=== PATIENT | female | born 1940 | race African-American/Black ===

== ENCOUNTER 2019-07-21 20:01 | Emergency (ER) | payer OTHER ==
--- OUTSIDE RECORDS SUMMARY | 2019-07-21 20:05 | XMS REPORT | Clinical Summary ---
:1940 Author Organization [facility] Address [address] [place] [address] Care Team Providers Name Role Phone Felicita Duran MD Primary Care Provider Allergies Active Allergy Reactions Severity Noted Date Comments Codeine Itching High 05/28/2018 Severe itching Sulfa (Sulfonamide Other (See Comments) High 08/21/2018 S evere dry mouth Antibiotics) Medications Medication Sig Dispensed Refills Start Date End Date Status metoprolol 50 mg 2 (two) 2 04/19/2018 Acti ve tartrate times a day. (LOPRESSOR) 50 mg tablet rosuvastatin Take 40 mg by 0 05/08/2018 Ac tive (CRESTOR) 40 MG mouth nightly. tablet clopidogrel Take 1 tablet 90 tablet 3 05/28/2018 Act caitlyn (PLAVIX) 75 mg (75 mg total) tabletIndications: by mouth Coronary artery daily. disease involving eek coronary artery of eek heart without angina pectoris aspirin (ECOTRIN) Take 81 mg by 0 Active 81 MG enteric mouth daily. coated tablet amLODIPine Take 10 mg by 0 Activ e (NORVASC) 10 mg mouth daily. tablet multivit/folic Take 1 tablet 0 A ctive acid/vit K1 by mouth (ONE-A-DAY WOMEN'S daily. 50 PLUS ORAL) metFORMIN Take 1 tablet 0 08/25/2018 Activ e (GLUCOPHAGE) 500 (500 mg total) mg tablet by mouth 2 (two) times a day with meals. Hold metformin for 48 hours.Restart at 08/25/[address] 1 tablet 100 tablet 3 09/10/2018 Active (NITROSTAT) 0.4 MG (0.4 mg total) SL under the tabletIndications: tongue every 5 Coronary artery (five) minutes disease involving as needed for eek coronary chest pain. artery of eek heart without angina pectoris furosemide (LASIX) as needed. 0 09/16/2018 Active 20 mg tablet potassium chloride as needed. 0 09/16/2018 Active 20 mEq tablet extended release isosorbide Take 1 tablet 90 tablet 3 02/27/2019 02/26/19 Acti ve mononitrate (30 mg total) 21 (IMDUR) 30 MG 24 by mouth every hr morning. tabletIndications: Coronary artery disease involving eek coronary artery of eek heart without angina pectoris amLODIPine TK 1 T PO D 2 04/08/2018 08/22/19 Discon tinued (NORVASC) 10 mg 19 tablet metFORMIN TK 1 T PO WITH 1 05/09/2018 08/22/19 Disc ontinued (GLUCOPHAGE) 500 MEALS BID 19 mg tablet metFORMIN Take 500 mg by 0 08/24/19 Disco ntinued (GLUCOPHAGE) 500 mouth 2 (two) 19 (Reorder) mg tablet times a day with meals. nitroglycerin Place 0.4 mg 0 09/11/19 Dis continued (NITROSTAT) 0.4 MG under the 19 ( Reorder) SL tablet tongue every 5 (five) minutes as needed for chest pain. isosorbide Take 1 tablet 90 tablet 3 09/10/2018 02/27/19 Disc ontinued mononitrate (30 mg total) 20 (Reo rder) (IMDUR) 30 MG 24 by mouth every hr morning. 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 08/06/2018 Overview: Added automatically from request for damaris schuyler [id number] SOB (shortness of breath) 07/16/2018 Bilateral carotid bruits 07/16/2018 Encounter to establish care 05/28/2018 Coronary artery disease involving eek coronary kay ry of eek heart 05/28/2018 without angina pectoris TIA (transient ischemic attack) 05/28/2018 Encounters Date Type Specialty Care Team Description 05/19/2019 Travel 02/27/2019 Orders Only Cardiology Agustin White MA Coronary arter y disease involvi ng eek coronary artery of nativ e heart without a ngina pectoris 11/26/2018 Office Visit Cardiology Cynthia Grubbs Coronary artery disease involving eek coronary artery of eek heart without angina pectoris (Primary Dx); MD Fadumo Stented coronar y artery 09/10/2018 Office Visit Cardiology Cynthia Grubbs Coronary artery disease involving eek coronary artery of eek heart without angina pectoris (Primary Dx); MD Fadumo Chest pressure; Stented coronar y artery 08/26/2018 Telephone Cardiology Agustin White MA Patient Questi on 08/23/2018 Patient Outreach Quality Radha Franco RN 08/22/2018 Surgery Procedural Cynthia Grubbs PCI stent [[id number] Cardiology MD Fadumo (CPT)] 08/22/2018 - Hospital Encounter Cardiology Cynthia Grubbs 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 (HCC) (Primary Dx); 08/23/2018 MD Fadumo Coronary artery disease involving eek heart with angina pectoris, unspecified vessel or lesion type (HCC); Abnormal stress test 08/06/2018 Office Visit Cardiology Cynthia Grubbs Abnormal stress test (Primary Dx); MD Fadumo Coronary artery disease involving eek coronary artery of eek heart without angina pectoris; SOB (shortness of breath) 08/06/2018 Orders Only Cardiology Nakita Coronary artery disease involving eek heart with angina pectoris, unspecified vessel or lesion type (HCC) (Primary Dx); JM Butt Abnormal stress test 07/29/2018 Orders Only Cardiology Shannan Garcia MA after 07/20/2018 Social History Tobacco Use Types Packs/Day Years Used Date Never Smoker Smokeless Tobacco: Never Used Alcohol Use Drinks/Week oz/Week Comments Not Currently Sex Assigned at Date Recorded Not on file Job Start Date Occupation Industry Not on file Not on file Not on file Travel History Travel Start Travel End No recent travel history available. Last Filed Vital Signs Vital Sign Reading Time Taken Comments Blood Pressure 139/69 11/26/2018 10:45 AM CDT Pulse 59 11/26/2018 10:45 AM CDT Temperature 36.7 C (98 F) 08/23/2018 7:00 AM CDT Respiratory Rate 56 08/23/2018 9:30 AM CDT Oxygen Saturation 97% 08/23/2018 8:55 AM CDT Inhaled Oxygen Concentration - - Weight 80.7 kg (178 lb) 11/26/2018 10:45 AM CDT Height 162.6 cm (5' 4") 11/26/2018 10:45 AM CDT Body Mass Index 30.55 11/26/2018 10:45 AM CDT Plan of Treatment Health Maintenance Due Date Last Done Comments SHINGLES VACCINES (#1) 1992 65+ PNEUMOCOCCAL VACCINE (1 of 2 - PCV13) 07/05/2007 INFLUENZA VACCINE 09/13/2019 Implants Implanted Type Area Emt Intermediate Device Shelf Model / Identifier Expiration Serial / Date Lot Stent Coronary Syst Synergy (Mr) 3.00mm X 38mm - [id number] Coronary N/A: BSC 06/11/2020 [id number] / Implanted: 08/22/2018 at [facility] (Quantity not on file) Willis nts N/A INTERVENTIONAL / CARDIOLOGY [id number] System Clsr Sut Meditd 6fr Perclose Proglide - [id number] Surgic al N/A: MEJIA VASCULAR 05/12/2020 [id number] / Implanted: 08/22/2018 at [facility] (Quantity not on file) Imp lants; N/A DEVICES / Expanders; [id number] Extenders; Surgical Wires System Clsr Sut Meditd 6fr Perclose Proglide - [id number] Surgic al N/A: MEJIA VASCULAR 05/12/2020 [id number] / Implanted: 08/22/2018 at [facility] (Quantity not on file) Imp lants; N/A DEVICES / Expanders; [id number] Extenders; Surgical Wires Procedures Procedure Name Priority Date/Time Associated Comments Diagnosis ECG 12-LEAD Routine 09/10/2018 9:41 Chest pressure Results f or this AM CDT procedure are i n the results section. HC COMPLETE BLD COUNT Routine 08/23/2018 4:30 Re sults for this W/AUTO DIFF AM CDT procedure are i n the results section. ECG 12-LEAD Routine 08/23/2018 4:16 Results for this AM CDT procedure are i n the results section. ESTIMATED GFR Routine 08/23/2018 4:00 Results fo r this AM CDT procedure are i n the results section. BASIC METABOLIC PANEL Routine 08/23/2018 4:00 Re sults for this AM CDT procedure are i n the results section. ACTIVATED CLOTTING TIME Routine 08/22/2018 1:08 Results for this PM CDT procedure are i n the results section. ACTIVATED CLOTTING TIME Routine 08/22/2018 12:26 Results for this PM CDT procedure are i n the results section. ACTIVATED CLOTTING TIME Routine 08/22/2018 11:18 Results for this AM CDT procedure are i n the results section. CONSULT CARDIAC REHAB Routine 08/22/2018 11:02 PHASE 1 AM CDT ECG PRE/POST OP Routine 08/22/2018 10:58 Results for this AM CDT procedure are i n the results section. CV SELECTIVE CORONARY Routine 08/22/2018 10:20 Coronary artery Results for this ANGIOGRAPHY AM CDT disease involving procedure are in eek heart with the result s angina pectoris, section. unspecified vessel or lesion type (HCC) Abnormal stress test CV PCI STENT Routine 08/22/2018 10:20 Coronary artery Results for this AM CDT disease involving procedure are in eek heart with the result s angina pectoris, section. unspecified vessel or lesion type (HCC) Abnormal stress test ACTIVATED CLOTTING TIME Routine 08/22/2018 10:08 Results for this AM CDT procedure are i n the results section. ACTIVATED CLOTTING TIME Routine 08/22/2018 10:02 Results for this AM CDT procedure are i n the results section. ACTIVATED CLOTTING TIME Routine 08/22/2018 9:50 Results for this AM CDT procedure are i n the results section. ACTIVATED CLOTTING TIME Routine 08/22/2018 9:44 Results for this AM CDT procedure are i n the results section. ACTIVATED CLOTTING TIME Routine 08/22/2018 9:31 Results for this AM CDT procedure are i n the results section. ACTIVATED CLOTTING TIME Routine 08/22/2018 9:25 Results for this AM CDT procedure are i n the results section. ACTIVATED CLOTTING TIME Routine 08/22/2018 9:19 Results for this AM CDT procedure are i n the results section. ACTIVATED CLOTTING TIME Routine 08/22/2018 9:13 Results for this AM CDT procedure are i n the results section. ACTIVATED CLOTTING TIME Routine 08/22/2018 9:00 Results for this AM CDT procedure are i n the results section. ACTIVATED CLOTTING TIME Routine 08/22/2018 8:54 Results for this AM CDT procedure are i n the results section. ACTIVATED CLOTTING TIME Routine 08/22/2018 8:47 Results for this AM CDT procedure are i n the results section. ACTIVATED CLOTTING TIME Routine 08/22/2018 8:40 Results for this AM CDT procedure are i n the results section. ACTIVATED CLOTTING TIME Routine 08/22/2018 8:34 Results for this AM CDT procedure are i n the results section. ACTIVATED CLOTTING TIME Routine 08/22/2018 8:28 Results for this AM CDT procedure are i n the results section. ACTIVATED CLOTTING TIME Routine 08/22/2018 8:27 Results for this AM CDT procedure are i n the results section. ACTIVATED CLOTTING TIME Routine 08/22/2018 8:21 Results for this AM CDT procedure are i n the results section. POC GLUCOSE Routine 08/22/2018 6:07 Results for this AM CDT procedure are i n the results section. ECG 12-LEAD STAT 08/22/2018 5:57 Results for this AM CDT procedure are i n the results section. COPY RECEIVED FROM: Routine 08/12/2018 10:03 Resu lts for this AM CDT procedure are i n the results section. COPY(IES) SENT TO: Routine 08/12/2018 10:03 Resul ts for this AM CDT procedure are i n the results section. CBC WITH PLATELET AND STAT 08/12/2018 10:03 Abnormal stress Results for this DIFFERENTIAL AM CDT test procedure are in Coronary artery the results disease involving section. eek coronary artery of eek heart without angina pectoris SOB (shortness of breath) COMPREHENSIVE METABOLIC STAT 08/12/2018 10:03 Abnormal stre ss Results for this PANEL AM CDT test procedure are in Coronary artery the results disease involving section. eek coronary artery of eek heart without angina pectoris SOB (shortness of breath) PARTIAL THROMBOPLASTIN STAT 08/12/2018 10:03 Abnormal stres s Results for this TIME (PTT) AM CDT test procedure are in Coronary artery the results disease involving section. eek coronary artery of eek heart without angina pectoris SOB (shortness of breath) PROTHROMBIN TIME WITH STAT 08/12/2018 10:03 Abnormal stress Results for this INR AM CDT test procedure are in Coronary artery the results disease involving section. eek coronary artery of eek heart without angina pectoris SOB (shortness of breath) NM MYOCARDIAL PERFUSION Routine 08/01/2018 8:47 SOB (shortnes s of Results for this REST STRESS 1 DAY AM CDT breath) procedure are in CAD in eek the results artery section. Bilateral carotid bruits CV STRESS TEST NUCLEAR Routine 08/01/2018 8:47 SOB (shortness of Results for this CARDIO AM CDT breath) procedure are in CAD in eek the results artery section. US CAROTID DUPLEX Routine 07/30/2018 8:51 SOB (shortness of R esults for this BILATERAL AM CDT breath) procedure are in CAD in eek the results artery section. Bilateral carotid bruits TTE COMPLETE, WO Routine 07/24/2018 5:22 SOB (shortness of Re sults for this CONTRAST, W DOPPLER PM CDT breath) procedure are in (34344) CAD in eek the results artery section. after 07/20/2018 Results ECG 12 lead (09/10/2018 9:41 AM CDT)Only the most recent of3 resultswithin the time period is included. Pathologist Sig nature Ventricular rate 54 [facility] Atrial rate 54 [facility] NV interval 180 [facility] QRSD interval 90 [facility] QT interval 456 [facility] QTC interval 432 [facility] P axis 1 51 [facility] QRS axis 1 -45 [facility] T wave axis -62 [facility] EKG impression Sinus bradycardia-Left axis deviation-Poor R Wave Progression-T wave abnormality, consider anterolateral ischemia-T wave abnormality, consider inferior ischemia-Abnormal ECG-In automated comparison with [facility] MUSE ECG of 23-AUG-2018 04:16,-Inverted T waves have replaced nonspecific T wave abnormality in Lateral leads- Specimen Narrative Performed At This result has an attachment that is no t available. Performing Organization Address City/State/Zipcode Phone Number [facility] [place] [address] [place] [address] CBC with platelet and differential (08/23/2018 4:30 AM CDT)Only the most recent of2 resultswithin the time period is included. WBC 7.37 4.50 - 11.00 [facility] RBC 3.73 (L) 4.20 - 5.50 [facility] HGB 10.9 (L) 12.0 - 16.0 [facility] g/dL [facility] HCT 32.7 (L) 37.0 - 47.0 % [facility] MCV 87.7 82.0 - 100.0 [facility] MCH 29.2 27.0 - 34.0 pg [facility] MCHC 33.3 31.0 - 37.0 [facility] g/dL HOSPITAL RDW - SD 45.7 37.0 - 55.0 fL [facility] MPV 11.3 8.8 - 13.2 fL [facility] Platelet count 205 150 - 400 k/uL [facility] Nucleated RBC 0.00 /100 WBC [facility] Neutrophils 59.4 39.0 - 69.0 % [facility] Lymphocytes 28.4 25.0 - 45.0 % [facility] Monocytes 10.0 0.0 - 10.0 % [facility] Eosinophils 1.5 0.0 - 5.0 % [facility] Basophils 0.4 0.0 - 1.0 % [facility] Immature granulocytes 0.3Comment: 0.0 - 1.0 % [facility] "[facility] granulocytes" (promyelocytes , myelocytes, metamyelocytes ) Specimen Blood Performing Organization Address City/[facility]/Zipcode Phone Number [facility] DEPARTMENT OF PATHOLOGY AND [address] [place] [phone] Estimated GFR (08/23/2018 4:00 AM CDT) Estimated GFR 69 mL/min/1.73 [facility] Comment: m2 HOSPITAL Catergory Units Interpretation G1 >=90 Normal or high G2 60-89 Mildly decreased G3a 45-59 Mildly to moderately decreas ed G3b 30-44 Moderately to severely decre ased G4 15-29 Severely decreased G5 <15 Kidney failure The eGFR was calculated using the Chronic Kidney Disea se Epidemiology Collaboration (CKD-EPI) equation. Interpretation is based on recommendations of the National Kidney Foundation-Kidney Disease Outcomes Rommel lity Initiative (NKF-KDOQI) published in 2014. Specimen Plasma specimen Performing Organization Address City/[facility] Phone Number [facility] DEPARTMENT OF PATHOLOGY AND [address] [place] [address] [address] Basic metabolic panel (08/23/2018 4:00 AM CDT) Pathologist Sig nature Sodium 143 135 - 148 mEq/L [facility] Potassium 3.5 3.5 - 5.0 mEq/L [facility] Chloride 109 98 - 112 mEq/L [facility] CO2 24 24 - 31 mEq/L [facility] Anion gap 10@ANIO 7 - 15 mEq/L [facility] BUN 11 8 - 23 mg/dL [facility] Creatinine 0.93 (H) 0.50 - 0.90 mg/dL [facility] Glucose 93 65 - 99 mg/dL [facility] Calcium 8.9 8.8 - 10.2 mg/dL [facility] Specimen Plasma specimen Performing Organization Address City/State/Zipcode Phone Number [facility] DEPARTMENT OF PATHOLOGY AND [address] [place] [address] [phone] [address] Activated clotting time (08/22/2018 1:08 PM CDT)Only the most recent of19 resultswithin the time period is included. Activated clotting 175 (H) 96 - 152 sec [facility] Comment: HOSPITAL Meter ID: [id number] Sawmill Tally Clerk: Sharifa Crum Specimen Performing Organization Address City/[facility] Cent[facility] Phone Number [facility] DEPARTMENT OF PATHOLOGY AND [address] [place] [address] [phone] [address] ECG Pre/Post Op (in AM) (08/22/2018 10:58 AM CDT) Pathologist Sig nature Ventricular rate 54 [facility] Atrial rate 54 [facility] NV interval 190 [facility] QRSD interval 90 [facility] QT interval 468 [facility] QTC interval 443 [facility] P axis 1 25 [facility] QRS axis 1 -45 [facility] T wave axis -54 [facility] MUSE EKG impression Sinus bradycardia-Left anter ior fascicular block-Voltage criteria for left ventricular hypertrophy-Cannot rule out Inferior infarct (masked by fascicular block?) , age undetermined-T wave abnormality, consider anterolateral ischemia-Abnormal [facility] MUSE ECG- Specimen Narrative Performed At This result has an attachment that is no t available. Performing Organization Address City/[facility] Cent[facility]ode Phone Number [address] [address] Cv laboratory analyst procedure (08/22/2018 10:20 AM CDT) Specimen Narrative Performed At This result has an attachment that is no t available. [facility] Attending: Dr. Cynthia Grubbs Interventional Fellow: Hugo Mari MD EQUIPMENT/ANTICOAGULATION: Rt VEHICLE DYNAMICS ENGINEER 7F initially AL 0.75 followed by AL 0.75 with s ideholes, followed by JR4 guide, Lt VEHICLE DYNAMICS ENGINEER 6F diagnostic JL5, Lt CFV 4F veno us sheath [employer] Specialist 200, Cinthya 3, Fielder XT, Mohamud Blue coronary wire Anticoagulation: Heparin with ACT >250 sec prior to procedure PROCEDURAL DETAILS: The LMT was engaged with the JL5 diagnostic catheter for retrograde injections. The RCA was initially engaged with the AL 0.75 guide c mak. We decided to use the same guide catheter however with sideholes. We initially probed the proximal end of the LOG RIDER with a pilot plant technician 200 ov er Corsair. We decided that the guide was not sitting as adequately a s we had hoped. We thus switched our guide to a 7 Faroese FR4 Guide. We continued to probe the proximal LOG RIDER in the RCA with the Corsair and pilot plant technician 200. We performed antegrade wire escalation with the pilot plant technician 200, Cinthya 3, and Fielder XT coronary wires. Based on retrograde injections, we not ed that the LOG RIDER ended proximally to the bifurcation of the PDA and PL branches of the RCA. We eventually were able to reach luminal in the PDA wi th our wire and had good distal injection. We were concerned that our diss ection plane did involve the bifurcation. We advanced our corsair to th is bifurcation and ultimately switched out our wires for a Mohamud Blue gilda nary wire into the distal PDA. We then proceeded to dilate with a 1.5 x 1 5 mm balloon followed by 2.5 x 25 mm balloon. Following this, ang iography revealed good distal blood flow with dissection planes present. At this time we gave intracoronary nitroglycerin. However post this angiography revealed that the PL branch had shut down. This is likely a r esult of the dissection plane propagating into this branch. We th en decided to go ahead and start our stenting. We proceeded with a 3. 0 x 38 mm Synergy drug-eluting stent in the distal to mid portion of the RCA just proximal to the bifurcation. We then landed a 3.5 x 38 mm willis nt slightly overlapping this previous stent and into the ostial RC A. We then postdilated the stents with a 3.5 m noncompliant ballo on. Post angiography revealed good MIRANDA-3 flow in the distal RP DA and the aforementioned PL branch that was now occluded. No s ignificant EKG changes or chest pain during the procedure. The overal l length of the LOG RIDER was approximately 70 mm. Limited echo without effusion. HEMOSTASIS: Proglide bifemoral access, manual hemostas is for the venous sheath ADDITIONAL POST-PROCEDURE MEDICATIONS: PLAN: 1. ASA 81mg daily 2. Clopidogrel 75mg daily . 3. Cardiac medical therapy and aggressive risk factor modification. Cardiac rehabilitation. 4. Transferred in stable condition Performing Organization Address [facility] [place] Phone Number [facility] [address] [place] [address], POC glucose (08/22/2018 6:07 AM CDT) Pathologist Sig [employer] POC glucose 108 (H) 65 - 99 mg/dL [facility] Comment: [facility] Notified RN Meter ID: [id number] Sawmill Tally Clerk: Buddy Rivera Specimen Performing Organization Address [facility] [place] Phone Number [facility] DEPARTMENT OF PATHOLOGY AND [address] [place], [place] [address] GENOMIC MEDICINE [facility] [address] [place] [address] COPY RECEIVED FROM: (08/12/2018 10:03 AM CDT) Pathologist [facility] [place] Copy received from: [employer] Comment: [address] [place] [address] Specimen Narrative Performed At FASTING:NO [facility] FASTING: NO Performing Organization Address [facility] [place] Phone Number [facility] COPY(IES) SENT TO: (08/12/2018 10:03 AM CDT) Pathologist Sig nature Copies/mL [facility] Comment: TAN CARDIO [address] [facility] [address] [place] [address] Specimen Narrative Performed At FASTING:NO [facility] FASTING: NO Performing Organization Address [facility] [place] Phone Number [facility] Partial thromboplastin time, activated (08/12/2018 10:03 AM CDT) PTT 25 22 - 34 sec [facility] Comment: SAGE This test has not been validated for monitoring unfractionated heparin therapy. For testing that is validated for this type of therapy, please refer to the Heparin Anti-Xa assay (test code 91920). For additional information, please refer to [email or web address].Topicmarks/faq/NKF752 (This link is being provided for informational/educational purposes only.) Specimen Blood Narrative Performed At FASTING:NO [facility] FASTING: NO Resulting Agency Comment Performing Organization Information: Site ID: [facility] Name: [id number] Address: [address] [place] [phone] Director: Sosa Mishra Performing Organization Address City/[facility] Centercode Phone [place] [address] Prothrombin time with INR (08/12/2018 10:03 AM CDT) INR 1.0 [facility] Comment: SAGE Reference Range 0.9-1.1 Moderate-intensity Warfarin Therapy 2.0-3.0 Higher-intensity Warfarin Therapy 3.0-4.0 Prothrombin time 10.4 9.0 - 11.5 [facility] Comment: sec SAGE For more information on this test, go to: [email or web address]/LAV328 Specimen Blood Narrative Performed At FASTING:NO [facility] FASTING: NO Resulting Agency Comment Performing Organization Information: Site ID: [facility] Name: [id number] Address: [address] [place] [phone] Director: Sosa Mishra Performing Organization Address City/[facility] Centercode Phone [place] [address] Comprehensive metabolic panel (08/12/2018 10:03 AM CDT) Glucose 88 65 - 139 [facility] Comment: mg/dL SAGE Non-fasting reference interval BUN, whole blood 12 7 - 25 mg/dL [facility] Creatinine 1.19 (H) 0.60 - 0.93 [facility] Comment: mg/dL SAGE For patients >49 years of age, the reference limit for Creatinine is approximately 13% higher for people identified as -[place]. EGFR Non-Afr. 44 (L) > OR = 60 [facility] [place] mL/min/1.73m SAGE 2 EGFR 51 (L) > OR = 60 [facility] [place] mL/min/1.73m S[facility] 2 BUN/creatinine 10 6 - 22 [facility] ratio (calc) [facility] Sodium 144 135 - 146 [facility] mmol/L [facility] Potassium 3.9 3.5 - 5.3 [facility] mmol/L [facility] Chloride 107 98 - 110 [facility] mmol/L [facility] CO2 27 20 - 32 [facility] mmol/L [facility] Calcium 9.9 8.6 - 10.4 [facility] mg/dL [facility] Protein 7.1 6.1 - 8.1 [facility] g/dL [facility] Albumin, S 4.3 3.6 - 5.1 [facility] g/dL [facility] Globulin, total 2.8 1.9 - 3.7 [facility] g/dL (calc) SAGE Albumin/globulin 1.5 1.0 - 2.5 [facility] ratio (calc) [facility] Total bilirubin 0.4 0.2 - 1.2 [facility] mg/dL [facility] Alkaline 120 33 - 130 U/L [facility] phosphatase SAGE AST 17 10 - 35 U/L [facility] SAGE ALT 18 6 - 29 U/L [facility] SAGE Specimen Blood Narrative Performed At FASTING:NO [facility] FASTING: NO Resulting Agency Comment Performing Organization Information: Site ID: [id number] Name: [email or web address] telly Address: [address] [place] [id number] Director: Sosa Mishra Performing Organization Address City/State/Zipcode Phone Number As Seen on TV [address] [address] Cv stress test (08/01/2018 8:47 AM CDT) Resting HR 74 [facility] Resting BP 145 [facility] Peak MET Achieved 6.1 [facility] Protocol Name AMITA [facility] Time in Exercise 00:04:15 [facility] Phase Max Systolic BP 210 [facility] Max Diastolic BP 94 [facility] Max Heart Rate 142 [facility] Max Predicted Heart 144 [facility] Rate Target HR Formula (220 - Age)*85% [facility] Test Indication Shortness of Breath [facility] Arrhy During Ex [facility] ECG Interp Before EX [facility] ECG Interp During Ex [facility] Ex Summary Comment [facility] Chest Pain Statement none [facility] Overall HR Response [facility] to Exercise Overall BP Response [facility] To Exercise Reason for Fatigue [facility] Termination Stress Test Waveform interpreted in [facility] Impression report associated with image study. No interpretation is provided as part of this Stress ECG report.--Electronically Signed By Jorge MONTGOMERY, Noelle Craig ([id number]), editor managing newspaper Khoi Sethi ([id number]) on 08/07/2018 10:14:00 AM Specimen Narrative Performed At This result has an attachment that is no t available. Performing Organization Address City/State/Zipcode Phone Number [facility] [address] [place] [address] Nm myocardial perfusion (08/01/2018 8:47 AM CDT) Specimen Narrative Performed At [facility] [address] [place] [address] Myocardial Pe rfusion Imaging Report Stress ECG tracings are availab le in [facility], [employer] and [employer] Web All ECG interpretations a re included in this report Pat.Name: KAYLNYN JOSEPH Pat.ID: [id number] .Date: 07/30/2018 Refer.MD: Daron Exam Time: 7:30:00 AM Study Type:Myocardial Perfusion Imaging Height: 64in Weight: 177.63lb BSA: 1.86 m2 Ag e: 1940,78Y Sex: FEMALE Nuclear Tech:Vasyl Ta MOAndrew Nuclear Event ID:[id number] Order ID: [id number] Reason for Study:CAD, unspecified*, Shor tness of breath Procedures:Single Day Rest / Stress Race: B Clinical Symptoms:Exercise SUMMARY: BASELINE ECG Normal Sinus Rhythm STRESS TEST RESULTS Maximal Predicted HR 144 beats/minute 85% Maximal Predicted HR 122 beats/minute Stress Test Duration 04 minutes 15 seconds Resting Heart Rate 71 beats/minute Ma ximal Heart Rate 142 beats/minute Resting Blood Pressure 145/84 mmHg Ma ximal Blood Pressure 210/94 mmHg % Maximal Heart Rate Achieved 99% METS Achieved/Maximal RPP 6.1 ,820 Symptoms During Test Dyspnea Reason for Stopping Test Patient achi eved >= 85% maximal predicted heart rate for age Maximal ST-segment shift None Stress-Induced Arrhythmias None Montejo Treadmill Score Ischemic electrocardiographic changes ( ST-segment depression) did not occur at peak exercise stress. _. STRESS TEST INTERPRETATION Normal maxim al exercise treadmill test. Exercise tolerance is good. The Montejo T readmill Score is of low prognostic risk. __. SCINTIGRAPHIC RESULTS Perfusion Defect Size (% LV) 15% Total 0% Ischemia 15% Scar Left Ventricular Perfusion Results There is a moderate inferoapical, mid i nferior, basal inferior perfusion defect during stress which rem ains unchanged with rest imaging. Gated SPECT Results The post stress left ventricular ejecti on fraction is 59% with akinesis of the inferior wall. Left ve ntricular end-diastolic volume is 82 ml; end-systolic volume is 34 ml . The left ventricle is of normal size at stress and rest. The ri ght ventricle is of normal size with normal wall motion. Conclusion Abnormal regadenoson Tc-99m tetrofosmin myocardial perfusion study compatible with scar in the right torres ry artery vascular territory. The LVEF is normal. Comments The study results indicate a intermedia te (1%-2%) annual risk for a cardiac or non-fatal myocardial in farction. Study Quality/Artifacts The study quality is good. Comparison to Previous Study None available. Signed 07/31/2018 4:35:00 PM Noelle Patel MD Procedure Note Interface, Radiology Results In - 2018 8:49 AM CDT [facility] and Cardiac CT [address] [place] [address] Myocardial Perfusion I maging Report Stress ECG tracings are available in [facility], [employer] and [employer] Web All ECG interpretations are in cluded in this report Pat.Name: KAYLYNN JOSEPH Pat.I D: [id number] St.Date: 07/30/2018 Refer .: Daron Exam Time: 7:30:00 AM Study Type:Myocardial Perfusion Imaging Height: 64in Weigh t: 177.63lb BSA: 1.86 m2 Age: 5 1940,78Y Sex: FEMALE Nucle ar Tech:GERA Dobbs Nuclear Event ID:[id number] Order ID: [id number] Reason for Study:CAD, unspecified*, Shor tness of breath Procedures:Single Day Rest / Stress Race: B Clinical Symptoms:Exercise SUMMARY: BASELINE ECG Normal Sinus Rhythm STRESS TEST RESULTS Maximal Predicted HR 144 beats/minute 85% Maximal Predicted HR 122 beats/minute Stress Test Duration 04 minutes 15 se conds Resting Heart Rate 71 beats/minute Max imal Heart Rate 142 beats/minute Resting Blood Pressure 145/84 mmHg Max imal Blood Pressure 210/94 mmHg % Maximal Heart Rate Achieved 99% METS Achieved/Maximal RPP 6.1 ,820 Symptoms During Test Dyspnea Reason for Stopping Test Patient achie lexie >= 85% maximal predicted heart rate for age Maximal ST-segment shift None Stress-Induced Arrhythmias None Montejo Treadmill Score Ischemic electrocardiographic changes ( ST-segment depression) did not occur at peak exercise stress. _. STRESS TEST INTERPRETATION Normal maxim al exercise treadmill test. Exercise tolerance is good. The Montejo Tr eadmill Score is of low prognostic risk. __. SCINTIGRAPHIC RESULTS Perfusion Defect Size (% LV) 15% Total 0% Ischemia 15% Scar Left Ventricular Perfusion Results There is a moderate inferoapical, mid i nferior, basal inferior perfusion defect during stress which rem ains unchanged with rest imaging. Gated SPECT Results The post stress left ventricular ejecti on fraction is 59% with akinesis of the inferior wall. Left bessie tricular end-diastolic volume is 82 ml; end-systolic volume is 34 ml. The left ventricle is of normal size at stress and rest. The rig ht ventricle is of normal size with normal wall motion. Conclusion Abnormal regadenoson Tc-99m tetrofosmin myocardial perfusion study compatible with scar in the right torres ry artery vascular territory. The LVEF is normal. Comments The study results indicate a intermedia te (1%-2%) annual risk for a cardiac or non-fatal myocardial in farction. Study Quality/Artifacts The study quality is good. Comparison to Previous Study None available. Signed 07/31/2018 4:35:00 PM Noelle Patel MD Performing Organization Address [facility]State/[facility] Phone Number [facility] [address] [place] [address] carotid duplex (07/30/2018 8:51 AM CDT) Specimen Narrative Performed At [facility] Carotid Kay ry Ultrasound Report Pat.Name: KAYLYNN JOSEPH Pat.ID: [id number] .Date: 07/30/2018 Refer.MD: CYNTHIA GRUBBS MD Exam Time: 8:14:00 AM Study Type:C arotid Age: 7 1940,78Y Sex: FEMALE Sonogrphr: Ruth Solano RVT Pat. Stat.:Outp atient Room: [facility] ol: SD, CPT - 4: 94951 Echo Even t ID:[id number] Order ID: [id number] Reason for Study:Carotid bruit, Hx of CA D, HTN, HLD, DM Race: B SUMMARY: CAROTID ARTERY SCAN RIGHT: There is smooth intimal lining in the common carotid artery. There is hard and calcified plaque not ed in the bulb extending into the proximal external carotid artery. Colorflow is undisturbed. There is antegrade flow in the vertebral artery. LEFT: There is smooth intimal l ining in the common carotid artery. There is hard and soft plaque no john paul in the bulb extending into the proximal internal carotid artery. Colorflow is normal. There is antegrade flow in the vertebral artery. PRELIMINARY FINDINGS 1. Non stenotic plaque in the right c arotid bulb. 2. <50% stenosis in the left bulb/inter nal carotid artery. 3. <50% stenosis in the right external carotid artery. 4. There is antegrade flow in the verte bral artery, bilaterally. PHYSICIAN INTERPRETATION Bilateral carotid duplex examination de monstrated atherosclerotic plaques in both carotid bulbs and left i nternal carotid artery. Less than 50% stenosis in the bulb and market research intern al carotid artery, bilaterally. <50% stenosis in the right external car otid artery. Both vertebral arteries are antegrade. Carotid Findings: Right Left Verteb.Flw Antegrade Antegrade Subclavian Biphasic Biphasic MEASUREMENTS: DOPPLER Right CCA Dist CCA Dist PSV 49.2 cm/s CCA Dist EDV 9.84 cm/s Right CCA Mid CCA Mid PSV 53.6 cm/s CCA Mid EDV 10.9 cm/s Right CCA Prox CCA Prox PSV 60.1 cm/s CCA Prox EDV 8.75 cm/s Right Bulb Bulb PSV 47 cm/s Bulb EDV 12 cm/s Right ECA Prox ECA Prox PSV 40.5 cm/s ECA Prox EDV 0 cm/s Right ICA Mid ICA Mid PSV 35.3 cm/s ICA Mid EDV 10.3 cm/s Right ICA Prox ICA Prox PSV 38.1 cm/s ICA Prox EDV 9.78 cm/s Right Vertebral Vertebral PSV 42.7 cm/s Vertebral EDV 9.84 cm/s Right SCA Prox SCA Prox PSV 88.2 cm/s SCA Prox EDV 0 cm/s Left CCA Dist CCA Dist PSV 48.5 cm/s CCA Dist EDV 9.95 cm/s Left CCA Mid CCA Mid PSV 60.9 cm/s CCA Mid EDV 11.2 cm/s Left CCA Prox CCA Prox PSV 74.3 cm/s CCA Prox EDV 12.4 cm/s Left Bulb Bulb PSV 43.5 cm/s Bulb EDV 11.2 cm/s Left ECA Prox ECA Prox PSV 39.8 cm/s ECA Prox EDV 0 cm/s Left ICA Dist ICA Dist PSV 76.1 cm/s ICA Dist EDV 21.7 cm/s Left ICA Mid ICA Mid PSV 64.5 cm/s ICA Mid EDV 15.9 cm/s Left ICA Prox ICA Prox PSV 51 cm/s ICA Prox EDV 11.2 cm/s Left Vertebral Vertebral PSV 33.8 cm/s Vertebral EDV 7.24 cm/s Right ICA/CCA Ratio ICA/CCA PSV 0.711 Left ICA/CCA Ratio ICA/CCA PSV 0.837 Right ICA Dist ICA Dist PSV 47 cm/s ICA Dist EDV 16 cm/s Left SCA Prox SCA Prox PSV 116 cm/s SCA Prox EDV 0 cm/s Signed 08/02/2018 11:21 AM Cynthia Grubbs MD Procedure Note Interface, Radiology Results In - 2018 11:22 AM CDT [facility] Carotid Artery Ultras ound Report Pat.Name: KAYLYNN JOSEPH Pat.I D: [id number] St.Date: 07/30/2018 Refer .MD: CYNTHIA GRUBBS MD Exam Time: 8:14:00 AM Study Type:Carotid Age: 5 1940,78Y Sex: FEMALE Sonogrphr: Ruth Solano RVT Pat. Stat.:Outpatient Room: [facility] Vol: SD, CPT - 4: 29666 Echo Event ID:[id number] Order ID: [id number] Reason for Study:Carotid bruit, Hx of CA D, HTN, HLD, DM Race: B SUMMARY: CAROTID ARTERY SCAN RIGHT: There is smooth intimal lining in the common carotid artery. There is hard and calcified plaque note d in the bulb extending into the proximal external carotid artery. C olorflow is undisturbed. There is antegrade flow in the vertebral artery. LEFT: There is smooth intimal lini ng in the common carotid artery. There is hard and soft plaque no john paul in the bulb extending into the proximal internal carotid artery. C olorflow is normal. There is antegrade flow in the vertebral artery. PRELIMINARY FINDINGS 1. Non stenotic plaque in the right ca rotid bulb. 2. <50% stenosis in the left bulb/inter nal carotid artery. 3. <50% stenosis in the right external carotid artery. 4. There is antegrade flow in the verte bral artery, bilaterally. PHYSICIAN INTERPRETATION Bilateral carotid duplex examination de monstrated atherosclerotic plaques in both carotid bulbs and left i nternal carotid artery. Less than 50% stenosis in the bulb and market research intern al carotid artery, bilaterally. <50% stenosis in the right external car otid artery. Both vertebral arteries are antegrade. Carotid Findings: Right Left Verteb.Flw Antegrade Antegrade Subclavian Biphasic Biphasic MEASUREMENTS: DOPPLER Right CCA Dist CCA Dist PSV 49.2 cm/s CCA Dist EDV 9.84 cm/s Right CCA Mid CCA Mid PSV 53.6 cm/s CCA Mid EDV 10.9 cm/s Right CCA Prox CCA Prox PSV 60.1 cm/s CCA Prox EDV 8.75 cm/s Right Bulb Bulb PSV 47 cm/s Bulb EDV 12 cm/s Right ECA Prox ECA Prox PSV 40.5 cm/s ECA Prox EDV 0 cm/s Right ICA Mid ICA Mid PSV 35.3 cm/s ICA Mid EDV 10.3 cm/s Right ICA Prox ICA Prox PSV 38.1 cm/s ICA Prox EDV 9.78 cm/s Right Vertebral Vertebral PSV 42.7 cm/s Vert ebral EDV 9.84 cm/s Right SCA Prox SCA Prox PSV 88.2 cm/s SCA Prox EDV 0 cm/s Left CCA Dist CCA Dist PSV 48.5 cm/s CCA Dist EDV 9.95 cm/s Left CCA Mid CCA Mid PSV 60.9 cm/s CCA Mid EDV 11.2 cm/s Left CCA Prox CCA Prox PSV 74.3 cm/s CCA Prox EDV 12.4 cm/s Left Bulb Bulb PSV 43.5 cm/s Bulb EDV 11.2 cm/s Left ECA Prox ECA Prox PSV 39.8 cm/s ECA Prox EDV 0 cm/s Left ICA Dist ICA Dist PSV 76.1 cm/s ICA Dist EDV 21.7 cm/s Left ICA Mid ICA Mid PSV 64.5 cm/s ICA Mid EDV 15.9 cm/s Left ICA Prox ICA Prox PSV 51 cm/s ICA Prox EDV 11.2 cm/s Left Vertebral Vertebral PSV 33.8 cm/s Vert ebral EDV 7.24 cm/s Right ICA/CCA Ratio ICA/CCA PSV 0.711 Left ICA/CCA Ratio ICA/CCA PSV 0.837 Right ICA Dist ICA Dist PSV 47 cm/s ICA Dist EDV 16 cm/s Left SCA Prox SCA Prox PSV 116 cm/s SCA Prox EDV 0 cm/s Signed 08/02/2018 11:21 AM Cynthia Grubbs MD Performing Organization Address City/State/Zipcode Phone Number [facility] [address] [place] [address] Echocardiogram complete w contrast and 3D if needed (07/24/2018 5:22 PM CDT) Specimen Narrative Performed At [facility] Echo cardiography Report Pat.Name: KAYLYNN JOSEPH.ID: [id number] .Date: 07/24/2018 Refer.MD: CYNTHIA GRUBBS MD Exam Time: 2:18:00 PM Study Type:R outine Echo Height: 64in Weight: 176lb BSA: 1.85 m2 Ag e: 1940,78Y Sex: FEMALE BP: 169/77 HR: 56 bpm Sonogrphr: PADMINI Ni FASE Pat. Stat.:Outpatient Room: [place] Study Status:Final Echo Event ID:[id number] Order ID: [id number] Reason for Study:SOB, suspected cardiac etiology Procedures:2D Echo, Colorflow Doppler Race: B SUMMARY: LV EF is normal. There are inferior wa ll motion abnormalities (see diagram). RV systolic function is normal. FINDINGS: LV: LV size is normal. LV EF is normal. Estimated EF is 60-64%. RV: RV size is normal. RV systo lic function is normal. RV wall motion is normal. LA: LA size is normal. RA: RA size is normal. AO: Aortic root diameter is nor mal. DARBY: No pericardial effusion. AV: No structural AV abnormalit ies noted. MV: No structural MV abnormalit ies noted. A trace of mitral regurgitation. PV: No structural PV abnormalit ies noted. A trace of pulmonic regurgitation. TV: No structural TV abnormalit ies noted. Blevins: LV relaxation is reduced, ap propriate for age. LV filling pressure is normal. Other: Insufficient TR jet to estim ate PA systolic pressure. MEASUREMENTS: 2D Parasternal Long Rumson LVOT 1.9 cm LA Ds 3 cm LVIDd 4.2 cm Index 2.3 cm/m Ao Rtd 2.8 cm Index 1.5 cm/m LVIDs 2.7 cm LV Mas s 147 g (87-129) LV%fs 36 % LVM In dex 79.5 g/m2 IVSd 1.2 cm RWT 0.4 LVPWd 0.9 cm LA Sng Plane LA Area 18.3 cm2 (8.8-23.4) LA Vol 51.3 ml Index 27.7 ml/m LA LngAx 5.6 cm WALL MOTION: RESTING WALL MOTION: Basal Inferior wall is akinetic. Mid I nferior wall is hypokinetic. Normal in all other tamayo. Wall Index = 1.2 Signed 07/25/2018 06:59 PM Christy Fitzgerald M.D. Procedure Note Interface, Radiology Results In - 2018 7:00 PM CDT [facility] Echocardiography Report Pat.Name: KAYLYNN JOSEPH D: [id number] .Date: 07/24/2018 Refer .MD: CYNTHIA GRUBBS MD Exam Time: 2:18:00 PM Study Type:Routine Echo Height: 64in Weigh t: 176lb BSA: 1.85 m2 Age: 5 1940,78Y Sex: FEMALE BP: 169/77 HR: 56 bpm Sonogrphr: PADMINI Ni FASE Pat. Stat.:Outpatient Room: [place] Study Status:Final Echo Event ID:[id number] Order ID: [id number] Reason for Study:SOB, suspected cardiac etiology Procedures:2D Echo, Colorflow Doppler Race: B SUMMARY: LV EF is normal. There are inferior wal l motion abnormalities (see diagram). RV systolic function is normal. FINDINGS: LV: LV size is normal. LV EF is no rmal. Estimated EF is 60-64%. RV: RV size is normal. RV systolic function is normal. RV wall motion is normal. LA: LA size is normal. RA: RA size is normal. AO: Aortic root diameter is normal . DARBY: No pericardial effusion. AV: No structural AV abnormalities noted. MV: No structural MV abnormalities noted. A trace of mitral regurgitation. PV: No structural PV abnormalities noted. A trace of pulmonic regurgitation. TV: No structural TV abnormalities noted. Blevins: LV relaxation is reduced, appr opriate for age. LV filling pressure is normal. Other: Insufficient TR jet to estimat e PA systolic pressure. MEASUREMENTS: 2D Parasternal Long Rumson LVOT 1.9 cm LA D s 3 cm LVIDd 4.2 cm Inde x 2.3 cm/m Ao Rtd 2.8 cm Index 1.5 cm/m LVIDs 2.7 cm LV M ass 147 g (87-129) LV%fs 36 % LVM Index 79.5 g/m2 IVSd 1.2 cm RWT 0.4 LVPWd 0.9 cm LA Sng Plane LA Area 18.3 cm2 (8.8-23.4) LA Vol 51.3 ml Index 27.7 ml/m LA LngAx 5.6 cm WALL MOTION: RESTING WALL MOTION: Basal Inferior wall is akinetic. Mid In ferior wall is hypokinetic. Normal in all other tamayo. Wall Index = 1.2 Signed 07/25/2018 06:59 PM Christy Fitzgerald M.D. 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
--- OUTSIDE RECORDS SUMMARY | 2019-07-21 20:07 | XMS REPORT ---
:1940 Author Organization e[employer] Care Team Providers Name Role Phone Erik Joy Provider Role Unavailable Allergies, Adverse Reactions, Alerts Substance Reaction Event Type codeine Info Not Available Drug Allergy Sulfa Info Not Available Drug Allergy Problems Problem Type Condition Code Onset Dates Condition Statu s Assessment Nontraumatic tear of left rotator M75.102 Active cuff, unspecified tear extent Assessment Bicipital tendinitis of left M75.22 Active shoulder Assessment Pain in left shoulder M25.512 Active Problem Coronary artery disease involving I25.10 Active gambell coronary artery of gambell heart without angina pectoris Problem Status post coronary artery stent Z95.5 Active placement Problem History of breast cancer Z85.3 Act caitlyn Problem Hyperlipidemia, unspecified E78.5 Active hyperlipidemia type Problem Uncontrolled type 2 diabetes E11.65 Active mellitus without complication, without long-term current use of insulin Problem Hypertension, unspecified type I10 Active Problem Tear of left supraspinatus tendon M75.100 Active Problem Essential hypertension I10 Activ e Problem 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 tive infarction) Problem Sprain of left rotator cuff S43.422A Active capsule, initial encounter Problem Impingement syndrome of right M75.41 Active shoulder Problem Impingement syndrome of left M75.42 Active shoulder Problem BMI 31.0-31.9,adult Z68.31 Active Problem Peripheral edema R60.9 Active Problem Hypertension I10 Active Problem Type 2 diabetes E11.9 Active Problem Cataract, unspecified cataract H26.9 Active type, unspecified laterality Problem Low back pain M54.5 Active Problem Pain in right shoulder M25.511 Activ e Problem Pain in left shoulder M25.512 Active Problem Tear of left supraspinatus tendon, S46.812A Active initial encounter Problem Primary osteoarthritis, 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 79727353331 40 MG Orally Active 1 tablet in Calcium Once a day evening Clopidogrel [facility] 66708030016 75 MG Orally Active 1 t ablet Bisulfate Once a day Neomycin-Polymyx [facility] 99285351615 1 % Otic Three Oct 19, Act caitlyn 4 drops in-HC times a day 2018 into affected ears Metformin HCl [facility] 15744744168 500 MG Orally Active 1 tablet Twice a day with meals Isosorbide [facility] 20485662339 30 MG Orally Active 1 ta blet in Mononitrate ER Once a day the mo rning Aspirin [address] [facility] 40019393455 81 MG Orally Active 1 ta blet Once a day Metoprolol [facility] 87997828157 50 MG Orally Active 1 ta blet Tartrate Twice a day Amlodipine [facility] 94974172481 10 MG Orally Active 1 ta blet Besylate Once a day Results No Known Results Summary Purpose [employer]ClinicalWorks Submission
--- OUTSIDE RECORDS SUMMARY | 2019-07-21 20:07 | XMS REPORT | Continuity of Care Document ---
:1940 Author Organization [facility] t Address [address] [place] [address] Care Team Providers Name Role Phone Roger MONTGOMERY Primary Care Physician Cindy ONEAL Attending Clinician Unavailable Fadumo Neri MD Attending Clinician Joan CHIU Attending Clinician Unavailable Nakita ONEAL Attending Clinician Unavailable Radha ONEAL Attending Clinician Unavailable Payers Payer Name Policy Type Policy Effective Expiration Source Number Date Date CIGNA xxxxxxxx 2018 [place] [employer] 00:00:00 [facility] ADVxxxxxxxx2018-Pr esentHMO Problems Condition Condition Condition Status Onset Resolution Last Treating Co mments Source Name Details Category Date Date Treatment Clinician Date Chest Chest Disease Active [place] pressure pressure 7-30 Method i 00:00: st 00 Stented Stented Disease Active [place] coronary coronary 7-30 Method i artery artery 00:00: st 00 Abnormal Abnormal Disease Active [place] stress stress 6-25 Methodi test test 00:00: st 00 Coronary Coronary Disease Active Overview: [place] artery artery 6-25 Added Methodi disease disease 00:00: automatic st involving involving 00 ally from [place] request heart with heart with for angina angina surgery pectoris pectoris [id number] SOB SOB Disease Active [place] (shortness (shortness 6-04 Me thodi of breath) of breath) 00:00: st 00 Bilateral Bilateral Disease Active Kalyn ston carotid carotid 6-04 Methodi bruits bruits 00:00: st 00 Encounter Encounter Disease Active Kalyn ston to to 05-28 Methodi establish establish 00:00: st care care 00 Coronary Coronary Disease Active [place] artery artery 05-28 Methodi disease disease 00:00: st involving involving 00 [place] coronary coronary artery of artery of [place] heart heart without without angina angina pectoris pectoris TIA TIA Disease Active [place] (transient (transient 16 Nm thodi ischemic ischemic 00:00: st attack) attack) 00 History of History of Diagnosis Active [facility] breast breast [facility] Hyperlipid Hyperlipid Diagnosis Active [facility] emia, emia, [facility] - unspecifie unspecifie Me moria d d l hyperlipid hyperlipid Ou tpati emia type emia type ent Clinics Tear of Tear of Problem Active [facility] left left [facility] - supraspina supraspina Me moria tus tendon tus tendon l Outpati ent Clinics 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 2 Luke s - diabetes diabetes Memori a mellitus mellitus l without without Outpati complicati complicati en t on, on, Clinics without without long-term long-term current current use of use of insulin insulin Elevated Elevated Problem Active [facility] serum serum [facility] - creatinine creatinine Me moria l Outpati ent Clinics 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[facility] - (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 Ou tpati ) ) ent Clinics Hypertensi Hypertensi Problem Active [facility] on [facility] Elevated Elevated Problem Active [facility] alkaline alkaline [facility] - phosphatas phosphatas Me moria e level e level l Outpati ent Clinics Microalbum Microalbum Problem Active [facility] inuria inuria [facility]ics Hypokalemi Hypokalemi Problem Active [facility] Primary Primary Problem Active [facility] osteoarthr osteoarthr [place] - itis, left itis, left Me moria shoulder shoulder l Outpati ent Clinics Pain in Pain in Problem Active [facility] right right [facility] - shoulder shoulder Memori a l Outpati ent Clinics Tear of Tear of Problem Active [facility] left left [facility] - supraspina supraspina Me moria tus tus l tendon, tendon, Outpati initial initial ent encounter encounter Clin ics Impingemen Impingemen Problem Active [facility] t syndrome t syndrome [place] - of left of left Memoria shoulder shoulder l Outpati ent Clinics Sprain of Sprain of Problem Active [facility] left left [facility] - rotator rotator Memoria cuff cuff l capsule, capsule, Outpat i initial initial ent encounter encounter Clin ics Pain in Pain in Problem Active [facility] left left [facility] - shoulder shoulder Memori a l Outpati ent Clinics Impingemen Impingemen Problem Active [facility] t syndrome t syndrome [place]da kes - of right of right Memori a shoulder shoulder l Outpati ent Clinics Low back Low back Problem Active [facility] pain pain [facility] Type 2 Type [address] [facility] diabetes diabetes [facility] Other Other Problem Active [facility] chronic chronic [facility] pain pain [facility] Dysphagia, Dysphagia, Problem Active [facility] unspecifie unspecifie [place] - d type d type Memoria l Outpati ent Clinics Bilateral Bilateral Problem Active [facility] hearing hearing [facility] - loss, loss, Memoria unspecifie unspecifie l d hearing d hearing Outp ati loss type loss type ent Clinics BMI BMI Problem Active [facility] 31.0-31.9, 31.0-31.9, [place] - adult adult [facility] l Outpati ent Clinics Peripheral Peripheral Diagnosis Active [facility] edema edema [facility] Coronary Coronary Problem Active [facility] artery artery [facility] - disease disease Memoria involving involving l [place] Outpati coronary coronary ent artery of artery of Clin ics [place] heart heart without without angina angina pectoris pectoris Status Status Problem Active [facility] post post [facility] - coronary coronary Memori a artery artery l stent stent Outpati placement placement ent Clinics Cataract, Cataract, Problem Active [facility] unspecifie unspecifie [place] - d cataract d cataract Me moria type, type, l unspecifie unspecifie Ou tpati d d ent laterality laterality Cl inics Encopresis Encopresis Problem Active [facility] Allergies, Adverse Reactions, Alerts Allergy Allergy Status Severity Reaction(s) Onset Inactive Treating Comm ents Source Name Type Date Date Clinician Sulfa Propensi Active Other (See 2019-0 Severe [place] (Sulfona ty to Comments) 7-10 dry mouth Me thodi mide adverse 00:00: st Antibiot reaction 00 ics) s to drug Codeine Propensi Active Itching Severe [place] ty to 4-16 itching Methodi adverse 00:00: st reaction 00 s to drug codeine Adverse Active Info Not [facility] Reaction Available [facility] Sulfa Adverse Active Info Not [facility] Reaction Available [facility] Social History Social Habit Start Date Stop Date Quantity Comments Source Sex Assigned At [facility] ethodist Alcohol intake 2018-11-26 2018-11-26 Ex-drinker [facility] thodist 00:00:00 00:00:00 (finding) Smoking Status Start Date Stop Date Source Never smoker [place] Methodis t Medications Ordered Filled Start Stop Current Ordering Indication Dosage Frequency Signature Comments Components Source Medication Medication Date Date Medication? Clinician (SIG) Name Name isosorbide 2020- No Coronary 30mg QD Take 1 [place] mononitrate 02-2715 artery tablet (30 Methodi (IMDUR) 30 00:00: 23:59 disease mg total) st MG 24 hr 00 :00 involving by mouth tablet [place] every coronary morning. artery of [place] heart without angina pectoris aspirin 2018-02 Yes 81mg QD Take 81 mg [place] (ECOTRIN) 0-15 by mouth Method i 81 MG 10:43: daily. st enteric 05 coated tablet amLODIPine 2018-02 Yes 10mg QD Take 10 mg [place] (NORVASC) 0-15 by mouth Method i 10 mg 10:43: daily. st tablet 05 multivit/fo 2018-02 Yes 1{tbl} QD Take 1 [place] lic 0-15 tablet by Methodi acid/vit K1 10:43: mouth st (ONE-A-DAY 05 daily. WOMEN'S 50 PLUS ORAL) furosemide Yes as needed. [place] (LASIX) 20 8-05 Methodi mg tablet 00:00: st 00 potassium 2018- Yes as needed. [place] chloride 20 8-05 Methodi mEq tablet 00:00: st extended 00 release nitroglycer 2019- No .4mg Place 0.4 [place] in 09-10 07-30 mg under Methodi (NITROSTAT) 11:18: 00:[address] 0.4 MG SL 16 :00 every 5 tablet (five) minutes as needed for chest pain. nitroglycer Yes Coronary .4mg Place 1 [place] in 7-30 artery tablet Methodi (NITROSTAT) 00:00: disease (0.[address] 0.4 MG SL 00 involving total) tablet [place] under the coronary tongue artery of every 5 [place] (five) heart minutes as without needed for angina chest pectoris pain. isosorbide 2019- No Coronary 30mg QD Take 1 [place] mononitrate 7-30 01-16 artery tablet (30 Methodi (IMDUR) 30 00:00: 00:00 disease mg total) st MG 24 hr 00 :00 involving by mouth tablet [place] every coronary morning. artery of [place] heart without angina pectoris metFORMIN Yes 500mg Q.5D Take 1 [place] (GLUCOPHAGE 7-14 tablet Method i ) 500 mg 00:00: ([address] tablet 00 total) by mouth 2 (two) times a day with meals. Hold metformin for 48 hours.Rest art at 08/25/2018 metFORMIN 2019- No 500mg Q.5D Take 500 [place] (GLUCOPHAGE 7-12 07-12 mg by Method i ) 500 mg 09:23: 00:[address] tablet 19 :00 (two) times a day with meals. clopidogrel Yes Coronary 75mg QD Take 1 [place] (PLAVIX) 75 4-16 artery tablet (75 Methodi mg tablet 00:00: disease mg total) st 00 involving by mouth [place] daily. coronary artery of [place] heart without angina pectoris metFORMIN 2019- No TK 1 T PO [place] (GLUCOPHAGE 3-28 07-10 WITH MEALS Orlando pinto ) 500 mg 00:00: 00:[address] tablet 00 :00 rosuvastati Yes 40mg QD Take 40 mg [place] n (CRESTOR) 3-27 by mouth Meth thom 40 MG 00:00: nightly. st tablet 00 metoprolol Yes 50mg Q.5D 50 mg 2 [place] tartrate 3-08 (two) Methodi (LOPRESSOR) 00:00: times a st 50 mg 00 day. tablet amLODIPine 2018- No TK 1 T PO [place] (NORVASC) 2-25 07-10 D Methodi 10 mg 00:00: 00:00 st tablet 00 :00 Neomycin-Po Neomycin-Po 2018-0 Yes Felicita [address] [facility] lymyxin-HC lymyxin-HC 10-19 [place] into [facility] - 00:00: affected Memoria 00 ears l [facility] Metformin Metformin Yes Felicita [address] [facility] HCl HCl [place] with meals [facility] Metoprolol Metoprolol Yes Felicita [address] Tartrate Tartrate [place] [facility] Amlodipine Amlodipine Yes Felicita [address] Besylate Besylate [place] [facility] Clopidogrel Clopidogrel Yes Felicita [address] Bisulfate Bisulfate [place] [facility] Rosuvastati Rosuvastati Yes Felicita [address] n Calcium n Calcium [place] in evening [facility] Isosorbide Isosorbide Yes Felicita [address] Mononitrate Mononitrate [place] in the [facility] - ER ER morning Memoria l [facility] ent [facility] Aspirin 81 Aspirin 81 Yes Felicita [address] [place] [facility] Furosemide Furosemide Yes Felicita [address] [place] as needed [facility] - for leg Memoria swelling l (take with [facility] potassium ent kathleen) Clinics Nitroglycer Nitroglycer Yes Felicita as [facility] in in [place] directed [facility] Immunizations Ordered Filled Immunization Date Status Comments [facility] e Immunization Name Name FLUZONE HIGH DOSE FLUZONE HIGH DOSE 2018-11-[address] [facility] - OVER 65 OVER 65 00:00:00 [facility] Vital Signs Vital Name Observation Time Observation Value Comments Source Systolic blood 2018-11-26 10:45:00 139 mm[Hg] Stephie louis [place] pressure Diastolic blood 2018-11-26 10:45:00 69 mm[Hg] [place] pressure Heart rate 2018-11-26 10:45:00 59 /min Danilo Manzo Body height 2018-11-26 10:45:00 162.6 cm Danilo Manzo Body weight 2018-11-26 10:45:00 80.74 kg Danilo Manzo BMI 2018-11-26 10:45:00 30.55 kg/m2 Danilo Manzo Respiratory rate 2018-08-23 09:30:00 56 /min Laith Manzo Oxygen saturation in 2018-08-23 08:55:00 97 /min Danilo Manzo Arterial blood by Pulse oximetry Body temperature 2018-08-23 07:00:00 36.67 Stephanie Laith Manzo Procedures Procedure Date / Time Performing Clinician Source Performed ECG 12-LEAD 2018-09-10 09:41:32 Sonido Neri HC COMPLETE BLD COUNT 2018-08-23 04:30:00 Hugo Mari W/AUTO DIFF ECG 12-LEAD 2018-08-23 04:16:46 Sonido Neri BASIC METABOLIC PANEL 2018-08-23 04:00:00 Hugo Mari ESTIMATED GFR 2018-08-23 04:00:00 Sonido Neri oddebora ACTIVATED CLOTTING TIME 2018-08-22 13:08:00 Sonido Neri [place] ACTIVATED CLOTTING TIME 2018-08-22 12:26:00 Sonido Neri [place] ACTIVATED CLOTTING TIME 2018-08-22 11:18:00 Sonido Neri CONSULT CARDIAC REHAB 2018-08-22 11:02:22 Hugo Mari PHASE 1 ECG PRE/POST OP 2018-08-22 10:58:37 Hugo Mari CV SELECTIVE CORONARY 2018-08-22 10:20:58 Hugo Mari ANGIOGRAPHY ACTIVATED CLOTTING TIME 2018-08-22 10:08:00 Sonido Neri [place]ze ACTIVATED CLOTTING TIME 2018-08-22 10:02:00 Sonido Neri [place]ze ACTIVATED CLOTTING TIME 2018-08-22 09:50:00 Sonido Neri Druze ACTIVATED CLOTTING TIME 2018-08-22 09:44:00 Sonido Neri Druze ACTIVATED CLOTTING TIME 2018-08-22 09:31:00 Sonido Neri [place]ze ACTIVATED CLOTTING TIME 2018-08-22 09:25:00 Sonido Neri Druze ACTIVATED CLOTTING TIME 2018-08-22 09:19:00 Sonido Neri Druze ACTIVATED CLOTTING TIME 2018-08-22 09:13:00 Sonido Neri [place]ze ACTIVATED CLOTTING TIME 2018-08-22 09:00:00 Sonido Neri Druze ACTIVATED CLOTTING TIME 2018-08-22 08:54:00 Sonido Neri Druze ACTIVATED CLOTTING TIME 2018-08-22 08:47:00 Sonido Neri Druze ACTIVATED CLOTTING TIME 2018-08-22 08:40:00 Sonido Neri [place]ze ACTIVATED CLOTTING TIME 2018-08-22 08:34:00 Sonido Neri [place]ze ACTIVATED CLOTTING TIME 2018-08-22 08:28:00 Sonido Neri Druze ACTIVATED CLOTTING TIME 2018-08-22 08:27:00 Sonido Neri Druze ACTIVATED CLOTTING TIME 2018-08-22 08:21:00 Sonido Neri [place] POC GLUCOSE 2018-08-22 06:07:00 Sonido Neri Meth odist ECG 12-LEAD 2018-08-22 05:57:59 Sonido Neri Meth odist PROTHROMBIN TIME WITH INR 2018-08-12 10:03:00 Sonido Neri [place] PARTIAL THROMBOPLASTIN 2018-08-12 10:03:00 Sonido Neri on [place]ze TIME (PTT) COMPREHENSIVE METABOLIC 2018-08-12 10:03:00 Sonido Neri [place] PANEL CBC WITH PLATELET AND 2018-08-12 10:03:00 Sonido Neri n [place] DIFFERENTIAL COPY(IES) SENT TO: 2018-08-12 10:03:00 Sonido Neri M ethodist COPY RECEIVED FROM: 2018-08-12 10:03:00 Sonido Neri CV STRESS TEST NUCLEAR 2018-08-01 08:47:01 Sonido Neri on [place] CARDIO NM MYOCARDIAL PERFUSION 2018-08-01 08:47:01 Sonido Neri [place] REST STRESS 1 DAY US CAROTID DUPLEX 2018-07-30 08:51:52 Sonido Neri Me thodist BILATERAL TTE COMPLETE, WO CONTRAST, 2018-07-24 17:22:10 Sonido Neri Druze Lashawn ARMANDO ([id number]) Plan of Care Planned Activity Planned Date Details Comments Source Future Scheduled 2019-09-13 INFLUENZA VACCINE [place] [facility] Test 00:00:00 [code = INFLUENZA VACCINE] Future Scheduled 2007-07-05 65+ PNEUMOCOCCAL [place] [facility] Test 00:00:00 VACCINE (1 of 2 - PCV13) [code = 65+ PNEUMOCOCCAL VACCINE (1 of 2 - PCV13)] Future Scheduled 1992 SHINGLES VACCINES (#1) [place] [facility] Test 00:00:00 [code = SHINGLES VACCINES (#1)] Encounters Start End Encounter Admission Attending Care Care Encounter Source Date/Time Date/Time Type Type Clinicians Facility Department ID 2019-05-29 2019-05-29 [facility] [id number] [facility] 13:45:00 13:45:00 [facility] ent [facility] 2019-05-01 2019-05-01 [facility] [id number] [facility] 14:00[facility]00 14:00[facility]00 [facility] 2019-03-26 2019-03-26 [facility] [id number] 13:38:00 13:38:00 [facility] 2019-03-19 2019-03-19 [facility] [id number] 08:30:00 08:30:00 [facility] Clin[facility] 2019-02-21 2019-02-21 [facility] [id number] 09:28:00 09:28:00 [facility] ent Clinics 2019-01-02 2019-01-02 [facility] [id number] 14:03:00 14:03:00 [facility] ent [facility] 2018-12-19 2018-12-19 [facility] [id number] 08[facility]20:00 08:20:00 t [facility] 2018-11-13 2018-11-13 [facility] [id number] 23:10:00 23:10:00 t [facility] 2018-11-13 2018-11-13 [facility] [id number] 16:20:00 16:20:00 t [facility] Clin[facility] 2018-09-16 2018-09-16 [facility] [id number] 13:55:00 13:55:00 t [facility] Clin[facility] 2018-09-16 2018-09-16 [facility] [id number] 08:20:00 08:20:00 t [facility] Clin[facility] 2018-08-05 2018-08-05 [facility] [id number] 09:08:00 09:08:00 t [facility] ent Clinics 2018-06-12 2018-06-12 [facility] [id number] 11:49:00 11:49:00 [facility] ent Clinics 2018-06-12 2018-06-12 [facility] [id number] 08:30:00 08:30:00 [facility] ent Clinics 2018-06-04 2018-06-04 [facility] [id number] 09:24:00 09:24:00 [facility] 2018-05-31 2018-05-31 [facility] [id number] 10:16:00 10:16:00 [facility] 2018-05-27 2018-05-27 [facility] [id number] 10:00:00 10:00:00 [facility] 2018-05-21 2018-05-21 [facility] [id number] 15:00:00 15:00:00 [facility] 2018-04-08 2018-04-08 [facility] [id number] 08:30:00 08:30:00 [facility] Results Test Description Test Time Test Comments Results Result Comments Source ECG 12 lead 2018-09-10 19:43:40 Test Item Value Reference Range Interpretation Comme nts Ventricular rate (test code = 253) 54 Atrial rate (test code = 255) 54 NV interval (test code = 266) 180 QRSD interval (test code = 260) 90 QT interval (test code = 264) 456 QTC interval (test code = 265) 432 P axis 1 (test code = 267) 51 QRS axis 1 (test code = 268) -45 T wave axis (test code = 270) -62 EKG impression (test code = 273) Sinus bradycardia-Left axis deviat ion-Poor R Wave Progression-T wave abnormality, consider anterolateral ischemia-T wave abnormality, consider inferior ischemia-Abnormal ECG-In automated comparison with ECG of 23-AUG-2018 04:16,-Inverted T waves have replaced nonspecific T wave abnormality in Lateral leads- Danilo Figueroa Pre/Post Op (in AM)2018-08-23 19:01:49 Test Item Value Reference Range Interpretation Comments Ventricular rate (test 54 code = 253) Atrial rate (test code 54 = 255) NV interval (test code 190 = 266) QRSD interval (test 90 code = 260) QT interval (test code 468 = 264) QTC interval (test 443 code = 265) P axis 1 (test code = 25 267) QRS axis 1 (test code -45 = 268) T wave axis (test code -54 = 270) EKG impression (test Sinus bradycardia-Left code = 273) anterior fascicular block-Voltage criteria for left ventricular hypertrophy-Cannot rule out Inferior infarct (masked by fascicular block?) , age undetermined-T wave abnormality, consider anterolateral ischemia-Abnormal ECG- [place] [facility] with platelet and [id number] 05:27:36 Test Item Value Reference Range Interpretation Comments WBC (test code = 19012-5) 7.37 4.50- 11.00 k/uL RBC (test code = 57238-2) 3.73 m/uL 4.2-5.5 L HGB (test code = 718-7) 10.9 g/dL 12-16 L HCT (test code = 4544-3) 32.7 % 37-47 L MCV (test code = 787-2) 87.7 fL 82-100 MCH (test code = 785-6) 29.2 pg 27-34 MCHC (test code = 786-4) 33.3 g/dL 31-37 RDW - SD (test code = 45.7 fL 37-55 32858-7) MPV (test code = 78581-9) 11.3 fL 8.8-13.2 Platelet count (test code 205 150- 400 k/uL = 10826-8) Nucleated RBC (test code 0.00 /100 WBC = 38762-4) Neutrophils (test code = 59.4 % 39-69 01187-3) Lymphocytes (test code = 28.4 % 25-45 60310-0) Monocytes (test code = 10.0 % 0-10 08159-5) Eosinophils (test code = 1.5 % 0-5 81717-4) Basophils (test code = 0.4 % 0-1 27198-1) Immature granulocytes 0.3 % 0-1 "Immat ure (test code = 49211-8) granul ocytes" (promyelocytes, myelocytes, metamyelocytes) Lab Interpretation (test Abnormal code = 86042-2) [place] [facility] metabolic [id number] 05:18:49 Test Item Value Reference Range Interpretation Comments Sodium (test code = 2951-2) 143 135- 148 mEq/L Potassium (test code = 2823-3) 3.5 3.5- 5.0 mEq/L Chloride (test code = 2075-0) 109 98- 112 mEq/L CO2 (test code = 8-9) 24 24- 31 mEq/L Anion gap (test code = 49494-4) 10@ANIO 7- 15 mEq/L BUN (test code = 3094-0) 11 mg/dL 8-23 Creatinine (test code = 2160-0) 0.93 mg/dL 0.5-0.9 H Glucose (test code = 2345-7) 93 mg/dL 65-99 Calcium (test code = 62376-1) 8.9 mg/dL 8.8-10.2 Lab Interpretation (test code = Abnormal 02914-3) [place] MethodistEstimated [id number] 05:18:48 Test Item Value Reference Range Interpretation Comments Estimated GFR (test 69 mL/min/1.73 m2 [facility] Units code = 5488) InterpretationG 1 >=90 Normal or highG2 60-89 Mildly bpbrqxvjzL5a 45-59 Mildly to mode rately [id number] 30-44 Moderately to severely decreasedG4 15-29 Severely decre asedG5 <15 Kidn ey failureThe eGFR was calculated usin g the Chronic Kidney Disease Epidemiology Co llaboration (CKD-EPI) equat ion. Interpretation is based on recommendations of the National Kidney Foundation-Kidn ey Disease Outcomes Qualit y Initiative (NKF-KDOQI) pub lished in 2014. Danilo StoneristCv collaborative physician [id number] 19:05:17 Attending: Dr. Sonido Neri Interventional Fellow: Hugo Mari MD EQUIPMENT/ANTICOAGULATION: Rt PAPER CUP HANDLE MACHINE OPERATOR 7F initially AL 0.75 followed by AL 0.75 with sideholes, followed by JR4 guide, Lt PAPER CUP HANDLE MACHINE OPERATOR 6F diagnostic JL5, Lt CFV 4F venous sheathPilot 200, Cinthya 3, Fielder XT, Mohamud Blue coronary wire Anticoagulation: Heparin with ACT >250 sec prior to procedure PROCEDURAL DETAILS: The LMT was engaged with the JL5 diagnostic catheter for retrograde injections. The RCA was initially engaged with the AL 0.75 guide catheter. We decided to use the same guide catheter however with sideholes. We initially probed the proximal end of the AIR EXPORT OPERATIONS AGENT with a captain/airline pilot 200 over Corsair. We decided that the guide was not sitting as adequately as we had hoped. We thus switched our guide to a 7 Georgian FR4 Guide. We continued to probe the proximal AIR EXPORT OPERATIONS AGENT in the RCA with the Corsair and captain/airline pilot 200. We performed antegrade wire escalation with the captain/airline pilot 200, Cinthya 3, and Fielder XT coronary wires. Based on retrograde injections, wenoted that the AIR EXPORT OPERATIONS AGENT ended proximally to the bifurcation of the PDA and PL branches of the RCA. We eventually were able to reach luminal in the PDA with our wire and had good distal injection. We were concerned that our dissection plane did involve the bifurcation. We advanced our corsair to this bifurcation and ultimately switched out our wires for a Mohamud Blue coronary wire into the distal PDA. We then proceeded to dilate with a 1.5 x 15 mm balloon followed by 2.5 x 25 mm balloon. Following this, angiography revealed good distal blood flow with dissection planes present. At this time we gave intracoronary nitroglycerin. However post this angiography revealed that the PL branch had shut down. This is likely a result of the dissection plane propagating into this branch. We then decided to go ahead and start our stenting. We proceeded with a 3.0 x 38 mm Synergy drug-eluting stent in the distalto mid portion of the RCA just proximal to the bifurcation. We then landed a 3.5 x 38 mm stent slightly overlapping this previous stent and into the ostial RCA. We then postdilated the stents with a 3.5 m noncompliant balloon. Post angiography revealed good MIRANDA-3 flow in the distal RPDA and the afo rementioned PL branch that was now occluded. No significant EKG changes or chest pain during the procedure. The overall length of the AIR EXPORT OPERATIONS AGENT was approximately 70 mm. Limited echo without effusion. HEMOSTASIS: Proglide bifemoral access, manual hemostasis for the venous sheath ADDITIONAL POST-PROCEDURE MEDICATIONS: PLAN: 1. ASA 81mg daily2. Clopidogrel 75mg daily . 3. Cardiac medical therapy and aggressive risk factor modification. Cardiac rehabilitation. 4. [facility] [facility] clotting [id number] 14:30:33 Test Item Value Reference Range Interpretation Comments Activated clotting time 175 96- 152 sec H Mete r ID: (test code = 5298) [id number] perator: Pacvivian Sk[facility] Lab Interpretation (test Abnormal code = 71548-6) [facility] [id number] 06:08:31 Test Item Value Reference Range Interpretation Comments POC glucose (test code = 108 mg/dL 65-99 H [facility] Notified 40800-2) RNMeter ID: [id number] tor: Goodwin Lavinia hilario Lab Interpretation (test Abnormal code = 15259-4) [facility]Com[facility] [id number] 03:14:00 Test Item Value Reference Interpretation Comments Range Glucose (test code 88 mg/dL 65-139 N on-fasting = 2345-7) reference inter heather BUN, whole blood 12 mg/dL 7-25 (test code = 3094-0) Creatinine (test 1.19 mg/dL 0.6-0.93 H For patient s >49 code = 2160-0) years of age, the reference limit for Creatinine is approximately 1 3% higher for peopleidentifie d as -Kandice n. EGFR Non-Afr. 44 > OR = 60 L [place] (test code mL/min/1.73m2 = 2775) EGFR 51 > OR = 60 L [place] (test code mL/min/1.73m2 = 46789-8) BUN/creatinine 10 6- 22 (calc) ratio (test code = 3097-3) Sodium (test code = 144 mmol/L 309-799 8976-2) Potassium (test 3.9 mmol/L 3.5-5.3 code = 2823-3) Chloride (test code 107 mmol/L 98-110 = 2075-0) CO2 (test code = 27 mmol/L 20-32 2027-9) Calcium (test code 9.9 mg/dL 8.6-10.4 = 20086-8) Protein (test code 7.1 g/dL 6.1-8.1 = 2885-2) Albumin, S (test 4.3 g/dL 3.6-5.1 code = 1751-7) Globulin, total 2.8 1.9- 3.7 g/dL (test code = (calc) 48530-3) Albumin/globulin 1.5 1.0- 2.5 ratio (test code = (calc) 1759-0) Total bilirubin 0.4 mg/dL 0.2-1.2 (test code = 1975-2) Alkaline 120 U/L 33-130 phosphatase (test code = 6768-6) AST (test code = 17 U/L 10-35 1920-8) ALT (test code = 18 U/L 6-29 1742-6) ANGELO (test code = FASTING:NOFASTING ANGELO) : NO RAC (test code = Performing RAC) Organization Information: Site ID: [facility] Name: [facility] Address: [address] [place] [id number] Director: Sosa Mishra Lab Interpretation Abnormal (test code = 62363-3) [place] MethodistProthrombin time with [id number] 03:14:00 Test Item Value Reference Range Interpretation Comments INR (test code = 1.0 Reference R bladimir 6301-6) 0.9-1.1Moderate -i ntensity Warfar in Therapy 2.0-3.0Higher-i nt ensity Warfarin Therapy 3.0-4 .0 Prothrombin time 10.4 9.0- 11.5 sec For more (test code = information on 5902-2) this test, go to:[email or web address] ti [email or web address] [email or web address]/FAQ1 04 ANGELO (test code = FASTING:NOFASTING: ANGELO) NO RAC (test code = Performing RAC) Organization Information: Site ID: [facility] Name: [facility] Address: [address] [place] [id number] Director: Sosa Mishra [place] MethodistPartial thromboplastin time, [id number] 03:14:00 Test Item Value Reference Interpretation Comments Range PTT (test 25 22- 34 sec This test has not been code = [place] [address]-5) monitoringunfra ctionated heparin therapy . For testing thatis validate d for this type of therapy , please referto the Hep john paul Anti-Xa assay ([place] [address]). For additional info rmation, please refer [email or web address] ion.[email or web address]/faq/ DXW754(This link is being p rovided for informational/e ducational purposes only.) ANGELO (test FASTING:NOFASTING code = : NO ANGELO) RAC (test Performing code = Organization RAC) Information: Site ID: [facility] Name: [facility] Address: [address] [place] [id number] Director: Sosa [place]ras[place] MethodistCOPY RECEIVED FROM:2018-08-13 03:14:00Copy received from:Comment: ALEX [address] [facility] [address] [place] [address] QUESTFASTING:NOFASTING: Pau MethodistCOPY(IES) SENT TO:2018-08-13 03:13:00Copies/mLComment: ALEX [address]RER[address] [facility] [address] [place] [address] QUESTFASTING:NOFASTING: Pau Druze
--- OUTSIDE RECORDS SUMMARY | 2019-07-21 20:07 | XMS REPORT ---
:1940 [facility] Providers Name Role Phone Felicita Duran Provider Role Unavailable Allergies, Adverse Reactions, Alerts Substance Reaction Event Type codeine Info Not Available Drug Allergy Sulfa Info Not Available Drug Allergy Problems Problem Type Condition Code Onset Dates Condition Statu s Assessment Essential hypertension I10 Activ e Assessment Encopresis R15.9 Active Problem Coronary artery disease involving I25.10 Active [place] coronary artery of [place] heart without angina pectoris Problem Status post coronary artery stent Z95.5 Active placement Problem Hypertension, unspecified type I10 Active Problem History of breast cancer Z85.3 Act caitlyn Problem Hyperlipidemia, unspecified E78.5 Active hyperlipidemia type Problem Uncontrolled type 2 diabetes E11.65 Active mellitus without complication, without long-term current use of insulin Problem History of SC (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 Ac tive infarction) Problem Essential hypertension I10 Activ e Problem Sprain of left rotator cuff S43.422A Active capsule, initial encounter Problem Low back pain M54.5 Active Problem Impingement syndrome of left M75.42 Active shoulder Problem Pain in left shoulder M25.512 Active Problem Impingement syndrome of right M75.41 Active shoulder Problem Cataract, unspecified cataract H26.9 Active type, unspecified laterality Problem BMI 31.0-31.9,adult Z68.31 Active Problem Hyperlipidemia E78.5 Active Problem Hypertension I10 Active Problem Encopresis R15.9 Active Problem Type 2 diabetes E11.9 Active Problem Primary osteoarthritis, 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 Problem Pain in right shoulder M25.511 Activ e Problem Peripheral edema R60.9 Active Problem Tear of left supraspinatus tendon, S46.812A Active initial encounter Assessment History of SC (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 Ac tive infarction) Problem Other chronic pain G89.29 Active Assessment Peripheral edema R60.9 Active Problem Elevated alkaline phosphatase R74.8 Active level Assessment Uncontrolled type 2 diabetes E11.65 Active mellitus without complication, without long-term current use of insulin Problem Dysphagia, unspecified type R13.10 Active Assessment Elevated serum creatinine R79.89 Ac tive Problem Bilateral hearing loss, H91.93 Acti ve unspecified hearing loss type Assessment History of breast cancer Z85.3 Act caitlyn Problem Elevated serum creatinine R79.89 Ac tive Assessment Hyperlipidemia, unspecified E78.5 Active hyperlipidemia type Problem Tear of left supraspinatus tendon M75.100 Active Problem Microalbuminuria R80.9 Active Problem Hypokalemia E87.6 Active Medications Medication Code Code Instructions Start End Status Dosage System Date Date Furosemide [facility] 21021788450 20 MG Orally Active 1 ta blet as Once a day needed for leg swelling (take with potassium chloride) Metoprolol [facility] 31982007469 50 MG Orally Active 1 ta blet Tartrate Twice a day Metformin HCl [facility] 76082668785 500 MG Orally Active 1 tablet Twice a day with meals Rosuvastatin [facility] 38120145157 40 MG Orally Active 1 tablet in Calcium Once a day evening Nitroglycerin [facility] 52788181747 0.4 MG Active as dir ected Sublingual 1 tablet every 5 minutes as needed for chest pain x3 doses Amlodipine [facility] 45188690846 10 MG Orally Active 1 ta blet Besylate Once a day Aspirin 81 [facility] 07102659070 81 MG Orally Active 1 ta blet Once a day Clopidogrel [facility] 91200677792 75 MG Orally Active 1 t ablet Bisulfate Once a day Neomycin-Polymyx [facility] 81879471309 1 % Otic Three Oct 19, Act caitlyn 4 drops in-HC times a day 2017 into affected ears Isosorbide [facility] 09850602154 30 MG Orally Active 1 ta blet in Mononitrate ER Once a day the mo rning Results No Known Results Summary Purpose eClinicalWorks Submission
[2019-07-21] MEDS ORDERED: LIDOCAINE 1% MPF 5 ML VIAL ONE (22:17)
--- NOTE | 2019-07-21 22:56 | RAD REPORT ---
EXAM DESCRIPTION: RAD - Hand Right 3 View - 07/21/2019 10:39 pm CLINICAL HISTORY: Right hand pain status post injury FINDINGS: No fracture or dislocation is seen. Bones are osteoporotic. A radiopaque foreign body is not seen
--- NOTE | 2019-07-21 23:47 | ER ---
Nurse's Notes [facility] Name: Kaylynn Galindo Age: 79 yrs Sex: Female : 1940 Arrival Date: 07/21/2019 Time: 20:02 Bed 8 Private MD: Diagnosis: Right Hand laceration Presentation: 07/20 20:20 Chief complaint: Patient states: Was cutting watermelon when knife slipped through hand ca1 and cut heel of R hand. Coronavirus screen: Proceed with normal triage. Patient denies a cough. Patient denies shortness of breath or difficulty breathing. Patient denies measured and/or subjective temperature greater than 100.4F prior to today's visit. Patient denies travel on a cruise ship or to a country the [facility] currently lists as an affected area. Patient denies contact with known and/or suspected case of COVID-19. Ebola Screen: Patient negative for fever greater than or equal to 101.5 degrees Fahrenheit, and additional compatible Ebola Virus Disease symptoms Patient denies exposure to infectious person. Patient denies travel to an Ebola-affected area in the 21 days before illness onset. No symptoms or risks identified at this time. Initial Sepsis Screen: Does the patient meet any 2 criteria? No. Patient's initial sepsis screen is negative. Does the patient have a suspected source of infection? No. Patient's initial sepsis screen is negative. Risk Assessment: Do you want to hurt yourself or someone else? Patient reports no desire to harm self or others. Onset of symptoms was July 21, 2019. 20:20 Method Of Arrival: Ambulatory ca1 20:20 Acuity: ALEXUS 4 ca1 Historical: - Allergies: 20:22 Codeine; ca1 20:22 Sulfa (Sulfonamide Antibiotics); ca1 - Home Meds: 20:22 clopidogrel 75 mg oral tab 1 tab once daily [Active]; ca1 20:23 aspirin 81 mg Oral chew 1 tab once daily [Active]; ca1 - PMHx: 20:22 breast cancer; Diabetes - NIDDM; Hypertension; Mild [place]; ca1 - PSHx: 20:22 BRAIN; BACK SURGERY; RIGHT TIBIA; RIGHT BUNIONECTOMY; Hysterectomy; ca1 - Immunization history:: Adult Immunizations up to date, Last tetanus immunization: unknown. - Social history:: Smoking status: Patient denies any tobacco usage or history of. Screenin:30 Abuse screen: Denies threats or abuse. Denies injuries from another. Nutritional wh screening: No deficits noted. Tuberculosis screening: No symptoms or risk factors identified. Fall Risk None identified. Assessment: 21:15 General: Appears in no apparent distress. Behavior is calm, cooperative, appropriate wh for age. Pain: Denies pain. Neuro: Level of Consciousness is awake, alert, obeys commands, Oriented to person, place, time, situation, Appropriate for age. Cardiovascular: Capillary refill < 3 seconds. Respiratory: Airway is patent Respiratory effort is even, unlabored, Respiratory pattern is regular, symmetrical. GI: Abdomen is flat, non-distended. : No signs and/or symptoms were reported regarding the genitourinary system. EENT: No signs and/or symptoms were reported regarding the EENT system. Derm: Skin is intact, is healthy with good turgor, Skin is pink, warm \T\ dry. normal. Musculoskeletal: Circulation, motion, and sensation intact. Injury Description: Laceration sustained to heel of right hand is clean, was sustained 1-2 hours ago. a small amount of bleeding noted at this time. 22:25 Reassessment: Patient appears in no apparent distress at this time. No changes from previously documented assessment. Patient and/or family updated on plan of care and expected duration. Pain level reassessed. Patient is alert, oriented x 3, equal unlabored respirations, skin warm/dry/pink. 23:55 Reassessment: Patient appears in no apparent distress at this time. No changes from previously documented assessment. Patient and/or family updated on plan of care and expected duration. Pain level reassessed. Patient is alert, oriented x 3, equal unlabored respirations, skin warm/dry/pink. Vital Signs: 20:20 BP 165 / 85; Pulse 73; Resp 15 S; Temp 97.2(TE); Pulse Ox 100% on R/A; Weight 82.55 kg ca1 (R); Height 5 ft. 4 in. (162.56 cm) (R); Pain 0/10; 21:00 BP 158 / 88; Pulse 66; Resp 18; Pulse Ox 100% on R/A; wh 22:00 BP 162 / 91; Pulse 66; Resp 18; Pulse Ox 100% on R/A; wh 23:30 BP 159 / 93; Pulse 65; Resp 18; Pulse Ox 100% on R/A; wh 20:20 Body Mass Index 31.24 (82.55 kg, 162.56 cm) ca1 ED Course: 20:02 Patient arrived in ED. ds1 20:21 Triage completed. ca1 20:23 Arm band placed on right wrist. ca1 21:03 Beau Munoz is Primary Nurse. wh 21:30 Patient has correct armband on for positive identification. Bed in low position. Call light in reach. Side rails up X 1. Pulse ox on. NIBP on. 21:44 Red Carreon MD is Attending Physician. [facility] 22:39 XRAY Hand RIGHT 3 View In Process Unspecified. EDMS 23:00 Assist provider with laceration repair on heel of right hand that was between 2.6 to 7.5 cm using sutures. Set up tray. Performed by Rde Carreon MD Dressed with 4X4s, Kerlix, Patient tolerated well. Patient did not have IV access during this emergency room visit. Administered Medications: 23:53 Drug: Tetanus-Diphtheria Toxoid Adult 0.5 ml {Thermodynamics Engineer: [employer]. Exp: rr5 03/28/2021. Lot #: [id number]. } Route: IM; Site: right deltoid; 07/21 00:08 Follow up: Response: No adverse reaction Outcome: 07/20 23:46 Discharge ordered by . [facility] 07/21 00:07 Discharged to home ambulatory. Condition: stable Discharge instructions given to patient, Instructed on discharge instructions, follow up and referral plans. medication usage, wound care, Demonstrated understanding of instructions, follow-up care, medications, wound care, Prescriptions given X 1. 00:09 Patient left the ED. Signatures: Dispatcher [employer] [facility] VillalpandoKristi hennessy ds1 Beau Munoz Gordo Robertson RN RN rr5 Sharon Varela RN RN ca1 Red Carreon MD MD [facility]
--- NOTE | 2019-07-21 23:47 | EDPHYS ---
Physician Documentation [facility] Name: Kaylynn Galindo Age: 79 yrs Sex: Female : 1940 Arrival Date: 07/21/2019 Time: 20:02 Bed 8 Private MD: ED Physician Red Carreon HPI: 07/20 23:44 This 79 yrs old Black Female presents to ER via Ambulatory with complaints of Stab mh7 Wound - Hand, Laceration To Hand. 07/21 02:26 The patient or guardian reports a laceration, clean, 3 cm(s). The complaints affect the mh7 right hand palm. Context: The problem was sustained at home, resulted from a penetrating injury, by a knife, while cutting food. Onset: The symptoms/episode began/occurred just prior to arrival, today. Modifying factors: The symptoms are alleviated by nothing, the symptoms are aggravated by nothing. Associated signs and symptoms: Pertinent negatives: cyanosis distally, decreased sensation distally, fever, nausea, numbness distally, tingling distally, vomiting. Severity of symptoms: At their worst the symptoms were mild, just prior to arrival, earlier today, in the emergency department the symptoms are unchanged. Historical: - Allergies: 07/20 20:22 Codeine; ca1 20:22 Sulfa (Sulfonamide Antibiotics); ca1 - Home Meds: 20:22 clopidogrel 75 mg oral tab 1 tab once daily [Active]; ca1 20:23 aspirin 81 mg Oral chew 1 tab once daily [Active]; ca1 - PMHx: 20:22 breast cancer; Diabetes - NIDDM; Hypertension; Mild [place]; ca1 - PSHx: 20:22 BRAIN; BACK SURGERY; RIGHT TIBIA; RIGHT BUNIONECTOMY; Hysterectomy; ca1 - Immunization history:: Adult Immunizations up to date, Last tetanus immunization: unknown. - Social history:: Smoking status: Patient denies any tobacco usage or history of. ROS: 07/21 02:26 Constitutional: Negative for fever, chills, and weight loss, Eyes: Negative for injury, mh7 pain, redness, and discharge, ENT: Negative for injury, pain, and discharge, Neck: Negative for injury, pain, and swelling, Cardiovascular: Negative for chest pain, palpitations, and edema, Respiratory: Negative for shortness of breath, cough, wheezing, and pleuritic chest pain, Abdomen/GI: Negative for abdominal pain, nausea, vomiting, diarrhea, and constipation, Back: Negative for injury and pain, : Negative for injury, bleeding, discharge, and swelling, Neuro: Negative for headache, weakness, numbness, tingling, and seizure, Psych: Negative for depression, anxiety, suicide ideation, homicidal ideation, and hallucinations, Allergy/Immunology: Negative for hives, rash, and allergies, Endocrine: Negative for neck swelling, polydipsia, polyuria, polyphagia, and marked weight changes, Hematologic/Lymphatic: Negative for swollen nodes, abnormal bleeding, and unusual bruising. Exam: 02:26 Constitutional: This is a well developed, well nourished patient who is awake, alert, mh7 and in no acute distress. Head/Face: Normocephalic, atraumatic. Chest/axilla: Normal chest wall appearance and motion. Nontender with no deformity. No lesions are appreciated. Cardiovascular: Regular rate and rhythm with a normal S1 and S2. No gallops, murmurs, or rubs. Normal PMI, no JVD. No pulse deficits. Respiratory: Lungs have equal breath sounds bilaterally, clear to auscultation and percussion. No rales, rhonchi or wheezes noted. No increased work of breathing, no retractions or nasal flaring. Abdomen/GI: Soft, non-tender, with normal bowel sounds. No distension or tympany. No guarding or rebound. No evidence of tenderness throughout. 02:26 Neuro: Awake and alert, GCS 15, oriented to person, place, time, and situation. Cranial nerves II-XII grossly intact. Motor strength 5/5 in all extremities. Sensory grossly intact. Cerebellar exam normal. Normal gait. Psych: Awake, alert, with orientation to person, place and time. Behavior, mood, and affect are within normal limits. 02:26 Musculoskeletal/extremity: Extremities: noted in the palm of right hand: laceration, ROM: intact in all extremities, Circulation is intact in all extremities. Pulses: are normal with no appreciated deficits, Perfusion: the patient is normally perfused throughout, Perfusion: the extremity is normally perfused throughout, Sensation intact. Compartment Syndrome exam of affected extremity: is normal. no numbness, no tingling, no sensation deficit, no palor, no weak pulses, Joints: All joints appear normal with full range of motion. Weight bearing: able to fully bear weight, without difficulty, Tendon exam: specific tendon testing normal through active and passive range of motion 02:26 Skin: injury, laceration(s), the wound is approximately 3 cm(s), with a depth of 0.5 cm(s), of the palm of right hand. Vital Signs: 07/20 20:20 BP 165 / 85; Pulse 73; Resp 15 S; Temp 97.2(TE); Pulse Ox 100% on R/A; Weight 82.55 kg ca1 (R); Height 5 ft. 4 in. (162.56 cm) (R); Pain 0/10; 21:00 BP 158 / 88; Pulse 66; Resp 18; Pulse Ox 100% on R/A; wh 22:00 BP 162 / 91; Pulse 66; Resp 18; Pulse Ox 100% on R/A; wh 23:30 BP 159 / 93; Pulse 65; Resp 18; Pulse Ox 100% on R/A; wh 20:20 Body Mass Index 31.24 (82.55 kg, 162.56 cm) ca1 Laceration: 23:48 Wound Repair of 3cm ( 1.2in ) subcutaneous laceration to right hand. Linear shaped.. 7 Distal neuro/vascular/tendon intact. Anesthesia: Wound infiltrated with 5 mls of 1% lidocaine. Wound prep: Extensive cleansing by nurse, Wound irrigation by nurse, Copious irrigation. Skin closed with 6 4-0 Prolene using interrupted sutures and sterile technique. Dressed with Bacitracin, 4x4's. Patient tolerated well. MDM: 22:30 Patient medically screened. [facility] 23:45 Differential diagnosis: contusion, abrasion, laceration. Data reviewed: vital signs, [facility] nurses notes, radiologic studies, plain films. Counseling: I had a detailed discussion with the patient and/or guardian regarding: the historical points, exam findings, and any diagnostic results supporting the discharge/admit diagnosis, radiology results, the need for outpatient follow up, to return to the emergency department if symptoms worsen or persist or if there are any questions or concerns that arise at home. 07/20 22:12 Order name: XRAY Hand RIGHT 3 View wh Administered Medications: 23:53 Drug: Tetanus-Diphtheria Toxoid Adult 0.5 ml {Corrugated Fastener Driver: [employer]. Exp: rr5 03/28/2021. Lot #: [id number]. } Route: IM; Site: right deltoid; 07/21 00:08 Follow up: Response: No adverse reaction Disposition: 07/21/19 23:46 Discharged to Home. Impression: Right Hand laceration. - Condition is Stable. - Discharge Instructions: Laceration Care, Adult, [id number]. - Prescriptions for Keflex 500 mg Oral Capsule - take 1 capsule by ORAL route every 12 hours for 7 days; 14 capsule. - Medication Reconciliation Form, Thank You Letter, Antibiotic Education, Prescription Opioid Use form. - Follow up: Private Physician; When: 1 - 2 days; Reason: Wound Recheck, Worsening of condition, Re-evaluation by your physician. - Problem is new. - Symptoms have improved. Signatures: Dispatcher [employer] EDMS Beau Munoz Gordo Robertson RN RN rr5 Sharon Varela RN RN ca1 Red Carreon MD MD mh7 Corrections: (The following items were deleted from the chart) 00:09 0608 23:46 07/21/2019 23:46 Discharged to Home. Impression: Right Hand laceration. Condition is Stable. Forms are Medication Reconciliation Form, Thank You Letter, Antibiotic Education, Prescription Opioid Use. Follow up: Private Physician; When: 1 - 2 days; Reason: Wound Recheck, Worsening of condition, Re-evaluation by your physician. Problem is new. Symptoms have improved. mh7
[2019-07-21] MEDS ORDERED: TETANUS & DIPHTHERIA TOX,ADULT 0.5 ML VIAL ONE (23:57)
[2019-07-22 00:29] VITALS: TEMP 97.2; O2SAT 100
[2019-07-22 00:33] VITALS: BP 159/93
== END 2019-07-22 00:09 | disposition home or self-care (01) ==
LOC: ER 20:01
PROC: 0JQJ0ZZ Repair Right Hand Subcutaneous Tissue and Fascia, Open Approach (ICD-10-PCS; principal; 2019-07-22)
DX: S61.411A Laceration without foreign body of right hand, initial encounter (principal); W26.0XXA Contact with knife, initial encounter; Y93.G1 Activity, food preparation and clean up; Y92.000 Kitchen of unspecified non-institutional (private) residence as the place of occurrence of the external cause; I10 Essential (primary) hypertension; E11.9 Type 2 diabetes mellitus without complications; Z23 Encounter for immunization; Z85.3 Personal history of malignant neoplasm of breast; Z79.82 Long term (current) use of aspirin; Z88.5 Allergy status to narcotic agent; Z88.2 Allergy status to sulfonamides
CPT/HCPCS: 90471; 90714; 99284

== ENCOUNTER 2020-03-12 10:10 | Inpatient (IN) | payer OTHER ==
--- OUTSIDE RECORDS SUMMARY | 2020-03-12 10:14 | XMS REPORT | Continuity of Care Document ---
:1940 Author Organization [facility] t Address [address] [place] [address] Care Team Providers Name Role Phone Roger MONTGOMERY Primary Care Physician Payers Payer Name Policy Type Policy Effective Date Expiration Source Number Date CIGNA [id number] [facility] [id number] 2018-Pr esentHMO Problems Condition Condition Condition Status Onset Resolution Last Treating Co mments Source Name Details Category Date Date Treatment Clinician Date Chest Chest Disease Active [place] pressure pressure 7-30 Method i 00:00: st 00 Stented Stented Disease Active [place] coronary coronary 7-30 Method i artery artery 00:00: st 00 Abnormal Abnormal Disease Active [place] stress stress 625 Methodi test test 00:00: st 00 Coronary Coronary Disease Active Overview: [place] artery artery 6-25 Added Methodi disease disease 00:00: automatic st involving involving 00 ally from [place] request heart with heart with for angina angina surgery pectoris pectoris [id number] SOB SOB Disease Active [place] (shortness (shortness 6-04 Me thodi of breath) of breath) 00:00: st 00 Bilateral Bilateral Disease Active [place] st[place] carotid carotid 6-04 Methodi bruits bruits 00:00: st 00 Encounter Encounter Disease Active [place] ston to to 4-16 Methodi establish establish 00:00: st care care 00 Coronary Coronary Disease Active [place] artery artery 4-16 Methodi disease disease 00:00: st involving involving 00 [place] coronary coronary artery of artery of [place] heart heart without without angina angina pectoris pectoris TIA TIA Disease Active [place] (transient (transient 4-16 Me th[place] ischemic ischemic 00:00: st attack) attack) 00 Allergies, Adverse Reactions, Alerts Allergy Allergy Status Severity Reaction(s) Onset Inactive Treating Comm ents Source Name Type Date Date Clinician Sulfa Propensi Active Other (See Severe [place] (Sulfona ty to Comments) 7-10 dry mouth Me th[place] mide adverse 00:00: st Antibiot reaction 00 ics) s to drug Codeine Propensi Active Itching Severe [place] ty to 4-16 itching Methodi adverse 00:00: st reaction 00 s to drug codeine Adverse Active Info Not [facility] Reaction Available [facility] Sulfa Adverse Active Info Not [facility] Reaction Available [facility] Social History Social Habit Start Date Stop Date Quantity Comments Source Sex Assigned At [facility] ethodist Tobacco use and 2018-11-26 2018-11-[address] [facility] ethodist exposure 00:00:00 00:00:00 Alcohol intake 2018-11-26 2018-11-[address] [facility] [facility]00 (finding) Smoking Status Start Date Stop Date Source Never smoker [place] Herbieis t Medications Ordered Filled Start Stop Current Ordering Indication Dosage Frequency Signature Comments Components Source Medication Medication Date Date Medication? Clinician (SIG) Name Name isosorbide 2020- No Coronary 30mg QD Take 1 [place] mononitrate 02-27 artery tablet (30 Methodi (IMDUR) 30 00:00: 23:59 disease mg total) st MG 24 hr 00 :00 involving by mouth tablet [place] every coronary morning. artery of [place] heart without angina pectoris aspirin 2018-02 Yes 81mg QD Take 81 mg [place] (ECOTRIN) 0-15 by mouth Method i 81 MG 10:43: daily. st enteric 05 coated tablet amLODIPine 2018-02 Yes 10mg QD Take 10 mg [place] (NORVASC) 0-15 by mouth Method i 10 mg 10:43: daily. st tablet 05 multivit/fo 2018-02 Yes 1{tbl} QD Take 1 Ho uscristin lic 0-15 tablet by Methodi acid/vit K1 10:43: mouth st (ONE-A-DAY 05 daily. WOMEN'S 50 PLUS ORAL) furosemide 2018- Yes as needed. H cherri (LASIX) 20 8-05 Methodi mg tablet 00:00: st 00 potassium 2018- Yes as needed. Ho soni chloride 20 8-05 Methodi mEq tablet 00:00: st extended 00 release nitroglycer Yes Coronary .4mg Place 1 [place] in 7-30 artery tablet Methodi (NITROSTAT) 00:00: disease (0.[address] 0.4 MG SL 00 involving total) tablet [place] under the coronary tongue artery of every 5 [place] (five) heart minutes as without needed for angina chest pectoris pain. metFORMIN Yes 500mg Q.5D Take 1 [place] (GLUCOPHAGE 7-14 tablet Method i ) 500 mg 00:00: ([address] tablet 00 total) by mouth 2 (two) times a day with meals. Hold metformin for 48 hours.Rest art at 08/25/2018 clopidogrel Yes Coronary 75mg QD Take 1 [place] (PLAVIX) 75 4-16 artery tablet (75 Methodi mg tablet 00:00: disease mg total) st 00 involving by mouth [place] daily. coronary artery of [place] heart without angina pectoris rosuvastati Yes 40mg QD Take 40 mg [place] n (CRESTOR) 3-27 by mouth Meth thom 40 MG 00:00: nightly. st tablet 00 metoprolol Yes 50mg Q.5D 50 mg 2 [place] tartrate 3-08 (two) Methodi (LOPRESSOR) 00:00: times a st 50 mg 00 day. tablet Neomycin-Po Neomycin-Po Yes Felicita [address] [facility] lymyxin-HC lymyxin-HC 9-07 [facility] [facility] 00[facility]: affected [facility] 00 ears [facility] Metformin Metformin Yes Felicita [address] [facility] HCl HCl [place] with meals [facility] - [facility] Metoprolol Metoprolol Yes Felicita [address] [facility] [address] Tartrate Tartrate Millender Mayda kes - Memoria [facility] Amlodipine Amlodipine Yes Felicita [address] [facility] Besylate Besylate Millender Mayda kes [facility] ent [facility] Clopidogrel Clopidogrel Yes Felicita [address] Bisulfate Bisulf[address] [facility] [facility] ent [facility] Rosuvastati Rosuvastati Yes Felicita [address] [facility] [facility] n Calcium n Calcium Mill[place] in evening [facility] Isosorbide Isosorbide Yes Felicita [address] Mononitrate Mononitrate [place] in the [facility] - [facility] ER morning [facility] ent [facility] Aspirin 81 Aspirin 81 Yes Felicita [address] [facility] [facility] ent [facility] Furosemide Furosemide Yes Felicita [address] [facility] [facility] Millender as needed [facility] - for leg Memoria swelling l (take with [facility] potassium ent chloride) Clinics Nitroglycer Nitroglycer Yes Felicita as [facility] in in [place] directed [facility] Immunizations Ordered Filled Immunization Date Status Comments [facility] e Immunization Name Name FLUZONE HIGH DOSE FLUZONE HIGH DOSE 2018-11-[address] [facility] - OVER 65 OVER 65 00:00:00 [facility] Procedures This patient has no known procedures. Plan of Care Planned Activity Planned Date Details Comments Source Future Scheduled 2019-09-13 INFLUENZA VACCINE [place] [facility] 00:00:00 [code = INFLUENZA VACCINE] Future Scheduled 2007-07-05 65+ PNEUMOCOCCAL [place] [facility] Test 00:00:00 VACCINE (1 of 1 - PPSV23) [code = 65+ PNEUMOCOCCAL VACCINE (1 of 1 - PPSV23)] Future Scheduled 1992 [facility]INGLES [facility]IN[facility] 00:00:00 [code = SHINGLES VACCINES (#1)] Future Scheduled 1958 COVID-19 VACCINE (1 of [place] [facility] Test 00:00:00 2) [code = COVID-19 VACCINE (1 of 2)] Encounters Start End Encounter Admission Attending Care Care Encounter Source Date/Time Date/Time Type Type Clinicians Facility Department ID 2020-01-06 2020-01-06 Outpatient [facility] [id number] [facility]00 [facility] 2019-11-18 2019-11-18 Outpatient [facility] [id number] [facility] 2019-05-29 2019-05-29 [facility] [id number] 13:45:00 13:45:00 [facility] 2019-05-01 2019-05-01 [facility] [id number] 14[facility]00:00 14:00:00 [facility] Clin[facility] 2019-03-26 2019-03-26 [facility] [id number] 13:38:00 13:38:00 [facility] Clinics 2019-03-19 2019-03-19 [facility] [id number] 08:30:00 08:30:00 [facility] Clinics 2019-02-21 2019-02-21 [facility] [id number] 09:28:00 09:28:00 [facility] 2019-01-02 2019-01-02 [facility] [id number] 14:03:00 14:03:00 [facility] 2018-12-19 2018-12-19 [facility] [id number] 08:20:00 08:20:00 [facility] 2018-11-13 2018-11-13 [facility] [id number] 23:10:00 23:10:00 [facility] 2018-11-13 2018-11-13 [facility] [id number] 16:20:00 16:20:00 [facility] 2018-09-16 2018-09-16 [facility] [id number] 13:55:00 13:55:00 [facility] 2018-09-16 2018-09-16 [facility] [id number] 08:20:00 08:20:00 [facility] 2018-08-05 2018-08-05 [facility] [id number] 09:08:00 09:08:00 [facility] Clinics 2018-06-12 2018-06-12 [facility] [id number] 11:49:00 11:49:00 [facility] ent Clinics 2018-06-12 2018-06-12 [facility] [id number] 08:30:00 08:30:00 [facility] Clinics 2018-06-04 2018-06-04 [facility] [id number] 09:24:00 09:24:00 [facility] ent Clinics 2018-05-31 2018-05-31 [facility] [id number] 10:16:00 10:16:00 [facility] Clinics 2018-05-27 2018-05-27 [facility] [id number] 10:00:00 10:00:00 [facility] Clinics 2018-05-21 2018-05-21 [facility] [id number] 15:00:00 15:00:00 [facility] Clinics 2018-04-08 2018-04-08 [facility] [id number] 08:30:00 08:30:[address] [place] [facility] Outpat[facility] ent Clinics Results This patient has no known results.
--- OUTSIDE RECORDS SUMMARY | 2020-03-12 10:14 | XMS REPORT | Clinical Summary ---
:1940 Author Organization [facility] Address [address] [place] [address] Care Team Providers Name Role Phone Felicita Duran MD Primary Care Provider Allergies Active Allergy Reactions Severity Noted Date Comments Codeine Itching High 05/28/2018 Severe itching Sulfa (Sulfonamide Other (See Comments) High 08/21/2018 S evere dry mouth Antibiotics) Medications Medication Sig Dispensed Refills Start Date End Date Status metoprolol tartrate 50 mg 2 (two) 2 04/19/2018 Active (LOPRESSOR) 50 mg times a day. tablet rosuvastatin Take 40 mg by 0 05/08/2018 Ac tive (CRESTOR) 40 MG mouth nightly. tablet clopidogrel (PLAVIX) Take 1 tablet 90 tablet 3 05/28/2018 Active 75 mg (75 mg total) by tabletIndications: mouth daily. Coronary artery disease involving [place] coronary artery of [place] heart without angina pectoris aspirin (ECOTRIN) 81 Take 81 mg by 0 Active MG enteric coated mouth daily. tablet amLODIPine (NORVASC) Take 10 mg by 0 Active 10 mg tablet mouth daily. multivit/folic Take 1 tablet by 0 Active acid/vit K1 mouth daily. (ONE-A-DAY WOMEN'S 50 PLUS ORAL) metFORMIN Take 1 tablet 0 08/25/2018 Activ e (GLUCOPHAGE) 500 mg (500 mg total) tablet by mouth 2 (two) times a day with meals. Hold metformin for 48 hours.Restart at 08/25/[address] 1 tablet 100 tablet 3 09/10/2018 Active (NITROSTAT) 0.4 MG (0.4 mg total) SL under the tongue tabletIndications: every 5 (five) Coronary artery minutes as disease involving needed for chest [place] coronary pain. artery of [place] heart without angina pectoris furosemide (LASIX) as needed. 0 09/16/2018 Active 20 mg tablet potassium chloride as needed. 0 09/16/2018 Active 20 mEq tablet extended release isosorbide Take 1 tablet 90 tablet 3 02/27/2019 02/27/2020 Exp ired mononitrate (IMDUR) (30 mg total) by 30 MG 24 hr mouth every tabletIndications: morning. Coronary artery disease involving [place] coronary artery of [place] heart without angina pectoris Active Problems Problem Noted Date Chest pressure 09/10/2018 Stented coronary artery 09/10/2018 Abnormal stress test 08/06/2018 Coronary artery disease involving [place] heart with an court pectoris 08/06/2018 Overview: Added automatically from request for damaris payan [id number] SOB (shortness of breath) 07/16/2018 Bilateral carotid bruits 07/16/2018 Encounter to establish care 05/28/2018 Coronary artery disease involving [place] coronary yeni ry of [place] heart 05/28/2018 without angina pectoris TIA (transient ischemic attack) 05/28/2018 Encounters Date Type Specialty Care Team Description 05/19/2019 Travel after 03/12/2019 Surgical History Surgery Date Site/Laterality Comments BRAIN SURGERY BREAST LUMPECTOMY BACK SURGERY HYSTERECTOMY KNEE SURGERY CARDIAC CATHETERIZATION 08/22/2018 N/A Procedur e: PCI stent; Surgeon: Sonido Neri MD; Location: [facility]; Service: Cardiol ogy; Laterality: N/A; [facility] [employer] I Medical devices from this surgery are in the Impla nts section. CARDIAC CATHETERIZATION 08/22/2018 N/A Procedur e: Selective coronary angiography; Drake rgeon: Sonido Neri MD; Locatio n: [facility] [employer] Invasive Locatio n; Service: Cardiology; Lat erality: N/A; Medical devices from this surgery are in the Impla nts section. Medical History Medical History Date Comments Myocardial infarction (HCC) Hypertension Hyperlipidemia Diabetes mellitus (HCC) Cancer (HCC) Breast cancer (HCC) Social History Tobacco Use Types Packs/Day Years Used Date Never Smoker Smokeless Tobacco: Never Used Alcohol Use Drinks/Week oz/Week Comments Not Currently Sex Assigned at Date Recorded Not on file Last Filed Vital Signs Not on file Plan of Treatment Health Maintenance Due Date Last Done Comments COVID-19 VACCINE (1 of 2) 1956 SHINGLES VACCINES (#1) 1992 65+ PNEUMOCOCCAL VACCINE (1 of 1 - PPSV23) 07/05/2007 INFLUENZA VACCINE 09/13/2019 Implants Implanted Type 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 Shelf Model / Identifier Expiration Serial / Date Lot Stent Coronary Syst Synergy (Mr) 3.00mm X 38mm - [id number] Coronary N/A: BSC 06/11/2020 [id number] / Implanted: 08/22/2018 at [facility] (Quantity not on file) Willis nts N/A INTERVENTIONAL / CARDIOLOGY [id number] System Clsr Sut Meditd 6fr Perclose Proglide - [id number] Surgic al N/A: MEJIA VASCULAR 05/12/2020 [id number] / Implanted: 08/22/2018 at [facility] (Quantity not on file) Imp lants; N/A DEVICES / Expanders; [id number] Extenders; Surgical Wires System Clsr Sut Meditd 6fr Perclose Proglide - [id number] Surgic al N/A: MEJIA VASCULAR 05/12/2020 [id number] / Implanted: 08/22/2018 at [facility] (Quantity not on file) Imp lants; N/A DEVICES / Expanders; [id number] Extenders; Surgical Wires Results Not on fileafter 03/12/2019 Insurance Payer Benefit Plan / Subscriber ID Effective Dates Phone Addre ss Type Group [employer] [id number] [facility] t Advance Directives For more information, please contact: [phone] Type Date Recorded 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
--- OUTSIDE RECORDS SUMMARY | 2020-03-12 10:15 | XMS REPORT ---
:1940 Author Organization [facility] Address [address] [place] [address] Care Team Providers Name Role Phone Cabrera Unavailable [phone] PROBLEMS Type Condition ICD9-CM [id number] Onset Condition SNOMED Code Notes Code Code Dates Status Problem Hypertension, I10 Active 64510506 unspecified type Problem Hyperlipidemia, E78.5 Active 20875920 unspecified hyperlipidemia type Problem History of breast Z85.3 Active 268298379 cancer Problem History of AK I25.2 Active 395311215 (myocardial infarction) Problem Uncontrolled type E11.65 Active 397217769 2 diabetes mellitus without complication, without long-term current use of insulin Problem Type 2 diabetes E11.9 Active 576818367 Problem Low back pain M54.5 Active 482883127 Problem Impingement M75.42 Active 620158200598335 syndrome of left shoulder Problem Sprain of left S43.422A Active 428177004522 rotator cuff capsule, initial encounter Problem Status post Z95.5 Active 805807589 coronary artery stent placement Problem Coronary artery I25.10 Active 9713008974486 disease involving [place] coronary artery of [place] heart without angina pectoris Problem Other chronic pain G89.29 Active 69822133 Problem Bilateral hearing H91.93 Active 48124941 loss, unspecified hearing loss type Problem Microalbuminuria R80.9 Active 537108478 Problem Elevated alkaline R74.8 Active 414937777 phosphatase level Problem Elevated serum R79.89 Active 292663334 creatinine Problem Hypokalemia E87.6 Active 15761230 Problem Essential I10 Active 06627371 hypertension Problem Tear of left M75.100 Active 118111681 supraspinatus tendon Problem Impingement M75.41 Active 62543226590256086 syndrome of right shoulder Problem Pain in left M25.512 Active 76652611 shoulder Problem Pain in right M25.511 Active 91178644 shoulder Problem Cataract, H26.9 Active 739916264 unspecified cataract type, unspecified laterality Problem Hyperlipidemia E78.5 Active 33234333 Problem Encopresis R15.9 Active 293984621 Problem Hypertension I10 Active 52922618 Problem Dysphagia, R13.10 Active 86371282 unspecified type Problem 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, left shoulder Problem Tear of left S46.812A Active 255197429 supraspinatus tendon, initial encounter Problem Peripheral edema R60.9 Active 595057548 Problem BMI Z68.31 Active 296250631 31.0-31.9,adult ALLERGIES Allergen (clinical drug Drug/Non Drug Allergy Reaction Allergy Type Onset Date Status ingredient) documented on EMR codeine codeine Unknown Drug Allergy Active Sulfa Unknown Drug Allergy Active ENCOUNTERS from 1940 to 2020-01-13 Encounter Location Date Provider Diagnosis [facility] [address] [facility] [address] Dec, 2019 Fco Cabrera Encounter for Family Medicine [place], [place] vaccinat ion Z23 ; [id number] History of AK (myocardial infarction) I25 .2 ; Coronary artery disease involvi ng [place] coronary artery of [place] heart without angina pectoris I25.10 and Type 2 diabetes E11.9 IMMUNIZATIONS Vaccine Route Administration Date Status Bupivicaine Pember[place] Unknown May 01, 2019 Administered Bupivicaine Pemberton Unknown Mar 19, 2019 Administered FLUZONE HIGH DOSE OVER 65 IM Intramuscular Jan 06, 2020 Admin istered FLUZONE HIGH DOSE OVER 65 IM Intramuscular Nov 13, 2018 Admin istered LIDOCAINE HCL 10MG/ML Unknown July 11, 2018 Administer ed Kenalog (Triamcinolone) Unknown May 01, 2019 Administ ered Kenalog (Triamcinolone) Unknown Mar 19, 2019 Administ ered Kenalog (Triamcinolone) Unknown July 11, 2018 Administ ered SOCIAL HISTORY Tobacco Use: Social History Observation Description Date Details (start date - stop date) Never Smoker Sex Assigned At : Social History Observation Description Sex Assigned At Unknown PHQ9 Question Answer Notes Little interest or pleasure in doing things Not at all Feeling down, depressed, or hopeless Not at all Trouble falling or staying asleep or sleeping too much Sever al days Feeling tired or having little energy Not at all Poor appetite or overeating Several days Feeling bad about yourself, or that you are a failure, or No t at all have let yourself or your family down Trouble concentrating on things, such as reading the Not at all newspaper or watching television Moving or speaking so slowly that other people could have No t at all noticed; or the opposite, being so fidgety or restless that you have been moving around a lot more than usual Total Score 2 Interpretation Minimal Depression Thoughts that you would be better off or of hurting Not at all yourself in some way Alcohol Screen Question Answer Notes Did you have a drink containing alcohol in the past year? No Points 0 Interpretation Negative Tobacco Use/Smoking Question Answer Notes Are you a never smoker Additional Findings: Tobacco Non-User Current non-smoker REASON FOR REFERRAL No Information VITAL SIGNS Height 64.00 in Dec, Weight 178.4 lbs Dec, Temperature 97.6 degrees Fahrenheit Dec, BMI 30.62 kg/m2 Dec, Oximetry 69 % Dec, Respiratory Rate 18 /min Dec, Blood pressure systolic 136 mm Hg Dec, Blood pressure diastolic 84 mm Hg Dec, MEDICATIONS Medication SIG (Take, Route, Notes Start Date End Date Status Frequency, Duration) Aspirin 81 81 MG 1 tablet Orally Once Active a day Furosemide 20 MG 1 tablet as needed Active for leg swelling (take with potassium chloride) Orally Once a day for 30 day(s) Rosuvastatin Calcium 40 1 tablet in evening Active MG Orally Once a day for 90 days Metoprolol Tartrate 50 MG 1 tablet Orally Twice Active a day for 90 days Isosorbide Mononitrate ER 1 tablet in the Active 30 MG morning Orally Once a day for 90 days Tozwkcvc-Xdrqfjvsk-LN 1 % 4 drops into affected Oct, Not-Taking ears Otic Three times a day for 7 days Clopidogrel Bisulfate 75 1 tablet Orally Once Active MG a day for 90 days Metformin HCl 500 MG 1 tablet with meals Active Orally Twice a day for 90 days Nitroglycerin 0.4 MG as directed Act caitlyn Sublingual 1 tablet every 5 minutes as needed for chest pain x3 doses for 30 days Amlodipine Besylate 10 MG 1 tablet Orally Once Active a day for 90 days PROCEDURES No Information RESULTS No Results REASON FOR VISIT Est/prev Millender [phone] MEDICAL (GENERAL) HISTORY Type Description Date Medical History Hyperlipidemia Medical History Hypertension Medical History Type 2 diabetes Medical History Low back pain Medical History female/gynecological problems Medical History ULCERS Medical History HX of breast cancer Medical History lymphedema left arm Medical History HEART STENTS Surgical History Left breast mastectomy due ot breast can cer 2008 Surgical History Hysterectomy 1974 Surgical History Lower Back Surgery 1993 Surgical History Right Knee Surgery 03/22/16 Surgical History 2 cardiac stents placed per cardiology John Neri 08/22/18 Goals Section No Information Health Concerns No Information MEDICAL EQUIPMENT No Information MENTAL STATUS No Information FUNCTIONAL STATUS No Information ASSESSMENTS Encounter Date Diagnosis Assessment Notes Treatment Notes Treatm ent Clinical Notes Dec, Encounter for vaccination (ICD-10 - Z23) Dec, History of AK 79 F hx DMII, CAD (myocardial sp stent x 2 2019, infarction) HTN, HLD presents (ICD-10 - I25.2) to establish care. Will obtain routine labs, cardiology referral for CAD and opthalmology referral for DMII eye exam. Dec, Coronary artery disease involving [place] coronary artery of [place] heart without angina pectoris (ICD-10 - I25.10) Dec, Type 2 diabetes (ICD-10 - E11.9) PLAN OF TREATMENT Treatment Notes Assessment Notes Clinical Notes History of AK (myocardial 79 F hx DMII, CAD sp stent x 2 201 9, infarction) HTN, HLD presents to establish care. Will obtain routine labs, cardiology referral for CAD and opthalmology referral for DMII eye exam. Future Test Test Name Order Date CBC With Differential/Platelet [id number] Comp. Metabolic Panel (14) (CMP) [id number] TSH reflex to T4 [id number] Hemoglobin A1c 80261054 Lipid Panel [id number] Next Appt Details Provider Name:Fco Cabrera 2020-06-28 08:00 :00 AM, [address], [address], [place], [address], Provider Name:Fco Cabrera 2020-07-05 01:00 :00 PM, [address], [address], [place], [address], Insurance Providers Payer Name Payer Payer Insured Patient Coverage Coverage End Address Phone Name Relationship to Start Date Benja e Insured [place] [phone] Rose Marie Galindo self [facility] [id number] [facility] [place] Replace [phone]
[2020-03-12 12:08] LABS: Absolute Lymphocytes (CBC) 1.7 K/uL (0.7-4.9); Basophils % 0.4 % (0-1.3); Hematocrit 40.6 % (36.0-45.0); Lymphocytes % 22.8 % (15.3-44.8); MPV 9.4 fL (7.6-11.3); RBC Red Blood Cell Count 4.69 M/uL (3.86-4.86)
[2020-03-12 12:19] LABS: Albumin 3.5 g/dL (3.4-5.0); Bilirubin Direct 0.2 mg/dL (0-0.2); Bilirubin Total 0.6 mg/dL (0.2-1.0); Potassium 3.5 mmol/L (3.5-5.1); Protein, Total 7.8 g/dL (6.4-8.2)
--- NOTE | 2020-03-12 13:51 | RAD REPORT ---
EXAM DESCRIPTION: CT - Abdomen Pelvis Wo Contrast - 03/12/2020 1:35 pm CLINICAL HISTORY: Abdominal pain. ABD PAIN COMPARISON: CT ABD PELVIS W CONTRAST dated 09/26/2012 TECHNIQUE: CT imaging of the abdomen and pelvis was performed without contrast. Solid organ, bowel a nd vascular assessment is limited due to lack of IV and oral contrast. All CT scans are performed using dose optimization technique as appropriate and may include automated exposure control or mA/KV adjustment according to patient size. FINDINGS: The lower lung uribe are clear. The liver, spleen, adrenal glands and kidneys are within normal limits for a limited non-contrast exa mination. Mild inflammatory changes suspected around the pancreas. No bowel obstruction, free air, free fluid or abscess. Prominent sigmoid diverticulosis coli without diverticulitis. The appendix is normal. Moderate lumbosacral degenerative changes are present. Hardware is present proximal left femur. IMPRESSION: Mild acute pancreatitis is suspected. Suggest correlation with amylase and lipase levels . A limited non-contrast examination was performed as detailed.
--- NOTE | 2020-03-12 16:06 | ER ---
Nurse's Notes [facility] Name: Kaylynn Galindo Age: 79 yrs Sex: Female : 1940 Arrival Date: 03/12/2020 Time: 10:24 Bed 5 Private MD: Diagnosis: Abdominal and pelvic pain;Acute pancreatitis Presentation: 03/12 10:28 Chief complaint: Patient states: Epigastric pain since Sunday. No N/V/D. No fever. ll1 Coronavirus screen: Client denies travel out of the [place] in the last 14 days. At this time, the client does not indicate any symptoms associated with coronavirus-19. Ebola Screen: Patient denies travel to an Ebola-affected area in the 21 days before illness onset. Initial Sepsis Screen: Does the patient meet any 2 criteria? HR > 90 bpm. No. Patient's initial sepsis screen is negative. Does the patient have a suspected source of infection? Yes: Acute abdominal pain. Risk Assessment: Do you want to hurt yourself or someone else? Patient reports no desire to harm self or others. Onset of symptoms was March 10, 2020. 10:28 Method Of Arrival: Ambulatory ll1 10:28 Acuity: ALEXUS 3 ll1 Triage Assessment: 10:30 General: Appears in no apparent distress. uncomfortable, Behavior is cooperative, bp appropriate for age, anxious. Pain: Complains of pain in epigastric area. EENT: No deficits noted. Neuro: No deficits noted. Cardiovascular: No deficits noted. Respiratory: No deficits noted. GI: Reports epigastric pain. : No signs and/or symptoms were reported regarding the genitourinary system. Derm: No deficits noted. Musculoskeletal: No deficits noted. Historical: - Allergies: 10:28 Codeine; ll1 10:28 Sulfa (Sulfonamide Antibiotics); ll1 - PMHx: 10:28 breast cancer; Hypertension; Mild CA; Diabetes - NIDDM; ll1 - PSHx: 10:28 BRAIN; RIGHT BUNIONECTOMY; BACK SURGERY; Hysterectomy; RIGHT TIBIA; ll1 - Immunization history:: Flu vaccine is up to date. - Social history:: Smoking status: Patient denies any tobacco usage or history of. Screenin:51 Abuse screen: Denies threats or abuse. Denies injuries from another. Nutritional jl7 screening: No deficits noted. Tuberculosis screening: No symptoms or risk factors identified. Fall Risk IV access (20 points). Total Gibson Fall Scale indicates No Risk (0-24 pts). Assessment: 10:51 General: Appears in no apparent distress. uncomfortable, Behavior is calm, cooperative, jl7 appropriate for age. Pain: Complains of pain in epigastric area Pain does not radiate. Pain currently is 6 out of 10 on a pain scale. at worst was 10 out of 10 on a pain scale. Quality of pain is described as "Like someone kicked me in the stomach." Pain began x 4 days Is continuous. Neuro: Level of Consciousness is awake, alert, obeys commands, Oriented to person, place, time, situation. Cardiovascular: Patient's skin is warm and dry. Respiratory: Airway is patent Respiratory effort is even, unlabored, Respiratory pattern is regular, symmetrical. GI: Bowel sounds present X 4 quads. Abd is soft X 4 quads Abd is non tender in right lower quadrant and left lower quadrant Abdomen is tender to palpation in epigastric area, right upper quadrant and left upper quadrant. : No signs and/or symptoms were reported regarding the genitourinary system. Derm: Skin is pink, warm \\T\\ dry. 12:00 Reassessment: Patient appears in no apparent distress at this time. No changes from bp previously documented assessment. Patient and/or family updated on plan of care and expected duration. Pain level reassessed. ALL CURRENT ORDERS COMPLETE. 14:00 Reassessment: No changes from previously documented assessment. Patient and/or family bp updated on plan of care and expected duration. Pain level reassessed. Patient is alert, oriented x 3, equal unlabored respirations, skin warm/dry/pink. 15:00 Reassessment: Patient appears in no apparent distress at this time. No changes from jl7 previously documented assessment. Patient and/or family updated on plan of care and expected duration. Pain level reassessed. Patient is alert, oriented x 3, equal unlabored respirations, skin warm/dry/pink. 16:00 Reassessment: Patient appears in no apparent distress at this time. No changes from jl7 previously documented assessment. Patient and/or family updated on plan of care and expected duration. Pain level reassessed. Patient is alert, oriented x 3, equal unlabored respirations, skin warm/dry/pink. 17:00 Reassessment: Patient appears in no apparent distress at this time. No changes from jl7 previously documented assessment. Patient and/or family updated on plan of care and expected duration. Pain level reassessed. Patient is alert, oriented x 3, equal unlabored respirations, skin warm/dry/pink. 18:00 Reassessment: Patient appears in no apparent distress at this time. No changes from jl7 previously documented assessment. Patient and/or family updated on plan of care and expected duration. Pain level reassessed. Patient is alert, oriented x 3, equal unlabored respirations, skin warm/dry/pink. 20:16 Reassessment: Patient and/or family updated on plan of care and expected duration. Pain ea level reassessed. Patient is alert, oriented x 3, equal unlabored respirations, skin warm/dry/pink. Pt admitted to second floor, report given to receiving nurse on second floor. Pt left ED via wheelchair per tech, pt tolerating well. Vital Signs: 10:28 BP 174 / 98; Pulse 95; Resp 17; Temp 98.3; Pulse Ox 98% on R/A; Weight 78.93 kg; Height ll1 5 ft. 4 in. (162.56 cm); Pain 6/10; 12:00 BP 129 / 75; Pulse 57; Resp 16; Pulse Ox 100% ; bp 13:00 BP 173 / 89; Pulse 94; Resp 16; Pulse Ox 96% ; bp 14:00 BP 149 / 87; Pulse 65; Resp 17; Pulse Ox 100% ; bp 15:00 BP 151 / 75; Pulse 72; Resp 17; Pulse Ox 100% ; bp 17:00 BP 157 / 85; Pulse 67; Resp 17; Pulse Ox 98% ; bp 18:46 BP 151 / 82; Pulse 63; Resp 15; Pulse Ox 98% ; jl7 19:55 BP 145 / 70; Pulse 62; Resp 17; Temp 98.0; Pulse Ox 98% on R/A; ea 10:28 Body Mass Index 29.87 (78.93 kg, 162.56 cm) ll1 ED Course: 10:24 Patient arrived in ED. am4 10:27 Arm band placed on. ll1 10:29 Triage completed. ll1 10:44 Elsy Cheema RN is Primary Nurse. jl7 10:49 Max Taveras MD is Attending Physician. kdr 10:51 Patient has correct armband on for positive identification. Placed in gown. Bed in low jl7 position. Call light in reach. Side rails up X 1. Pulse ox on. NIBP on. 11:30 Missed attempt(s): 22 gauge in right forearm. Bleeding controlled, band aid applied, jl7 catheter tip intact. 11:35 Missed attempt(s): 22 gauge in right hand. Bleeding controlled, band aid applied, jl7 catheter tip intact. 11:53 Initial lab(s) drawn, by me, sent to lab. Inserted saline lock: 22 gauge in right dh3 antecubital area, using aseptic technique. Blood collected. 13:42 Abdomen In Process Unspecified. EDMS 16:08 Alverto Holguin is Hospitalizing Provider. kdr 16:44 COVID swab sent to lab. jl7 19:15 Primary Nurse role handed off by Elsy Cheema, RN mw2 19:18 No provider procedures requiring assistance completed. Patient admitted, IV remains in ea place. Administered Medications: No medications were administered Outcome: 16:06 Discharge ordered by . kdr 16:08 Decision to Hospitalize by Provider. kdr 19:18 Instructed on the need for admit, Demonstrated understanding of instructions. ea 20:16 Admitted to Med/surg accompanied by nurse, via wheelchair, room 203, with chart, Report ea called to Receiving nurse on second floor 20:16 Condition: stable 20:17 Patient left the ED. ea Signatures: Dispatcher [employer] EDME Max Taveras MD MD kdr Elsy Cheema, RN RN jl7 Harleen Aguero [facility] Nikkie Nichols RN RN ea Peltier, Brian RN RN bp Harrison Benito mw2 Gustavo Stevenson RN RN 1 Mitzy Cosme [facility] Corrections: (The following items were deleted from the chart) 11:44 11:35 Missed attempt(s): 22 gauge in right hand. jl7 jl7 18:57 15:00 Pulse 72bpm; Resp 17bpm; Pulse Ox 100%; bp bp
--- NOTE | 2020-03-12 16:06 | EDPHYS ---
Physician Documentation [facility] Name: Kaylynn Galindo Age: 79 yrs Sex: Female : 1940 Arrival Date: 03/12/2020 Time: 10:24 Bed 5 Private MD: ED Physician Max Taveras HPI: 03/12 17:14 This 79 yrs old Black Female presents to ER via Ambulatory with complaints of Abdominal kdr Pain. 17:14 The patient presents with abdominal pain in the epigastric area. Onset: The kdr symptoms/episode began/occurred gradually, 3 day(s) ago. The symptoms do not radiate. Associated signs and symptoms: Pertinent positives: nausea, Pertinent negatives: nausea and vomiting, anorexia, blood in stools, chest pain, constipation, diarrhea, dysuria, fever, headache, palpitations, shortness of breath, vaginal discharge, vomiting, vomiting blood. The symptoms are described as achy, crampy, dull, intermittent, vague. Modifying factors: The symptoms are alleviated by nothing, the symptoms are aggravated by movement, touching the area. Severity of pain: At its worst the pain was severe incapacitating in the emergency department the pain has improved moderately. The patient has experienced similar episodes in the past, a few times. The patient has not recently seen a physician. Historical: - Allergies: 10:28 Codeine; ll1 10:28 Sulfa (Sulfonamide Antibiotics); ll1 - PMHx: 10:28 breast cancer; Hypertension; Mild NV; Diabetes - NIDDM; ll1 - PSHx: 10:28 BRAIN; RIGHT BUNIONECTOMY; BACK SURGERY; Hysterectomy; RIGHT TIBIA; ll1 - Immunization history:: Flu vaccine is up to date. - Social history:: Smoking status: Patient denies any tobacco usage or history of. ROS: 17:14 Constitutional: Negative for fever, chills, and weight loss, Eyes: Negative for injury, kdr pain, redness, and discharge, Neck: Negative for injury, pain, and swelling, Cardiovascular: Negative for chest pain, palpitations, and edema, Respiratory: Negative for shortness of breath, cough, wheezing, and pleuritic chest pain, Back: Negative for injury and pain, : Negative for injury, bleeding, discharge, and swelling, MS/Extremity: Negative for injury and deformity, Skin: Negative for injury, rash, and discoloration, Neuro: Negative for headache, weakness, numbness, tingling, and seizure activity. Psych: Negative for depression, anxiety, suicide ideation, homicidal ideation, and hallucinations, Allergy/Immunology: Negative for hives, rash, and allergies, Endocrine: Negative for neck swelling, polydipsia, polyuria, polyphagia, and marked weight changes, Hematologic/Lymphatic: Negative for swollen nodes, abnormal bleeding, and unusual bruising. 17:14 Abdomen/GI: Positive for abdominal pain, nausea, Negative for constipation, abdominal cramps, abdominal distension, black/tarry stool, rectal pain, rectal bleeding, bowel incontinence. Exam: 17:14 Constitutional: This is a well developed, well nourished patient who is awake, alert, kdr and in no acute distress. Head/Face: Normocephalic, atraumatic. Eyes: Pupils equal round and reactive to light, extra-ocular motions intact. Lids and lashes normal. Conjunctiva and sclera are non-icteric and not injected. Cornea within normal limits. Periorbital areas with no swelling, redness, or edema. Neck: Trachea midline, no thyromegaly or masses palpated, and no cervical lymphadenopathy. Supple, full range of motion without nuchal rigidity, or vertebral point tenderness. No Meningismus. Chest/axilla: Normal chest wall appearance and motion. Nontender with no deformity. No lesions are appreciated. Cardiovascular: Regular rate and rhythm with a normal S1 and S2. No gallops, murmurs, or rubs. Normal PMI, no JVD. No pulse deficits. Respiratory: Lungs have equal breath sounds bilaterally, clear to auscultation and percussion. No rales, rhonchi or wheezes noted. No increased work of breathing, no retractions or nasal flaring. Abdomen/GI: Soft, non-tender, with normal bowel sounds. No distension or tympany. No guarding or rebound. No evidence of tenderness throughout. Back: No spinal tenderness. No costovertebral tenderness. Full range of motion. Skin: Warm, dry with normal turgor. Normal color with no rashes, no lesions, and no evidence of cellulitis. MS/ Extremity: Pulses equal, no cyanosis. Neurovascular intact. Full, normal range of motion. Neuro: Awake and alert, GCS 15, oriented to person, place, time, and situation. Cranial nerves II-XII grossly intact. Motor strength 5/5 in all extremities. Sensory grossly intact. Cerebellar exam normal. Normal gait. Psych: Awake, alert, with orientation to person, place and time. Behavior, mood, and affect are within normal limits. Vital Signs: 10:28 BP 174 / 98; Pulse 95; Resp 17; Temp 98.3; Pulse Ox 98% on R/A; Weight 78.93 kg; Height ll1 5 ft. 4 in. (162.56 cm); Pain 6/10; 12:00 BP 129 / 75; Pulse 57; Resp 16; Pulse Ox 100% ; bp 13:00 BP 173 / 89; Pulse 94; Resp 16; Pulse Ox 96% ; bp 14:00 BP 149 / 87; Pulse 65; Resp 17; Pulse Ox 100% ; bp 15:00 BP 151 / 75; Pulse 72; Resp 17; Pulse Ox 100% ; bp 17:00 BP 157 / 85; Pulse 67; Resp 17; Pulse Ox 98% ; bp 18:46 BP 151 / 82; Pulse 63; Resp 15; Pulse Ox 98% ; jl7 19:55 BP 145 / 70; Pulse 62; Resp 17; Temp 98.0; Pulse Ox 98% on R/A; ea 10:28 Body Mass Index 29.87 (78.93 kg, 162.56 cm) ll1 MDM: 16:06 Patient medically screened. kdr 17:21 Data reviewed: vital signs, nurses notes, lab test result(s). [facility] 03/12 10:49 Order name: Basic Metabolic Panel kdr 03/12 10:49 Order name: CBC with Diff; Complete Time: 12:41 [facility] 03/12 10:49 Order name: Hepatic Function; Complete Time: 12:41 [facility] 03/12 10:49 Order name: Lipase; Complete Time: 12:41 kdr 03/12 10:49 Order name: Basic Metabolic Panel; Complete Time: 12:41 ED[facility] 03/12 16:08 Order name: COVID-19 : Document "Date of Symptom Onset" if Symptomatic. 03/12 10:49 Order name: IV Saline Lock; Complete Time: 11:56 kdr 03/12 10:49 Order name: Labs collected and sent; Complete Time: 11:56 [facility] 03/12 13:32 Order name: Abdomen ; Complete Time: 13:57 [facility] 03/12 17:05 Order name: CORONAVIRUS EDDC 03/12 17:57 Order name: SARS-COV-2 RT PCR EDDC Administered Medications: No medications were administered Disposition: 03/12/20 16:08 Hospitalization ordered by Alverto Holguin for Inpatient Admission. Preliminary diagnosis are Abdominal and pelvic pain, Acute pancreatitis. - Bed requested for Telemetry/MedSurg (Inpatient). - Status is Inpatient Admission. ea - Condition is Fair. - Problem is an acute exacerbation. - Symptoms have improved. Signatures: Dispatcher [employer] EDDC Max Taveras MD MD kdr Antunez, Elena RN RN Marta Woodward Lynsay RN RN ll1 Corrections: (The following items were deleted from the chart) 13:32 12:42 Abdomen Pelvis W Con+CT.RAD.BRZ ordered. [facility] EDDC 16:08 16:06 03/12/2020 16:06 Discharged to Home. Impression: Abdominal and pelvic pain; Acute kdr pancreatitis. Condition is Fair. Forms are Medication Reconciliation Form, Thank You Letter, Antibiotic Education, Prescription Opioid Use. Follow up: Private Physician; When: 2 - 3 days; Reason: If symptoms return, Further diagnostic work-up, Recheck today's complaints, Continuance of care, Re-evaluation by your physician. Problem is an acute exacerbation. Symptoms have improved. kdr 18:48 16:08 Hospitalization Ordered by Alverto Holguin for Inpatient Admission. Preliminary eb diagnosis is Abdominal and pelvic pain; Acute pancreatitis. Bed requested for Telemetry/MedSurg (Inpatient). Status is Inpatient Admission. Condition is Fair. Problem is an acute exacerbation. Symptoms have improved. kdr 20:17 18:48 03/12/2020 16:08 Hospitalization Ordered by Alverto Holguin for Inpatient ea Admission. Preliminary diagnosis is Abdominal and pelvic pain; Acute pancreatitis. Bed requested for Telemetry/MedSurg (Inpatient). Status is Inpatient Admission. Condition is Fair. Problem is an acute exacerbation. Symptoms have improved. eb
--- NOTE | 2020-03-12 16:50 | P.HP ---
Certification for Inpatient Patient admitted to: Observation With expected LOS: <2 Midnights Practitioner: I am a practitioner with admitting privileges, knowledge of patient current condition, hospital course, and medical plan of care. Services: Services provided to patient in accordance with Admission requirements found in Title 42 Section 412.3 of the Code of Federal Regulations Patient History Date of Service: 03/12/20 Reason for admission: Abdominal pain History of Present Illness: 79-year-old woman with a history of hypertensiona, and hypercholesterolemia presented to the emergency department with a complaint of abdominal pain of sudden onset which has been present for 2 day. Patient reports severe abdominal pain, intermittent in nature, last pain episode woke her up from sleep last night and has been present since. She reports nausea but no vomiting. She denied any diarrhea, she denied any fever. She denied any chest pain. Blood work in the emergency department demonstrated significantly elevated lipase. CT abdomen and pelvis reports evidence of mild acute pancreatitis. No gallstones, no evidence of cholecystitis. Patient is placed under observation for further management. Allergies codeine [Codeine] Allergy (Unverified 04/10/16 04:13) Unknown Sulfa (Sulfonamide Antibiotics) Allergy (Unverified 01/02/17 16:42) Unknown hydrocodone [Hydrocodone] Adverse Reaction (Severe, Verified 12/04/11 21:43) NAUSEA/VOMITTING Sulfa (Sulfonamide Allergy (Uncoded 03/22/16 02:25) Unknown Home Medications: Amlodipine Besylate 10 mg PO DAILY 05/22/15 Metformin HCl [Glucophage*] 500 mg PO BIDWM 05/22/15 Multivit,Ther Iron,Ca,FA & Min [Centrum Tablet*] 1 tab PO DAILY 12/23/15 [place]-3 Fatty Acids [Fish Oil] 300 mg PO DAILY 12/23/15 Aspirin [Aspirin EC 81 MG] 81 mg PO DAILY #30 tablet. 12/26/15 Nitroglycerin [Nitrostat*] 0 mg SL UD PRN #30 tab 12/26/15 Rosuvastatin [Crestor*] 40 mg PO BEDTIME 03/22/16 Docusate [Colace Cap*] 100 mg PO DAILY PRN #30 cap 03/28/16 Metoprolol Tartrate [Lopressor*] 50 mg PO BID 6AM 6PM #60 tab 03/28/16 Tramadol HCl [Ultram] 50 mg PO TID PRN #30 tablet 03/28/16 - Past Medical/Surgical History Diabetic: No -: History of TIA -: History of breast cancer -: Hypertension -: Diabetes mellitus type 2 -: Hyperlipidemia -: Coronary artery disease, history of [place] -: Benign brain tumor removed -: Hysterectomy -: Benign brain tumor removed -: Left lower extremity repair, L leg-gold and pins -: Left breast mastectomy -: Back surgery -: Bunion surgery Psychosocial/ Personal History: She is a , has 5 children. She lives by herself - Family History Father -: Stroke, Blood disorders Mother Notes: Murdered Sister -: Other (see notes) Notes: special needs; - Social History Alcohol use: No CD- Drugs: No Caffeine use: Yes Review of Systems Other: Except as documented, all other systems reviewed and negative. Physical Examination - Physical Exam General: Alert, In no apparent distress, Oriented x3 HEENT: Mucous membr. moist/pink Neck: Supple, JVD not distended Respiratory: Clear to auscultation bilaterally, Normal air movement Cardiovascular: No edema, Regular rate/rhythm, Normal S1 S2 Capillary refill: <2 Seconds Gastrointestinal: Normal bowel sounds, Soft and benign, Non-distended, No rebound, No guarding, Tenderness (Epigastric) Musculoskeletal: No swelling, No tenderness Integumentary: No rashes, No erythema Neurological: Normal speech, Normal strength at 5/5 x4 extr, Cranial nerves 3-12 intact - Studies Laboratory Data (last 24 hrs) 03/12/20 11:53: WBC 7.50, Hgb 13.6, Hct 40.6, Plt Count 268 03/12/20 11:53: Sodium 142, Potassium 3.5, BUN 10, Creatinine 1.13, Glucose 135 H, Total Bilirubin 0.6, AST 16, ALT 23, Alkaline Phosphatase 117, Lipase 1263 H Assessment and Plan - Problems (Diagnosis) (1) Acute pancreatitis Current Visit: Yes Status: Acute (2) HTN (hypertension) Onset Date: 12/24/15 Current Visit: No Status: Chronic Qualifiers: (3) Hyperlipidemia Current Visit: No Status: Chronic Qualifiers: - Plan Place under observation. Cause of acute pancreatitis unknown. No gallstones, patient denies alcohol intake. Probably medication-related. Supportive measures with IV hydration. Keep NPO today Monitor and optimize electrolytes. Serial lipase. Hold metformin. Blood pressure readings are high. Continue antihypertensives. - Advance Directives Does patient have a Living Will: No Does patient have a Durable POA for Healthcare: No
[2020-03-12] MEDS ORDERED: ONDANSETRON 4 MG/2 ML VIAL IV PRN (20:33)
[2020-03-12] MEDS ORDERED: FENTANYL CITR 100 MCG/2 ML IV ONE (21:04)
[2020-03-12] MEDS: NA CHLORIDE 0.9% 1,000 ML IV SCH (22:55)
[2020-03-13 00:50] VITALS: BMI 29.1
[2020-03-13] MEDS ORDERED: HEPARIN 5000 UNIT/ML 1 ML VIAL IV SCH (05:00)
[2020-03-13] MEDS ORDERED: HEPARIN/D5W 25,000 UNIT/500 ML BAG IV SCH (05:00)
[2020-03-13 05:47] LABS: Absolute Lymphocytes (CBC) 1.7 K/uL (0.7-4.9); Basophils % 0.3 % (0-1.3); Hematocrit 35.9 % (36.0-45.0); Lymphocytes % 22.5 % (15.3-44.8); MPV 9.4 fL (7.6-11.3); RBC Red Blood Cell Count 4.16 M/uL (3.86-4.86)
[2020-03-13 06:05] LABS: Albumin 2.9 g/dL (3.4-5.0); Bilirubin Total 0.5 mg/dL (0.2-1.0); Magnesium 2.1 mg/dL (1.8-2.4); Phosphorus 3.4 mg/dL (2.5-4.9); Potassium 3.1 mmol/L (3.5-5.1); Protein, Total 6.7 g/dL (6.4-8.2)
[2020-03-13] MEDS: KCL 20 MEQ/100 mL IVPB 20 MEQ/100 ML BAG IV SCH ×2 (10:00→10:30)
[2020-03-13] MEDS: ENOXAPARIN 40 MG/0.4 ML SQ SCH (10:30)
--- NOTE | 2020-03-13 11:25 | P.PN ---
Subjective Date of Service: 03/13/20 Chief Complaint: Abdominal pain Patient states her abdominal pain is much better. No nausea or vomiting. Lipase trended down only slightly. Physical Examination - Vital Signs Temperature: 97.9 F Blood Pressure: 184/88 Pulse: 77 Respirations: 18 Pulse Ox (%): 95 - Physical Exam General: Alert, In no apparent distress HEENT: Mucous membr. moist/pink Respiratory: Clear to auscultation bilaterally, Normal air movement Cardiovascular: No edema, Regular rate/rhythm, Normal S1 S2 Gastrointestinal: Normal bowel sounds, Soft and benign, Non-distended, Tenderness (Mild tenderness in the epigastrium) Musculoskeletal: No swelling, No tenderness Integumentary: No rashes Neurological: Other (No focal motor deficit) - Studies Laboratory Data (last 24 hrs) 03/12/20 11:53: WBC 7.50, Hgb 13.6, Hct 40.6, Plt Count 268 03/12/20 11:53: Sodium 142, Potassium 3.5, BUN 10, Creatinine 1.13, Glucose 135 H, Total Bilirubin 0.6, AST 16, ALT 23, Alkaline Phosphatase 117, Lipase 1263 H Assessment And Plan - Current Problems (Diagnosis) (1) Acute pancreatitis Current Visit: Yes Status: Acute (2) HTN (hypertension) Onset Date: 12/24/15 Current Visit: No Status: Chronic Qualifiers: (3) Hyperlipidemia Current Visit: No Status: Chronic Qualifiers: - Plan Cause of acute pancreatitis is unknown. No gallstones, patient denies alcohol intake. Normal triglyceride level. Continue supportive measures with IV hydration. Start clear liquid diet. Monitor and optimize electrolytes. Check daily lipase. Hold metformin. Continue antihypertensives.
[2020-03-13] MEDS: NA CHLORIDE 0.9% 1,000 ML IV SCH ×3 (12:33→22:28)
[2020-03-13] MEDS ORDERED: POTASSIUM CL SA 10 MEQ TAB PO ONE ×2 (15:00→22:29)
[2020-03-13] MEDS ORDERED: KCL 20 MEQ/100 mL IVPB 20 MEQ/100 ML BAG IV SCH (15:00)
[2020-03-13] MEDS: ISOSORBIDE MONO SR 30 MG TAB PO SCH (16:50)
[2020-03-13] MEDS: METOPROLOL TAR 50 MG TAB PO SCH ×2 (16:51→21:00)
[2020-03-13] MEDS: AMLODIPINE 10 MG TAB PO SCH (16:52)
[2020-03-13] MEDS: ROSUVASTATIN 10 MG TAB PO SCH (22:28)
[2020-03-13 23:39] LABS: Urine Appearance CLEAR; Urine Bilirubin NEGATIVE (NEG); Urine Blood NEGATIVE (NEG); Urine Color YELLOW; Urine Glucose NEGATIVE (NEG); Urine Protein NEGATIVE (NEG); Urine pH 6.5 (5.0-7.0)
[2020-03-14 00:01] LABS: Urine Microscopic Reflex ORDER UMIC
[2020-03-14 00:11] LABS: Urine Bacteria LOADED /HPF (<20); Urine RBC <5 /HPF (NONE SEEN)
[2020-03-14] MEDS: NA CHLORIDE 0.9% 1,000 ML IV SCH ×3 (05:18→20:33)
[2020-03-14 06:18] LABS: BUN Blood Urea Nitrogen 10 mg/dL (7-18); Bicarbonate 22 mmol/L (21-32); Glucose Level 97 mg/dL (74-106); Lipase 761 U/L (73-393); Potassium 3.3 mmol/L (3.5-5.1); Sodium Level 144 mmol/L (136-145)
[2020-03-14] MEDS ORDERED: POTASSIUM CL SA 10 MEQ TAB PO ONE ×2 (09:00→16:03)
[2020-03-14] MEDS: ENOXAPARIN 40 MG/0.4 ML SQ SCH (09:05)
[2020-03-14] MEDS: CEFTRIAXONE/SWI 1gm 1 GM/10 ML SYR IVP SCH (09:05)
[2020-03-14] MEDS: CLOPIDOGREL 75 MG TABLET PO SCH (09:06)
[2020-03-14] MEDS: ISOSORBIDE MONO SR 30 MG TAB PO SCH (09:06)
[2020-03-14] MEDS: AMLODIPINE 10 MG TAB PO SCH (09:06)
[2020-03-14] MEDS: ASPIRIN EC 81 MG TAB PO SCH (09:06)
[2020-03-14] MEDS: METOPROLOL TAR 50 MG TAB PO SCH ×2 (09:06→20:30)
--- NOTE | 2020-03-14 10:49 | P.PN ---
Subjective Date of Service: 03/14/20 Chief Complaint: Abdominal pain Patient states her abdominal pain is much better. No nausea or vomiting. Lipase level trended down significantly. She is tolerating liquid diet. Physical Examination - Vital Signs Temperature: 97.8 F Blood Pressure: 172/77 Pulse: 68 Respirations: 19 Pulse Ox (%): 98 - Physical Exam General: Alert, In no apparent distress Respiratory: Clear to auscultation bilaterally, Normal air movement Cardiovascular: No edema, Regular rate/rhythm, Normal S1 S2 Gastrointestinal: Soft and benign, Non-distended, No tenderness Musculoskeletal: No swelling Integumentary: No rashes Neurological: Other (No focal motor deficit) Assessment And Plan - Current Problems (Diagnosis) (1) Acute pancreatitis Current Visit: Yes Status: Acute (2) HTN (hypertension) Onset Date: 12/24/15 Current Visit: No Status: Chronic Qualifiers: (3) Hyperlipidemia Current Visit: No Status: Chronic Qualifiers: - Plan Cause of acute pancreatitis is unknown. No gallstones, patient denies alcohol intake. Normal triglyceride level. It could be related to Metformin. Her metformin dose was recently changed from 500 mg b.i.d. to 1000 mg once a day. Continue supportive measures with IV hydration. Continue clear liquid diet. Monitor and optimize electrolytes. Check daily lipase. Continue antihypertensives.
[2020-03-14] MEDS ORDERED: TRAMADOL HCL 50 MG TAB PO PRN (14:41)
[2020-03-14] MEDS: ROSUVASTATIN 10 MG TAB PO SCH (20:30)
[2020-03-15] MEDS: NA CHLORIDE 0.9% 1,000 ML IV SCH ×2 (00:10→08:08)
[2020-03-15 06:36] LABS: BUN Blood Urea Nitrogen 5 mg/dL (7-18); Bicarbonate 22 mmol/L (21-32); Glucose Level 107 mg/dL (74-106); Lipase 468 U/L (73-393); Potassium 3.2 mmol/L (3.5-5.1); Sodium Level 143 mmol/L (136-145)
[2020-03-15] MEDS: CLOPIDOGREL 75 MG TABLET PO SCH (08:06)
[2020-03-15] MEDS: ISOSORBIDE MONO SR 30 MG TAB PO SCH (08:06)
[2020-03-15] MEDS: AMLODIPINE 10 MG TAB PO SCH (08:06)
[2020-03-15] MEDS: METOPROLOL TAR 50 MG TAB PO SCH (08:06)
[2020-03-15] MEDS: ASPIRIN EC 81 MG TAB PO SCH (08:07)
[2020-03-15] MEDS: ENOXAPARIN 40 MG/0.4 ML SQ SCH (08:07)
[2020-03-15] MEDS: CEFTRIAXONE/SWI 1gm 1 GM/10 ML SYR IVP SCH (08:07)
[2020-03-15] MEDS ORDERED: POTASSIUM 25 MEQ EFFERV TAB PO ONE (09:00)
[2020-03-15 09:55] VITALS: O2SAT 91
--- NOTE | 2020-03-15 10:01 | P.DS ---
Admission Date: 03/13/20 Discharge Date: 03/15/20 Disposition: ROUTINE DISCHARGE Discharge Condition: FAIR Reason for Admission: Abdominal pain - Problems (1) Acute pancreatitis Current Visit: Yes Status: Acute (2) HTN (hypertension) Onset Date: 12/24/15 Current Visit: No Status: Chronic Qualifiers: (3) Hyperlipidemia Current Visit: No Status: Chronic Qualifiers: Brief History of Present Illness: 79-year-old woman with a history of hypertensiona, and hypercholesterolemia presented to the emergency department with a complaint of abdominal pain of sudden onset which has been present for 2 day. Patient reports severe abdominal pain, intermittent in nature, last pain episode woke her up from sleep last night and has been present since. She reports nausea but no vomiting. She denied any diarrhea, she denied any fever. She denied any chest pain. Blood work in the emergency department demonstrated significantly elevated lipase. CT abdomen and pelvis reports evidence of mild acute pancreatitis. No gallstones, no evidence of cholecystitis. Patient is placed under observation for further management. Hospital Course: Patient admitted to the medical floor and treated supportively with IV fluids, antiemetics and IV opiates p.r.n. for pain. Her lipase level was monitored and it improved significantly, now almost close to normal. Her abdominal pain resolved with treatment. Patient noted to have UTI. Urine culture was mixed growth. She received a couple of doses of IV Rocephin for the UTI. Her diet was advanced to soft diet which she tolerated. Patient has clinically improved, elevated lipase almost down to normal. She is deemed clinically stable for discharge. Vital Signs/Physical Exam: Temp Pulse Resp BP Pulse Ox 97.7 F 65 16 168/80 H 97 03/15/20 08:00 03/15/20 08:00 03/15/20 08:00 03/15/20 08:00 03/15/20 08:00 General: Alert, In no apparent distress, Oriented x3 HEENT: Mucous membr. moist/pink Neck: Supple, JVD not distended Respiratory: Clear to auscultation bilaterally, Normal air movement Cardiovascular: No edema, Regular rate/rhythm, Normal S1 S2 Gastrointestinal: Normal bowel sounds, Soft and benign, Non-distended, No tenderness Musculoskeletal: No swelling Integumentary: No rashes Laboratory Data at Discharge: WBC 7.30 K/uL (4.3-10.9) 03/13/20 05:29 Hgb 12.1 g/dL (12.0-15.0) 03/13/20 05:29 Hct 35.9 % (36.0-45.0) L 03/13/20 05:29 Plt Count 233 K/uL (152-406) 03/13/20 05:29 Sodium 143 mmol/L (136-145) 03/15/20 05:55 Potassium 3.2 mmol/L (3.5-5.1) L 03/15/20 05:55 BUN 5 mg/dL (7-18) L 03/15/20 05:55 Creatinine 0.59 mg/dL (0.55-1.3) 03/15/20 05:55 Glucose 107 mg/dL (74-106) H 03/15/20 05:55 Phosphorus 3.4 mg/dL (2.5-4.9) 03/13/20 05:29 Magnesium 2.1 mg/dL (1.8-2.4) 03/13/20 05:29 Total Bilirubin 0.5 mg/dL (0.2-1.0) 03/13/20 05:29 AST 16 U/L (15-37) 03/13/20 05:29 ALT 17 U/L (12-78) 03/13/20 05:29 Alkaline Phosphatase 93 U/L (45-117) 03/13/20 05:29 Troponin I Cancelled 03/13/20 05:29 Triglycerides 80 mg/dL (<150) 03/13/20 05:29 Cholesterol 130 mg/dL (<200) 03/13/20 05:29 HDL Cholesterol 66 mg/dL (40-60) H 03/13/20 05:29 Cholesterol/HDL Ratio 1.97 03/13/20 05:29 Lipase 468 U/L (73-393) H 03/15/20 05:55 Home Medications: Amlodipine Besylate 10 mg PO DAILY 05/22/15 Metformin HCl [Glucophage*] 500 mg PO DAILY 05/22/15 Aspirin [Aspirin EC 81 MG] 81 mg PO DAILY #30 tablet. 12/26/15 Rosuvastatin [Crestor*] 40 mg PO BEDTIME 03/22/16 Clopidogrel Bisulfate [Plavix*] 75 mg PO DAILY 03/13/20 Isosorbide Mononitrate [Isosorbide Mononitrate ER] 30 mg PO DAILY 03/13/20 Metoprolol Tartrate [Lopressor*] 50 mg PO BID 03/13/20 Diet: ADA (Soft diet for the next 3 days and then advance as tolerated) Followup: Fco Cabrera DO [Primary Care Provider] - 1-2 Weeks Time spent managing pt's care (in minutes): 33
[2020-03-15] MEDS ORDERED: POTASSIUM CL SA 10 MEQ TAB PO ONE (11:00)
[2020-03-15 13:08] VITALS: BP 141/73; TEMP 97.3
== END 2020-03-15 13:36 | disposition home or self-care (01) | DRG 439 ==
LOC: ER 10:10 → INTOOBSV 15:10 → ERHOLD 15:10 → OBSVTOIN 15:10 → 2ND 20:00 → OBSVTOIN 03-13 11:25
PROVIDERS: ADMIT Internal Medicine; ATTEND Internal Medicine
DX: K85.90 Acute pancreatitis without necrosis or infection, unspecified (principal); N39.0 Urinary tract infection, site not specified; I10 Essential (primary) hypertension; E11.9 Type 2 diabetes mellitus without complications; I25.10 Atherosclerotic heart disease of native coronary artery without angina pectoris; E78.5 Hyperlipidemia, unspecified; I25.2 Old myocardial infarction; Z85.3 Personal history of malignant neoplasm of breast; Z90.710 Acquired absence of both cervix and uterus; Z79.84 Long term (current) use of oral hypoglycemic drugs; Z79.02 Long term (current) use of antithrombotics/antiplatelets; Z79.82 Long term (current) use of aspirin; Z79.899 Other long term (current) drug therapy; Z86.73 Personal history of transient ischemic attack (TIA), and cerebral infarction without residual deficits; Z88.5 Allergy status to narcotic agent; Z88.1 Allergy status to other antibiotic agents; Z90.12 Acquired absence of left breast and nipple; Z60.2 Problems related to living alone; Z20.822 Contact with and (suspected) exposure to COVID-19
CPT/HCPCS: 36415; 74176; 80048; 80053; 80061; 80076; 81003; 81015; 83690; 83735; 84100; 84132; 85025; 87086; 87088; 94760; 99285; J0696; J1650; J3480; J7030; U0003

== ENCOUNTER 2022-11-30 15:53 | Inpatient (IN) | payer OTHER ==
--- OUTSIDE RECORDS SUMMARY | 2022-11-30 15:59 | XMS REPORT | Continuity of Care Document ---
:1940 Author Organization [facility] t Address [address] [facility] [address] [place] [address] Care Team Providers Name Role Phone Jeremiah Rodriguez Primary Care Physician RodriguezJeremiah Attending Clinician Unavailable Felicita Duran Attending Clinician Unavailable [email or web address] Attending Clinician Unavailable Uyen Dominguez MD Attending Clinician WASHINGTON SIMMONS Attending Clinician Unavailable UYEN DOMINGUEZ Attending Clinician Unavailable Doctor Unassigned, [place] Attending Clinician Unavailable CHRISTINA LAWTON Attending Clinician Unavailable Eddie DEVLIN Attending Clinician Unavailable Eddie Lehman Attending Clinician Christina Lawton MD Attending Clinician [email or web address] Admitting Clinician Unavailable UYEN DOMINGUEZ Admitting Clinician Unavailable CHRISTINA LWATON Admitting Clinician Unavailable Payers Payer Name Policy Type Policy Number Effective Date Expiration Date S ourkimberli HUMANA [id number] (MEDICARE REPLACEMENT/ADV ANTAGE - PPO) [employer] [id number] 2020spring 00:00:00 [employer] MEDICARE 53 [id number] 2022 Common Sp magalis 00:00:00 [facility] C1 [id number] Common Sp magalis ing Medicare - [facility] [employer] C1 [id number] Common Sp magalis ing Medicare - [facility] Problems Condition Condition Condition Status Onset Resolution Last Treating Co mments Source Name Details Category Date Date Treatment Clinician Date 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 Added automatic ally from request for surgery [id number] SOB SOB Disease Active Methodi (shortness (shortness 6-04 st of breath) of breath) 00:00: Ho spita 00 l Bilateral Bilateral Disease Active Met hodi carotid carotid 6-04 st bruits bruits 00:00: Hospita 00 l Encounter Encounter Disease Active Met hodi to to 4-16 st establish establish 00:00: Hosp lien care care 00 l Coronary Coronary Disease Active Metho di artery artery 4-16 st disease disease 00:00: Hospita involving involving 00 l nenana nenana coronary coronary artery of artery of nenana nenana heart heart without without angina angina pectoris pectoris TIA TIA Disease Active Methodi (transient (transient 4-16 st ischemic ischemic 00:00: Hospit a attack) attack) 00 l No known No known Disease Unive rs active active ity of problems problems [facility] 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[facility] stage 3A disease [facility] [id number] Breast Problem Common implant Spirit status - [facility] [id number] Other Problem Common obesity Spirit due to - CHI excess [facility] Low Decreased Problem Common vision, vision in Spirit both eyes both eyes - CH I (disorder) [facility] [id number] 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 - CHI l [facility] Type II Uncontroll Problem Comm on diabetes ed type 2 Spiri t mellitus diabetes - [facility] without mellitus St complicati without [facility] complicati Medica [facility] on, Center without long-term current use of insulin Low back Low back Problem Commo n pain pain, Spirit unspecifie - CHI d [facility] Hyperlipid Hyperlipid Problem C ommon emia emia, Spirit unspecifie - CHI d hyperlipid [facility] emia [facility] Hypertensi Hypertensi Problem C ommon on on, Spirit unspecifie - CHI d [facility] [id number] Bilateral Problem Comm on hearing Spirit loss, - CHI unspecifie [facility] hearing [facility] loss [facility] [id number] Dysphagia, Problem Com mon unspecifie [facility] d type - [facility] [id number] Primary Problem Common osteoarthr Spirit itis, left - CHI shoulder [facility] [id number] History of Problem Co mmon breast Spirit cancer - [facility] [id number] Pain in Problem Common right Spirit shoulder [facility] [id number] Microalbum Problem Co mmon inuria Spirit [facility] [id number] Elevated Problem Comm on serum Spirit creatinine - [facility] [id number] Essential Problem Comm on hypertensi Spirit on - [facility] [id number] Tear of Problem Commo n left Spirit supraspina - [facility] tus tendon [facility] [id number] Impingemen Problem C ommon 39[address] t syndrome Spirit of left - CHI shoulder [facility] [id number] Sprain of Problem Co mmon 04 left Spirit rotator - CHI cuff [facility] Medical [facility] [id number] Status Problem Common post Spirit coronary - [facility] artery [facility] [id number] Impingemen Problem C ommon [id number] t syndrome Spiri t of right - CHI shoulder [facility] [id number] Coronary Problem Com mon 107 artery Spirit disease - CHI involving nenana [facility] coronary Medical artery of Center nenana heart without angina pectoris [id number] Peripheral Problem Co mmon edema Spirit - CHI [facility] [id number] Body mass Problem Com mon index Spirit [BMI] - CHI 30.0-30.9, [facility] 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 [facility] [id number] Elevated Problem Comm on alkaline Spirit phosphatas - CHI e level [facility] Age-relate Osteoporos Problem C ommon d is without Spirit osteoporos current - CHI is pathologic [facility] fracture, Medical unspecifie Center d osteoporos is type [id number] Other Problem Common chronic Spirit pain - CHI [facility] [id number] Hypokalemi Problem Com mon a Spirit - CHI [facility] [id number] Cataract, Problem Com mon unspecifie [facility] d cataract - [facility], [facility] [id number] Encopresis Problem Co mmon Spirit - CHI [facility] [id number] Hypercalce Problem Com mon cecy Spirit - CHI [facility] [id number] Type 2 Problem Common diabetes [facility] mellitus - [facility] with other [facility] kidney Medical complicati Center on Allergies, Adverse Reactions, Alerts Allergy Allergy Status Severity Reaction(s) Onset Inactive Treating Comm ents Source Name Type Date Date Clinician Sulfa Propensi Active Anaphylaxis Uni vers (Sulfona ty to 05-21 ity of mide adverse 00:00: [place] Antibiot reaction 00 Medica l ics) s Branch CODEINE DRUG Active ITCHING Univers INGREDI -09 ity of 00:00: [place] 00 Medical Branch SULFA Drug Active Anaphylaxis Unive rs (SULFONA Class - ity of MIDE 00:00: [place] ANTIBIOT 00 Medical ICS) Branch Sulfa Propensi Active Other (See Severe Meth thom (Sulfona ty to Comments) 7-[address] mide adverse 00:00: Hospita Antibiot reaction 00 l ics) s to drug Codeine Propensi Active Itching Severe Method i ty to 4-[address] adverse 00:00: Hospita reaction 00 l s to drug Codeine Codeine Active Unknown [facility] Social History Social Habit Start Date Stop Date Quantity Comments Source Sexual orientation [facility] Hospital Gender identity [facility] [place] [facility] History of Tobacco Common Spirit - Use [facility] Exposure to 2022-06-11 2022-06-21 Not sure University of SARS-CoV-2 (event) 00:00:00 14:15:00 [facility] Tobacco use and 2020-05-21 2020-05-21 Smokeless Universit y of exposure 00:00:00 00:00:00 tobacco non-user [facility] Alcohol intake 2018-11-26 2018-11-26 Ex-drinker [facility] 00:00:00 00:00:00 (finding) Hospital History of Social 2018-10-03 2018-10-[address] function 00:00:00 00:00:00 Hospital Sex Ass[birth year] At [birth year] [facility] 00:00:00 00:00:00 Hospital Smoking Status Start Date Stop Date Source Never Smoker [facility] Medications Ordered Filled Start Stop Current Ordering Indication Dosage Frequency Signature Comments Components Source Medication Medication Date Date Medication? Clinician (SIG) Name Name losartan Yes [id number] 100mg Take 1 Un alhaji 100 mg 6-30 tablet by ity of tablet 00:00: mouth in [place] 00 the Medical morning. Branch losartan Yes [id number] 100mg Take 1 Un alhaji 100 mg 6-30 tablet by ity of tablet 00:00: mouth in [place] 00 the Medical morning. Branch amLODIPine 2022-2022- No 10mg Take 10 mg Univers 10 mg 5-10 05-10 by mouth ity of tablet 14:45: 00:00 daily. [place] 57 :00 Medical Branch amLODIPine 2022-0 2022- No 10mg Take 10 mg Univers 10 mg 5-10 05-10 by mouth ity of tablet 14:45: 00:00 daily. [place] 57 :00 [facility] Branch isosorbide 2022-0 2022- No 30mg Take 30 mg Univers mononitrate 5-10 05-10 by mouth ity of 30 mg 24 hr 14:38: 00:00 daily. [place] as tablet 42 :00 Medical Branch isosorbide 3-0 2022- No 30mg Take 30 mg Univers mononitrate 5-10 05-10 by mouth ity of 30 mg 24 hr 14:38: 00:00 daily. [place] as tablet 42 :00 Medical Branch amLODIPine 2022-0 Yes [id number] 5mg Take 1 U nivers 5 mg tablet 5-10 tablet by ity of 00:00: mouth in [place] the morning. Branch losartan 2022-0 Yes [id number] 100mg Take 1 Un alhaji 100 mg 5-10 tablet by ity of tablet 00:00: mouth in [place] the Medical morning. Branch amLODIPine 2022-0 Yes [id number] 5mg Take 1 U nivers 5 mg tablet 5-10 tablet by ity of 00:00: mouth in [place] the morning. Branch losartan 2022-0 Yes [id number] 100mg Take 1 Un alhaji 100 mg 5-10 tablet by ity of tablet 00:00: mouth in [place] the Medical morning. Branch amLODIPine 2022-0 Yes [id number] 5mg Take 1 U nivers 5 mg tablet 5-10 tablet by ity of 00:00: mouth in [place] the Medical morning. Branch losartan 2022-0 Yes [id number] 100mg Take 1 Un alhaji 100 mg 5-10 tablet by ity of tablet 00:00: mouth in [place] the Medical morning. Branch amLODIPine 2022-0 Yes [id number] 5mg Take 1 U nivers 5 mg tablet 5-10 tablet by ity of 00:00: mouth in [place] the Medical morning. Branch amLODIPine 2022-0 Yes [id number] 5mg Take 1 U nivers 5 mg tablet 5-10 tablet by ity of 00:00: mouth in [place] the Medical morning. Branch losartan 2022-0 3- No [id number] 100mg Take 1 U nivers 100 mg 5-10 06-30 tablet by ity of tablet 00:00: 00:00 mouth in [place] 00 :00 the Medical morning. Branch cephALEXin 2021-0 2021- No 500mg 500 mg, Un alhaji (KEFLEX) 09-0222 Oral, ity of capsule 500 22:30: 21:35 [place] 1 [place] :[place] dose, On Medical Fri Branch 09/02/21 at 1730, EVELINA
Re ason for Anti-Infec tive: Documented Infection< br>Documen john paul Infection Site: Urine
D uration of Therapy: 10 days loperamide 0 2021- No 4mg 4 mg, Unive rs (IMODIUM 09-02 Oral, ity of A-D) 21:45: 20:48 ONCE, 1 [place] capsule 4 00 :00 dose, On Medica l mg Fri Branch 09/02/21 at 1645, Routine naproxen 2021-0 Yes [id number] 500mg Take 1 U nivers (NAPROSYN) 7-22 tablet by ity of 500 mg 00:00: mouth in [place] tablet 00 the Medical morning Branch and 1 tablet in the evening. Take with meals. benzonatate 2021-0 Yes [id number] 100mg Take 1 Univers 100 mg 7-22 capsule by ity of capsule 00:00: mouth 3 [place] [address] (three) Medical times [place] daily as needed for Cough. naproxen 2021-0 Yes [id number] 500mg Take 1 U nivers (NAPROSYN) 7-22 tablet by ity of 500 mg 00:00: mouth in [place] tablet 00 the Medical morning Branch and 1 tablet in the evening. Take with meals. benzonatate 2021-0 Yes [id number] 100mg Take 1 Univers 100 mg 7-22 capsule by ity of capsule 00:00: mouth 3 [place] 00 (three) Medical times Branch daily as needed for Cough. naproxen 2021-0 Yes [id number] 500mg Take 1 U nivers (NAPROSYN) 7-22 tablet by ity of 500 mg 00:00: mouth in [place] tablet 00 the Medical morning Branch and 1 tablet in the evening. Take with meals. benzonatate 2021-0 Yes [id number] 100mg Take 1 Univers 100 mg 7-22 capsule by ity of capsule 00:00: mouth 3 [place] 00 (three) Medical times [place] daily as needed for Cough. naproxen 2021-0 Yes [id number] 500mg Take 1 U nivers (NAPROSYN) 7-22 tablet by ity of 500 mg 00:00: mouth in [place] tablet 00 the Medical morning Branch and 1 tablet in the evening. Take with meals. benzonatate 2021-0 Yes [id number] 100mg Take 1 Univers 100 mg 7-22 capsule by ity of capsule 00:00: mouth 3 [place] ([facility]) Medical times Branch daily as needed for Cough. naproxen 2022-0 Yes [id number] 500mg Take 1 U nivers (NAPROSYN) 7-22 tablet by ity of 500 mg 00:00: mouth in [place] tablet 00 the Medical morning Branch and 1 tablet in the evening. Take with meals. benzonatate 2-0 Yes [id number] 100mg Take 1 Univers 100 mg 7-22 capsule by ity of capsule 00:00: mouth 3 [place] ([facility]) Medical times [place] daily as needed for Cough. naproxen 2-0 Yes [id number] 500mg Take 1 U nivers (NAPROSYN) 7-22 tablet by ity of 500 mg 00:00: mouth in [place] tablet 00 the Medical morning Branch and 1 tablet in the evening. Take with meals. benzonatate 2021-0 Yes [id number] 100mg Take 1 Univers 100 mg 7-22 capsule by ity of capsule 00:00: mouth 3 [place] ([facility]) Medical times [place] daily as needed for Cough. naproxen 2021-0 Yes [id number] 500mg Take 1 U nivers (NAPROSYN) 7-22 tablet by ity of 500 mg 00:00: mouth in [place] tablet 00 the Medical morning Branch and 1 tablet in the evening. Take with meals. benzonatate 2021-0 Yes [id number] 100mg Take 1 Univers 100 mg 7-22 capsule by ity of capsule 00:00: mouth 3 [place] ([facility]) Medical times [place] daily as needed for Cough. naproxen 2-0 Yes [id number] 500mg Take 1 U nivers (NAPROSYN) 7-22 tablet by ity of 500 mg 00:00: mouth in [place] tablet 00 the Medical morning Branch and 1 tablet in the evening. Take with meals. benzonatate 2-0 Yes [id number] 100mg Take 1 Univers 100 mg 7-22 capsule by ity of capsule 00:00: mouth 3 [place] [address] ([facility]) Medical times [place] daily as needed for Cough. cephALEXin 2-0 2021- No [id number] 500mg Take 1 Univers (KEFLEX) 7-22 08-02 capsule by ity of 500 mg 00:00: 04:59 mouth in [place] capsule 00 :00 the Medical morning Branch and 1 capsule at noon and 1 capsule in the evening. Do all this for 10 days. carvediloL 2022-0 Yes [id number] 12.5mg Take 1 Univers 12.5 mg 6-14 tablet by ity of tablet 00:00: mouth (two) Medical times Branch daily with meals. carvediloL 2022-0 Yes [id number] 12.5mg Take 1 Univers 12.5 mg 6-14 tablet by ity of tablet 00:00: mouth (two) Medical times Branch daily with meals. carvediloL 2022-0 Yes [id number] 12.5mg Take 1 Univers 12.5 mg 6-14 tablet by ity of tablet 00:00: mouth (two) Medical times Branch daily with meals. carvediloL 2022-0 Yes [id number] 12.5mg Take 1 Univers 12.5 mg 6-14 tablet by ity of tablet 00:00: mouth (two) Medical times Branch daily with meals. carvediloL 2022-0 Yes [id number] 12.5mg Take 1 Univers 12.5 mg 6-14 tablet by ity of tablet 00:00: mouth (two) Medical times Branch daily with meals. carvediloL 2022-0 Yes [id number] 12.5mg Take 1 Univers 12.5 mg 6-14 tablet by ity of tablet 00:00: mouth (two) Medical times Branch daily with meals. carvediloL 2022-0 Yes [id number] 12.5mg Take 1 Univers 12.5 mg 6-14 tablet by ity of tablet 00:00: mouth (two) Medical times Branch daily with meals. carvediloL 2022-0 Yes [id number] 12.5mg Take 1 Univers 12.5 mg 6-14 tablet by ity of tablet 00:00: mouth (two) Medical times Branch daily with meals. carvediloL 2022-0 Yes [id number] 12.5mg Take 1 Univers 12.5 mg 6-14 tablet by ity of tablet 00:00: mouth (two) Medical times Branch daily with meals. carvediloL 2022-0 Yes [id number] 12.5mg Take 1 Univers 12.5 mg 6-14 tablet by ity of tablet 00:00: mouth 2 [place] 00 (two) Medical times Branch daily with meals. rosuvastati 2-0 Yes 40mg Take 40 mg Univers n 40 mg 4-08 by mouth ity of tablet 10:38: at [place] [address] bedtime. Medical Branch rosuvastati 2022-0 Yes 40mg Take 40 mg Univers n 40 mg 4-08 by mouth ity of tablet 10:38: at [place] 05 bedtime. Medical Branch rosuvastati 2022-0 Yes 40mg Take 40 mg Univers n 40 mg 4-08 by mouth ity of tablet 10:38: at [place] [address] bedtime. Medical Branch rosuvastati 2-0 Yes 40mg Take 40 mg Univers n 40 mg 4-08 by mouth ity of tablet 10:38: at [place] [address] bedtime. Medical Branch rosuvastati 2-0 Yes 40mg Take 40 mg Univers n 40 mg 4-08 by mouth ity of tablet 10:38: at [place] [address] bedtime. Medical Branch rosuvastati 2-0 Yes 40mg Take 40 mg Univers n 40 mg 4-08 by mouth ity of tablet 10:38: at [place] [address] bedtime. Medical Branch rosuvastati 2-0 Yes 40mg Take 40 mg Univers n 40 mg 4-08 by mouth ity of tablet 10:38: at [place] [address] bedtime. Medical Branch rosuvastati 2022-0 Yes 40mg Take 40 mg Univers n 40 mg 4-08 by mouth ity of tablet 10:38: at [place] [address] bedtime. Medical Branch rosuvastati 2022-0 Yes 40mg Take 40 mg Univers n 40 mg 4-08 by mouth ity of tablet 10:38: at [place] 05 bedtime. Medical Branch rosuvastati 2022-0 Yes 40mg Take 40 mg Univers n 40 mg 4-08 by mouth ity of tablet 10:38: at [place] [address] bedtime. Medical Branch rosuvastati 2022-0 Yes 40mg Take 40 mg Univers n 40 mg 4-08 by mouth ity of tablet 10:38: at [place] [address] bedtime. Medical Branch rosuvastati 2022-0 Yes 40mg Take 40 mg Univers n 40 mg 4-08 by mouth ity of tablet 10:38: at [place] 05 bedtime. Medical Branch carvediloL 2021-0 Yes [id number] 12.5mg Take 1 Univers 12.5 mg 4-08 tablet by ity of tablet 00:00: mouth 2 [place] 00 (two) Medical times Branch daily with meals. carvediloL 2021-0 Yes [id number] 12.5mg Take 1 Univers 12.5 mg 4-08 tablet by ity of tablet 00:00: mouth 2 [place] 00 (two) Medical times Branch daily with meals. carvediloL 2021-0 2022- No [id number] 12.5mg Take 1 Univers 12.5 mg 4-08 06-14 tablet by ity of tablet 00:00: 00:00 mouth 2 [place] 00 :00 (two) Medical times Branch daily with meals. isosorbide 2021-0 Yes 30mg Take 30 mg U nivers mononitrate 4-06 by mouth ity of 30 mg 24 hr 14:42: [place] tablet 40 [facility] metformin 2021-0 Yes 500mg Take 500 Uni vers ER 500 mg 4-06 mg by ity of 24 hr 14:42: mouth [place] tablet 40 daily with Medical breakfast. Branch clopidogreL 2021-0 Yes 75mg Take 75 mg Univers 75 mg 4-06 by mouth ity of tablet 14:42: daily. [address] aspirin 81 2021-0 Yes 81mg Take 81 mg U nivers mg chewable 4-06 by mouth ity of tablet 14:42: daily. [address] amLODIPine 2021-0 Yes 10mg Take 10 mg U nivers 10 mg 4-06 by mouth ity of tablet 14:42: daily. [address] isosorbide 2021-0 Yes 30mg Take 30 mg U nivers mononitrate 4-06 by mouth ity of 30 mg 24 hr 14:42: [place]. [place] tablet 40 [facility] Branch metformin 2-0 Yes 500mg Take 500 Uni vers ER 500 mg 4-06 mg by ity of 24 hr 14:42: mouth [place] tablet 40 daily with Medical breakfast. Branch clopidogreL 2021-0 Yes 75mg Take 75 mg Univers 75 mg 4-06 by mouth ity of tablet 14:42: daily. [address] aspirin 81 2021-0 Yes 81mg Take 81 mg U nivers mg chewable 4-06 by mouth ity of tablet 14:42: daily. [address] amLODIPine 2-0 Yes 10mg Take 10 mg U nivers 10 mg 4-06 by mouth ity of tablet 14:42: daily. [address] isosorbide 2-0 Yes 30mg Take 30 mg U nivers mononitrate 4-06 by mouth ity of 30 mg 24 hr 14:42: [place] [address] [place] [address] metformin 2021-0 Yes 500mg Take 500 Uni vers ER 500 mg 4-06 mg by ity of 24 hr 14:42: mouth [place] tablet 40 daily with Medical breakfast. Branch clopidogreL 2021-0 Yes 75mg Take 75 mg Univers 75 mg 4-06 by mouth ity of tablet 14:42: daily. [address] aspirin 81 2021-0 Yes 81mg Take 81 mg U nivers mg chewable 4-06 by mouth ity of tablet 14:42: daily. [address] amLODIPine 2021-0 Yes 10mg Take 10 mg U nivers 10 mg 4-06 by mouth ity of tablet 14:42: daily. [address] isosorbide 2-0 Yes 30mg Take 30 mg U nivers mononitrate 4-06 by mouth ity of 30 mg 24 hr 14:42: daily. [place] s tablet [address] [place] [address] metformin 2021-0 Yes 500mg Take 500 Uni vers ER 500 mg 4-06 mg by ity of 24 hr 14:42: mouth [place] tablet 40 daily with Medical breakfast. Branch clopidogreL 2-0 Yes 75mg Take 75 mg Univers 75 mg 4-06 by mouth ity of tablet 14:42: daily. [address] aspirin 81 2-0 Yes 81mg Take 81 mg U nivers mg chewable 4-06 by mouth ity of tablet 14:42: daily. [address] amLODIPine 2-0 Yes 10mg Take 10 mg U nivers 10 mg 4-06 by mouth ity of tablet 14:42: daily. [address] isosorbide 2-0 Yes 30mg Take 30 mg U nivers mononitrate 4-06 by mouth ity of 30 mg 24 hr 14:42: [place]. [place] [address] [place] [address] metformin 2-0 Yes 500mg Take 500 Uni vers ER 500 mg 4-06 mg by ity of 24 hr 14:42: mouth [place] tablet 40 daily with Medical breakfast. Branch clopidogreL 2-0 Yes 75mg Take 75 mg Univers 75 mg 4-06 by mouth ity of tablet 14:42: daily. [address] aspirin 81 2021-0 Yes 81mg Take 81 mg U nivers mg chewable 4-06 by mouth ity of tablet 14:42: daily. [address] amLODIPine 2021-0 Yes 10mg Take 10 mg U nivers 10 mg 4-06 by mouth ity of tablet 14:42: daily. [address] isosorbide 2-0 Yes 30mg Take 30 mg U nivers mononitrate 4-06 by mouth ity of 30 mg 24 hr 14:42: [place]. [place] [address] [place] [address] metformin 2021-0 Yes 500mg Take 500 Uni vers ER 500 mg 4-06 mg by ity of 24 hr 14:42: mouth [place] tablet 40 daily with Medical breakfast. Branch clopidogreL 2021-0 Yes 75mg Take 75 mg Univers 75 mg 4-06 by mouth ity of tablet 14:42: daily. [address] aspirin 81 2021-0 Yes 81mg Take 81 mg U nivers mg chewable 4-06 by mouth ity of tablet 14:42: daily. [address] amLODIPine 2021-0 Yes 10mg Take 10 mg U nivers 10 mg 4-06 by mouth ity of tablet 14:42: daily. [address] isosorbide 2021-0 Yes 30mg Take 30 mg U nivers mononitrate 4-06 by mouth ity of 30 mg 24 hr 14:42: [place]. [place] [address] [place] [address] metformin 2-0 Yes 500mg Take 500 Uni vers ER 500 mg 4-06 mg by ity of 24 hr 14:42: mouth [place] tablet 40 daily with Medical breakfast. Branch clopidogreL 2-0 Yes 75mg Take 75 mg Univers 75 mg 4-06 by mouth ity of tablet 14:42: daily. [address] aspirin 81 2-0 Yes 81mg Take 81 mg U nivers mg chewable 4-06 by mouth ity of tablet 14:42: daily. [address] amLODIPine 2-0 Yes 10mg Take 10 mg U nivers 10 mg 4-06 by mouth ity of tablet 14:42: daily. [address] metformin 2-0 Yes 500mg Take 500 Uni vers ER 500 mg 4-06 mg by ity of 24 hr 14:42: mouth [place] tablet 40 daily with Medical breakfast. Branch clopidogreL 2022-0 Yes 75mg Take 75 mg Univers 75 mg 4-06 by mouth ity of tablet 14:42: daily. [address] aspirin 81 2-0 Yes 81mg Take 81 mg U nivers mg chewable 4-06 by mouth ity of tablet 14:42: daily. [address] metformin 2-0 Yes 500mg Take 500 Uni vers ER 500 mg 4-06 mg by ity of 24 hr 14:42: mouth [place] tablet 40 daily with Medical breakfast. Branch clopidogreL 2022-0 Yes 75mg Take 75 mg Univers 75 mg 4-06 by mouth ity of tablet 14:42: daily. [address] aspirin 81 2-0 Yes 81mg Take 81 mg U nivers mg chewable 4-06 by mouth ity of tablet 14:42: daily. [address] metformin 2-0 Yes 500mg Take 500 Uni vers ER 500 mg 4-06 mg by ity of 24 hr 14:42: mouth [place] tablet 40 daily with Medical breakfast. Branch clopidogreL 2-0 Yes 75mg Take 75 mg [facility] 75 mg 4-06 by mouth ity of tablet 14:42: daily. [address] aspirin 81 2-0 Yes 81mg Take 81 mg U nivers mg chewable 4-06 by mouth ity of tablet 14:42: daily. [address] metformin 2022-0 Yes 500mg Take 500 Uni vers ER 500 mg 4-06 mg by ity of 24 hr 14:42: mouth [place] tablet 40 daily with Medical breakfast. Branch clopidogreL 2022-0 Yes 75mg Take 75 mg [facility] 75 mg 4-06 by mouth ity of tablet 14:42: daily. [address] aspirin 81 2-0 Yes 81mg Take 81 mg U nivers mg chewable 4-06 by mouth ity of tablet 14:42: daily. [address] metformin 2022-0 Yes 500mg Take 500 Uni vers ER 500 mg 4-06 mg by ity of 24 hr 14:42: mouth [place] tablet 40 daily with Medical breakfast. [facility] clopidogreL 2022-0 Yes 75mg Take 75 mg [facility] 75 mg 4-06 by mouth ity of tablet 14:42: daily. [address] aspirin 81 2-0 Yes 81mg Take 81 mg U nivers mg chewable 4-06 by mouth ity of tablet 14:42: daily. [address] Lisinopril Lisinopril 2020-0 No 1{table QD Lisinopril 10 MG 10 MG 7-07 t} 10 MG 00:00: 00 [place] Kenalog 2020-0 No 40mg Common (Triamcinol (Triamcinol 3-19 S pirit one) one) 00:00: - [facility] 00 [facility] Bupivicaine Bupivicaine 2020-0 No 5mL Common [place]19 Spirit 00:00: - [facility] 00 [facility] Kenalog Kenalog 2020-0 No 40mg Common (Triamcinol (Triamcinol 3-19 S pirit one) one) 00:00: - [facility] 00 [facility] Bupivicaine Bupivicaine 2020-0 No 5mL Common [place] 3-19 Spirit 00:00: - [facility] 00 [facility] Kenalog Kenalog 2020-0 No 40mg Common (Triamcinol (Triamcinol 3-19 S pirit one) one) 00:00: - [facility] 00 [facility] Bupivicaine Bupivicaine 2020-0 No 5mL Common [place] 3-19 Spirit 00:00: - [facility] 00 [facility] Kenalog Kenalog 2020-0 No 40mg Common (Triamcinol (Triamcinol 3-19 S pirit one) one) 00:00: - [facility] 00 [facility] Bupivicaine Bupivicaine 2020-0 No 5mL Common [place] 3-19 Spirit 00:00: - [facility] 00 [facility] Kenalog Kenalog 2020-0 No 40mg Common (Triamcinol (Triamcinol 3-19 S pirit one) one) 00:00: - [facility] 00 [facility] Bupivicaine Bupivicaine 2020-0 No 5mL Common [place] 3-19 Spirit 00:00: - [facility] 00 [facility] Kenalog Kenalog 2020-0 No 40mg Common (Triamcinol (Triamcinol 3-19 S pirit one) one) 00:00: - [facility] 00 [facility] Bupivicaine Bupivicaine 2020-0 No 5mL Common [place] 3-19 Spirit 00:00: - [facility] 00 [facility] Kenalog Kenalog 2020-0 No 40mg Common (Triamcinol (Triamcinol 3-19 S pirit one) one) 00:00: - [facility] 00 [facility] Bupivicaine Bupivicaine 2020-0 No 5mL Common [place] 3-19 Spirit 00:00: - [facility] 00 [facility] Kenalog Kenalog 2020-0 No 40mg Common (Triamcinol (Triamcinol 3-19 S pirit one) one) 00:00: - [facility] 00 [facility] Bupivicaine Bupivicaine 2020-0 No 5mL Common [place] 3-19 Spirit 00:00: - [facility] 00 [facility] Kenalog Kenalog 2020-0 No 40mg Common (Triamcinol (Triamcinol 3-19 S pirit one) one) 00:00: - [facility] 00 [facility] Bupivicaine Bupivicaine 2020-0 No 5mL Common [place] 3-19 Spirit 00:00: - [facility] 00 [facility] Bupivicaine Bupivicaine 2020-0 No 5mL Common [place] 2-05 Spirit 00:00: - [facility] 00 [facility] Kenalog Kenalog 2020-0 No 1mL Common (Triamcinol (Triamcinol 2-05 S pirit one) one) 00:00: - [facility] 00 [facility] Bupivicaine Bupivicaine 2020-0 No 5mL Common [place] 2-05 Spirit 00:00: - [facility] 00 [facility] Kenalog Kenalog 2020-0 No 1mL Common (Triamcinol (Triamcinol 2-05 S pirit one) one) 00:00: - [facility] 00 [facility] Bupivicaine Bupivicaine 2020-0 No 5mL Common [place] 2-05 Spirit 00:00: - [facility] 00 [facility] Kenalog Kenalog 2020-0 No 1mL Common (Triamcinol (Triamcinol 2-05 S pirit one) one) 00:00: - [facility] 00 [facility] Bupivicaine Bupivicaine 2020-0 No 5mL Common [place] 2-05 Spirit 00:00: - [facility] 00 [facility] Kenalog Kenalog 2020-0 No 1mL Common (Triamcinol (Triamcinol 2-05 S pirit one) one) 00:00: - [facility] 00 [facility] Bupivicaine Bupivicaine 2020-0 No 5mL Common [place] 2-05 Spirit 00:00: - [facility] 00 [facility] Kenalog Kenalog 2020-0 No 1mL Common (Triamcinol (Triamcinol 2-05 S pirit one) one) 00:00: - [facility] 00 [facility] Bupivicaine Bupivicaine 2020-0 No 5mL Common [place] 2-05 Spirit 00:00: - [facility] 00 [facility] Kenalog Kenalog 2020-0 No 1mL Common (Triamcinol (Triamcinol 2-05 S pirit one) one) 00:00: - [facility] 00 [facility] Bupivicaine Bupivicaine 2020-0 No 5mL Common [place] 2-05 Spirit 00:00: - [facility] 00 [facility] Kenalog Kenalog 2020-0 No 1mL Common (Triamcinol (Triamcinol 2-05 S pirit one) one) 00:00: - [facility] 00 [facility] Bupivicaine Bupivicaine 2020-0 No 5mL Common [place] 2-05 Spirit 00:00: - [facility] 00 [facility] Kenalog Kenalog 2020-0 No 1mL Common (Triamcinol (Triamcinol 2-05 S pirit one) one) 00:00: - [facility] 00 [facility] Bupivicaine Bupivicaine 2020-0 No 5mL Common [place] 2-05 Spirit 00:00: - [facility] 00 [facility] Kenalog Kenalog 2020-0 No 1mL Common (Triamcinol (Triamcinol 2-05 S pirit one) one) 00:00: - [facility] 00 [facility] aspirin 2018-02 Yes 81mg QD Take 81 mg Meth thom (ECOTRIN) 0-[address] 81 MG 10:43: daily. Hospita enteric 05 l coated tablet amLODIPine 2018-02 Yes 10mg QD Take 10 mg M ethodi (NORVASC) 0-[address] 10 mg 10:43: daily. Hospita tablet 05 l multivit/fo 2018-02 Yes 1{tbl} QD Take 1 Me thodi lic 0-[address] acid/vit K1 10:43: mouth Hospi ta (ONE-A-DAY 05 daily. l WOMEN'S 50 PLUS ORAL) furosemide Yes as needed. M ethodi (LASIX) 20 8-05 st mg tablet 00:00: Hospita 00 l potassium 2018-0 Yes as needed. Me thodi chloride 20 8-05 st mEq tablet 00:00: Hospita extended 00 l release nitroglycer Yes [id number] .4mg Place 1 [facility] in 7-[address] (NITROSTAT) 00:00: (0.4 mg Hos titi 0.4 MG SL 00 total) l tablet under the tongue every 5 (five) minutes as needed for chest pain. metFORMIN Yes 500mg Q.5D Take 1 Metho di (GLUCOPHAGE 7-[address] ) 500 mg 00:00: (500 mg Hospit a tablet 00 total) by l mouth 2 (two) times a day with meals. Hold metformin for 48 hours.Rest art at 08/25/2018 LIDOCAINE LIDOCAINE 0 No 10mg Com mon HCL 10MG/ML HCL 10MG/ML 5-30 S pirit 00:00: - CHI [facility] Neteroalog Kenalog No 40mg Common (Triamcinol (Triamcinol 5-30 S pirit one) one) 00:00: - [facility] LIDOCAINE LIDOCAINE 0 No 10mg Com mon HCL 10MG/ML HCL 10MG/ML 5-30 S pirit 00:00: - CH[facility] Kenalog Kenalog No 40mg Common (Triamcinol (Triamcinol 5-30 S pirit one) one) 00:00: - [facility] LIDOCAINE LIDOCAINE 2018-0 No 10mg Com mon HCL 10MG/ML HCL 10MG/ML 5-30 S pirit 00:00: - CHI [facility] Neteroalog Kenalog No 40mg Common (Triamcinol (Triamcinol 5-30 S pirit one) one) 00:00: - [facility] 00 [facility] LIDOCAINE LIDOCAINE 2019-0 No 10mg Com mon HCL 10MG/ML HCL 10MG/ML 5-30 S pirit 00:00: - [facility] 00 [facility] Kenalog Kenalog 2019-0 No 40mg Common (Triamcinol (Triamcinol 5-30 S pirit one) one) 00:00: - [facility] 00 [facility] LIDOCAINE LIDOCAINE 2019-0 No 10mg Com mon HCL 10MG/ML HCL 10MG/ML 5-30 S pirit 00:00: - [facility] 00 [facility] Kenalog Kenalog 2019-0 No 40mg Common (Triamcinol (Triamcinol 5-30 S pirit one) one) 00:00: - [facility] 00 [facility] LIDOCAINE LIDOCAINE 2019-0 No 10mg Com mon HCL 10MG/ML HCL 10MG/ML 5-30 S pirit 00:00: - [facility]I [facility] Kenalog Kenalog 2019-0 No 40mg Common (Triamcinol (Triamcinol 5-30 S pirit one) one) 00:00: - [facility] 00 [facility] LIDOCAINE LIDOCAINE 2019-0 No 10mg Com mon HCL 10MG/ML HCL 10MG/ML 5-30 S pirit 00:00: - [facility] 00 [facility] Kenalog Kenalog 2019-0 No 40mg Common (Triamcinol (Triamcinol 5-30 S pirit one) one) 00:00: - [facility] LIDOCAINE LIDOCAINE 2019-0 No 10mg Com mon HCL 10MG/ML HCL 10MG/ML 5-30 S pirit 00:00: - [facility] 00 [facility] Kenalog Kenalog 2019-0 No 40mg Common (Triamcinol (Triamcinol 5-30 S pirit one) one) 00:00: - [facility] 00 [facility] LIDOCAINE LIDOCAINE 2019-0 No 10mg Com mon HCL 10MG/ML HCL 10MG/ML 5-30 S pirit 00:00: - [facility] Kenalog Kenalog 2019-0 No 40mg Common (Triamcinol (Triamcinol 5-30 S pirit one) one) 00:00: - [facility] clopidogrel 2019-0 Yes [id number] 75mg QD Take 1 Methodi (PLAVIX) 75 4-16 tablet (75 st mg tablet 00:00: mg total) Hos titi 00 by mouth l daily. rosuvastati Yes 40mg QD Take 40 mg Methodi n (CRESTOR) 3-[address] 40 MG 00:00: nightly. Hospita tablet 00 l metoprolol Yes 50mg Q.5D 50 mg 2 Meth thom tartrate 3-08 (two) st (LOPRESSOR) 00:00: times a Hos titi 50 mg 00 day. l tablet Neomycin-Po Neomycin-Po Yes Felicita 4 drops Common lymyxin-HC lymyxin-HC 10-19 [place] into Spirit 00:00: affected - [facility]I 00 ears [facility] Metformin Metformin Yes Felicita 1 tablet Common HCl HCl [place] with meals Spir [facility] Metoprolol Metoprolol Yes Felicita 1 tablet Common Tartrate Tartrate [place] [facility] Amlodipine Amlodipine Yes Felicita 1 tablet Common Besylate Besylate [place] Sp [facility] Clopidogrel Clopidogrel Yes Felicita 1 tablet Common Bisulfate Bisulfate [place] [facility] Rosuvastati Rosuvastati Yes Felicita 1 tablet Common n Calcium n Calcium [place] in evening [facility] Isosorbide Isosorbide Yes Felicita 1 tablet Common Mononitrate Mononitrate [place] in the Spirit ER ER morning [facility] Aspirin 81 Aspirin 81 Yes Felicita 1 tablet Common [place] [facility] Furosemide Furosemide Yes Felicita 1 tablet Common [place] as needed Spiri t for leg - [facility]I swelling St (take with [facility] potassium Medical chloride) [place] Nitroglycer Nitroglycer Yes Felicita as Common in in [place] directed [facility] Aspirin 81 Aspirin 81 No 1{table QD Aspirin 81 81 MG 81 MG t} 81 MG amLODIPine amLODIPine No 1{table QD amLODIPine Besylate 10 Besylate 10 t} Besylate MG MG 10 MG Metoprolol Metoprolol No 1{table BID Metoprolol Tartrate 50 Tartrate 50 t} Tartrate MG MG 50 MG Lisinopril Lisinopril No 1{table QD Lisinopril 10 MG 10 MG t} 10 MG Rosuvastati Rosuvastati No QD Rosuvastat n Calcium n Calcium in Calcium 40 MG 40 MG 40 MG metFORMIN metFORMIN No metFORMIN HCl 500 mg HCl 500 mg HCl 500 mg Multi Multi No Multi Vitamin Vitamin Vitamin Isosorbide Isosorbide No 1{table QD Isosorbide Mononitrate Mononitrate t_in_th Mononitrat ER 30 MG ER 30 MG e_morni e ER 30 MG ng} amLODIPine amLODIPine No 1{table QD amLODIPine Besylate 10 Besylate 10 t} Besylate MG MG 10 MG Nitroglycer Nitroglycer No Nitroglyce in 0.4 MG in 0.4 MG rin 0.4 MG Clopidogrel Clopidogrel No Clopidogre Bisulfate Bisulfate l 75 mg 75 mg Bisulfate 75 mg Clopidogrel Clopidogrel No 1{table QD Clopidogre Bisulfate Bisulfate t} l 75 MG 75 MG Bisulfate 75 MG Rosuvastati Rosuvastati No Rosuvastat n Calcium n Calcium in Calcium 40 mg 40 mg 40 mg Metoprolol Metoprolol No Metoprolol Tartrate 50 Tartrate 50 Tartrate mg mg 50 mg metFORMIN metFORMIN No 1{table BID metFORMIN HCl 500 MG HCl 500 MG t_with_ HCl 500 MG meals} Nitroglycer Nitroglycer No Nitroglyce in 0.4 MG in 0.4 MG rin 0.4 MG Multi Multi No Multi Vitamin Vitamin Vitamin Clopidogrel Clopidogrel No Clopidogre Bisulfate Bisulfate l 75 mg 75 mg Bisulfate 75 mg metFORMIN metFORMIN No metFORMIN HCl 500 mg HCl 500 mg HCl 500 mg Metoprolol Metoprolol No Metoprolol Tartrate 50 Tartrate 50 Tartrate mg mg 50 mg Rosuvastati Rosuvastati No Rosuvastat n Calcium n Calcium in Calcium 40 mg 40 mg 40 mg Rosuvastati Rosuvastati No QD Rosuvastat n Calcium n Calcium in Calcium 40 MG 40 MG 40 MG Lisinopril Lisinopril No 1{table QD Lisinopril 10 MG 10 MG t} 10 MG Metoprolol Metoprolol No 1{table BID Metoprolol Tartrate 50 Tartrate 50 t} Tartrate MG MG 50 MG Aspirin 81 Aspirin 81 No 1{table QD Aspirin 81 81 MG 81 MG t} 81 MG amLODIPine amLODIPine No 1{table QD amLODIPine Besylate 10 Besylate 10 t} Besylate MG MG 10 MG metFORMIN metFORMIN No 1{table BID metFORMIN HCl 500 MG HCl 500 MG t_with_ HCl 500 MG meals} Isosorbide Isosorbide No 1{table QD Isosorbide Mononitrate Mononitrate t_in_th Mononitrat ER 30 MG ER 30 MG e_morni e ER 30 MG ng} amLODIPine amLODIPine No 1{table QD amLODIPine Besylate 10 Besylate 10 t} Besylate MG MG 10 MG Clopidogrel Clopidogrel No 1{table QD Clopidogre Bisulfate Bisulfate t} l 75 MG 75 MG Bisulfate 75 MG Nitroglycer Nitroglycer No Nitroglyce in 0.4 MG in 0.4 MG rin 0.4 MG Multi Multi No Multi Vitamin Vitamin Vitamin Clopidogrel Clopidogrel No Clopidogre Bisulfate Bisulfate l 75 mg 75 mg Bisulfate 75 mg metFORMIN metFORMIN No metFORMIN HCl 500 mg HCl 500 mg HCl 500 mg Metoprolol Metoprolol No Metoprolol Tartrate 50 Tartrate 50 Tartrate mg mg 50 mg Rosuvastati Rosuvastati No Rosuvastat n Calcium n Calcium in Calcium 40 mg 40 mg 40 mg Rosuvastati Rosuvastati No QD Rosuvastat n Calcium n Calcium in Calcium 40 MG 40 MG 40 MG Lisinopril Lisinopril No 1{table QD Lisinopril 10 MG 10 MG t} 10 MG Metoprolol Metoprolol No 1{table BID Metoprolol Tartrate 50 Tartrate 50 t} Tartrate MG MG 50 MG Aspirin 81 Aspirin 81 No 1{table QD Aspirin 81 81 MG 81 MG t} 81 MG amLODIPine amLODIPine No 1{table QD amLODIPine Besylate 10 Besylate 10 t} Besylate MG MG 10 MG metFORMIN metFORMIN No 1{table BID metFORMIN HCl 500 MG HCl 500 MG t_with_ HCl 500 MG meals} Isosorbide Isosorbide No 1{table QD Isosorbide Mononitrate Mononitrate t_in_th Mononitrat ER 30 MG ER 30 MG e_morni e ER 30 MG ng} amLODIPine amLODIPine No 1{table QD amLODIPine Besylate 10 Besylate 10 t} Besylate MG MG 10 MG Clopidogrel Clopidogrel No 1{table QD Clopidogre Bisulfate Bisulfate t} l 75 MG 75 MG Bisulfate 75 MG Nitroglycer Nitroglycer No Nitroglyce in 0.4 MG in 0.4 MG rin 0.4 MG Multi Multi No Multi Vitamin Vitamin Vitamin Clopidogrel Clopidogrel No Clopidogre Bisulfate Bisulfate l 75 mg 75 mg Bisulfate 75 mg metFORMIN metFORMIN No metFORMIN HCl 500 mg HCl 500 mg HCl 500 mg Metoprolol Metoprolol No Metoprolol Tartrate 50 Tartrate 50 Tartrate mg mg 50 mg Rosuvastati Rosuvastati No Rosuvastat n Calcium n Calcium in Calcium 40 mg 40 mg 40 mg Rosuvastati Rosuvastati No QD Rosuvastat n Calcium n Calcium in Calcium 40 MG 40 MG 40 MG Lisinopril Lisinopril No 1{table QD Lisinopril 10 MG 10 MG t} 10 MG Metoprolol Metoprolol No 1{table BID Metoprolol Tartrate 50 Tartrate 50 t} Tartrate MG MG 50 MG Aspirin 81 Aspirin 81 No 1{table QD Aspirin 81 81 MG 81 MG t} 81 MG amLODIPine amLODIPine No 1{table QD amLODIPine Besylate 10 Besylate 10 t} Besylate MG MG 10 MG metFORMIN metFORMIN No 1{table BID metFORMIN HCl 500 MG HCl 500 MG t_with_ HCl 500 MG meals} Isosorbide Isosorbide No 1{table QD Isosorbide Mononitrate Mononitrate t_in_th Mononitrat ER 30 MG ER 30 MG e_morni e ER 30 MG ng} amLODIPine amLODIPine No 1{table QD amLODIPine Besylate 10 Besylate 10 t} Besylate MG MG 10 MG Clopidogrel Clopidogrel No 1{table QD Clopidogre Bisulfate Bisulfate t} l 75 MG 75 MG Bisulfate 75 MG amLODIPine amLODIPine No 1{table QD amLODIPine Besylate 10 Besylate 10 t} Besylate MG MG 10 MG Aspirin 81 Aspirin 81 No 1{table QD Aspirin 81 81 MG 81 MG t} 81 MG Nitroglycer Nitroglycer No Nitroglyce in 0.4 MG in 0.4 MG rin 0.4 MG Clopidogrel Clopidogrel No 1{table QD Clopidogre Bisulfate Bisulfate t} l 75 MG 75 MG Bisulfate 75 MG Isosorbide Isosorbide No 1{table QD Isosorbide Mononitrate Mononitrate t_in_th Mononitrat ER 30 MG ER 30 MG e_morni e ER 30 MG ng} Rosuvastati Rosuvastati No Rosuvastat n Calcium n Calcium in Calcium 40 mg 40 mg 40 mg Clopidogrel Clopidogrel No Clopidogre Bisulfate Bisulfate l 75 mg 75 mg Bisulfate 75 mg Rosuvastati Rosuvastati No QD Rosuvastat n Calcium n Calcium in Calcium 20 MG 20 MG 20 MG Metoprolol Metoprolol No Metoprolol Tartrate 50 Tartrate 50 Tartrate mg mg 50 mg Multi Multi No Multi Vitamin Vitamin Vitamin metFORMIN metFORMIN No metFORMIN HCl 500 mg HCl 500 mg HCl 500 mg amLODIPine amLODIPine No 1{table QD amLODIPine Besylate 10 Besylate 10 t} Besylate MG MG 10 MG Lisinopril Lisinopril No 1{table QD Lisinopril 10 MG 10 MG t} 10 MG Lisinopril Lisinopril No 1{table QD Lisinopril 10 MG 10 MG t} 10 MG Metoprolol Metoprolol No Metoprolol Tartrate 50 Tartrate 50 Tartrate mg mg 50 mg Clopidogrel Clopidogrel No 1{table QD Clopidogre Bisulfate Bisulfate t} l 75 MG 75 MG Bisulfate 75 MG Isosorbide Isosorbide No 1{table QD Isosorbide Mononitrate Mononitrate t_in_ Mononitrat ER 30 MG ER 30 MG e_morni e ER 30 MG ng} Rosuvastati Rosuvastati No QD Rosuvastat n Calcium n Calcium in Calcium 20 MG 20 MG 20 MG Nitroglycer Nitroglycer No Nitroglyce in 0.4 MG in 0.4 MG rin 0.4 MG amLODIPine amLODIPine No 1{table QD amLODIPine Besylate 10 Besylate 10 t} Besylate MG MG 10 MG metFORMIN metFORMIN No metFORMIN HCl 500 mg HCl 500 mg HCl 500 mg Rosuvastati Rosuvastati No Rosuvastat n Calcium n Calcium in Calcium 40 mg 40 mg 40 mg Aspirin 81 Aspirin 81 No 1{table QD Aspirin 81 81 MG 81 MG t} 81 MG Coreg 12.5 Coreg 12.5 No 1{table BID Coreg 12.5 MG MG t_with_ MG food} amLODIPine amLODIPine No 1{table QD amLODIPine Besylate 10 Besylate 10 t} Besylate MG MG 10 MG Multi Multi No Multi Vitamin Vitamin Vitamin Clopidogrel Clopidogrel No Clopidogre Bisulfate Bisulfate l 75 mg 75 mg Bisulfate 75 mg Lisinopril Lisinopril No 1{table QD Lisinopril 10 MG 10 MG t} 10 MG Metoprolol Metoprolol No Metoprolol Tartrate 50 Tartrate 50 Tartrate mg mg 50 mg Clopidogrel Clopidogrel No 1{table QD Clopidogre Bisulfate Bisulfate t} l 75 MG 75 MG Bisulfate 75 MG Isosorbide Isosorbide No 1{table QD Isosorbide Mononitrate Mononitrate t_in_th Mononitrat ER 30 MG ER 30 MG e_morni e ER 30 MG ng} Rosuvastati Rosuvastati No QD Rosuvastat n Calcium n Calcium in Calcium 20 MG 20 MG 20 MG Nitroglycer Nitroglycer No Nitroglyce in 0.4 MG in 0.4 MG rin 0.4 MG amLODIPine amLODIPine No 1{table QD amLODIPine Besylate 10 Besylate 10 t} Besylate MG MG 10 MG metFORMIN metFORMIN No metFORMIN HCl 500 mg HCl 500 mg HCl 500 mg Rosuvastati Rosuvastati No Rosuvastat n Calcium n Calcium in Calcium 40 mg 40 mg 40 mg Aspirin 81 Aspirin 81 No 1{table QD Aspirin 81 81 MG 81 MG t} 81 MG Coreg 12.5 Coreg 12.5 No 1{table BID Coreg 12.5 MG MG t_with_ MG food} amLODIPine amLODIPine No 1{table QD amLODIPine Besylate 10 Besylate 10 t} Besylate MG MG 10 MG Multi Multi No Multi Vitamin Vitamin Vitamin Clopidogrel Clopidogrel No Clopidogre Bisulfate Bisulfate l 75 mg 75 mg Bisulfate 75 mg amLODIPine amLODIPine No 1{table QD amLODIPine Besylate 10 Besylate 10 t} Besylate MG MG 10 MG Clopidogrel Clopidogrel No 1{table QD Clopidogre Bisulfate Bisulfate t} l 75 MG 75 MG Bisulfate 75 MG amLODIPine amLODIPine No 1{table QD amLODIPine Besylate 10 Besylate 10 t} Besylate MG MG 10 MG Isosorbide Isosorbide No 1{table QD Isosorbide Mononitrate Mononitrate t_in_th Mononitrat ER 30 MG ER 30 MG e_morni e ER 30 MG ng} Metoprolol Metoprolol No Metoprolol Tartrate 50 Tartrate 50 Tartrate mg mg 50 mg Aspirin 81 Aspirin 81 No 1{table QD Aspirin 81 81 MG 81 MG t} 81 MG Rosuvastati Rosuvastati No Rosuvastat n Calcium n Calcium in Calcium 40 mg 40 mg 40 mg metFORMIN metFORMIN No metFORMIN HCl 500 mg HCl 500 mg HCl 500 mg Multi Multi No Multi Vitamin Vitamin Vitamin Clopidogrel Clopidogrel No Clopidogre Bisulfate Bisulfate l 75 mg 75 mg Bisulfate 75 mg Nitroglycer Nitroglycer No Nitroglyce in 0.4 MG in 0.4 MG rin 0.4 MG Rosuvastati Rosuvastati No QD Rosuvastat n Calcium n Calcium in Calcium 20 MG 20 MG 20 MG Coreg 12.5 Coreg 12.5 No 1{table BID Coreg 12.5 MG MG t_with_ MG food} Lisinopril Lisinopril No 1{table QD Lisinopril 10 MG 10 MG t} 10 MG amLODIPine amLODIPine No 1{table QD amLODIPine Besylate 10 Besylate 10 t} Besylate MG MG 10 MG Isosorbide Isosorbide No 1{table QD Isosorbide Mononitrate Mononitrate t_in_th Mononitrat ER 30 MG ER 30 MG e_morni e ER 30 MG ng} Lisinopril Lisinopril No 1{table QD Lisinopril 10 MG 10 MG t} 10 MG Coreg 12.5 Coreg 12.5 No 1{table BID Coreg 12.5 MG MG t_with_ MG food} Metoprolol Metoprolol No Metoprolol Tartrate 50 Tartrate 50 Tartrate mg mg 50 mg Clopidogrel Clopidogrel No Clopidogre Bisulfate Bisulfate l 75 mg 75 mg Bisulfate 75 mg metFORMIN metFORMIN No metFORMIN HCl 500 mg HCl 500 mg HCl 500 mg Clopidogrel Clopidogrel No 1{table QD Clopidogre Bisulfate Bisulfate t} l 75 MG 75 MG Bisulfate 75 MG Rosuvastati Rosuvastati No QD Rosuvastat n Calcium n Calcium in Calcium 40 MG 40 MG 40 MG Rosuvastati Rosuvastati No Rosuvastat n Calcium n Calcium in Calcium 40 mg 40 mg 40 mg metFORMIN metFORMIN No 1{table BID metFORMIN HCl 500 MG HCl 500 MG t_with_ HCl 500 MG meals} amLODIPine amLODIPine No 1{table QD amLODIPine Besylate 10 Besylate 10 t} Besylate MG MG 10 MG Nitroglycer Nitroglycer No Nitroglyce in 0.4 MG in 0.4 MG rin 0.4 MG Multi Multi No Multi Vitamin Vitamin Vitamin Metoprolol Metoprolol No 1{table BID Metoprolol Tartrate 50 Tartrate 50 t} Tartrate MG MG 50 MG Aspirin 81 Aspirin 81 No 1{table QD Aspirin 81 81 MG 81 MG t} 81 MG amLODIPine amLODIPine No 1{table QD amLODIPine Besylate 5 Besylate 5 t} Besylate 5 MG MG MG Rosuvastati Rosuvastati No QD Rosuvastat n Calcium n Calcium in Calcium 20 MG 20 MG 20 MG Clopidogrel Clopidogrel No 1{table QD Clopidogre Bisulfate Bisulfate t} l 75 MG 75 MG Bisulfate 75 MG amLODIPine amLODIPine No 1{table QD amLODIPine Besylate 10 Besylate 10 t} Besylate MG MG 10 MG Clopidogrel Clopidogrel No Clopidogre Bisulfate Bisulfate l 75 mg 75 mg Bisulfate 75 mg Metoprolol Metoprolol No Metoprolol Tartrate 50 Tartrate 50 Tartrate mg mg 50 mg Rosuvastati Rosuvastati No Rosuvastat n Calcium n Calcium in Calcium 40 mg 40 mg 40 mg Isosorbide Isosorbide No 1{table QD Isosorbide Mononitrate Mononitrate t_in_th Mononitrat ER 30 MG ER 30 MG e_morni e ER 30 MG ng} Aspirin 81 Aspirin 81 No 1{table QD Aspirin 81 81 MG 81 MG t} 81 MG Metoprolol Metoprolol No 1{table BID Metoprolol Tartrate 50 Tartrate 50 t} Tartrate MG MG 50 MG Lisinopril Lisinopril No 1{table QD Lisinopril 10 MG 10 MG t} 10 MG Coreg 12.5 Coreg 12.5 No 1{table BID Coreg 12.5 MG MG t_with_ MG food} Nitroglycer Nitroglycer No Nitroglyce in 0.4 MG in 0.4 MG rin 0.4 MG Multi Multi No Multi Vitamin Vitamin Vitamin metFORMIN metFORMIN No metFORMIN HCl 500 mg HCl 500 mg HCl 500 mg metFORMIN metFORMIN No 1{table QD metFORMIN HCl 500 MG HCl 500 MG t_with_ HCl 500 MG meals} amLODIPine amLODIPine No 1{table QD amLODIPine Besylate 5 Besylate 5 t} Besylate 5 MG MG MG Rosuvastati Rosuvastati No QD Rosuvastat n Calcium n Calcium in Calcium 20 MG 20 MG 20 MG Clopidogrel Clopidogrel No 1{table QD Clopidogre Bisulfate Bisulfate t} l 75 MG 75 MG Bisulfate 75 MG amLODIPine amLODIPine No 1{table QD amLODIPine Besylate 10 Besylate 10 t} Besylate MG MG 10 MG Clopidogrel Clopidogrel No Clopidogre Bisulfate Bisulfate l 75 mg 75 mg Bisulfate 75 mg Metoprolol Metoprolol No Metoprolol Tartrate 50 Tartrate 50 Tartrate mg mg 50 mg Rosuvastati Rosuvastati No Rosuvastat n Calcium n Calcium in Calcium 40 mg 40 mg 40 mg Isosorbide Isosorbide No 1{table QD Isosorbide Mononitrate Mononitrate t_in_th Mononitrat ER 30 MG ER 30 MG e_morni e ER 30 MG ng} Aspirin 81 Aspirin 81 No 1{table QD Aspirin 81 81 MG 81 MG t} 81 MG Metoprolol Metoprolol No 1{table BID Metoprolol Tartrate 50 Tartrate 50 t} Tartrate MG MG 50 MG Lisinopril Lisinopril No 1{table QD Lisinopril 10 MG 10 MG t} 10 MG Coreg 12.5 Coreg 12.5 No 1{table BID Coreg 12.5 MG MG t_with_ MG food} Nitroglycer Nitroglycer No Nitroglyce in 0.4 MG in 0.4 MG rin 0.4 MG Multi Multi No Multi Vitamin Vitamin Vitamin metFORMIN metFORMIN No metFORMIN HCl 500 mg HCl 500 mg HCl 500 mg metFORMIN metFORMIN No 1{table QD metFORMIN HCl 500 MG HCl 500 MG t_with_ HCl 500 MG meals} Coreg 12.5 Coreg 12.5 No 1{table BID Coreg 12.5 MG MG t_with_ MG food} Clopidogrel Clopidogrel No Clopidogre Bisulfate Bisulfate l 75 mg 75 mg Bisulfate 75 mg Rosuvastati Rosuvastati No QD Rosuvastat n Calcium n Calcium in Calcium 20 MG 20 MG 20 MG Nitroglycer Nitroglycer No Nitroglyce in 0.4 MG in 0.4 MG rin 0.4 MG Metoprolol Metoprolol No 1{table BID Metoprolol Tartrate 50 Tartrate 50 t} Tartrate MG MG 50 MG Isosorbide Isosorbide No 1{table QD Isosorbide Mononitrate Mononitrate t_in_th Mononitrat ER 30 MG ER 30 MG e_morni e ER 30 MG ng} amLODIPine amLODIPine No 1{table QD amLODIPine Besylate 5 Besylate 5 t} Besylate 5 MG MG MG Multi Multi No Multi Vitamin Vitamin Vitamin metFORMIN metFORMIN No metFORMIN HCl 500 mg HCl 500 mg HCl 500 mg Clopidogrel Clopidogrel No 1{table QD Clopidogre Bisulfate Bisulfate t} l 75 MG 75 MG Bisulfate 75 MG amLODIPine amLODIPine No 1{table QD amLODIPine Besylate 10 Besylate 10 t} Besylate MG MG 10 MG metFORMIN metFORMIN No 1{table QD metFORMIN HCl 500 MG HCl 500 MG t_with_ HCl 500 MG meals} Metoprolol Metoprolol No Metoprolol Tartrate 50 Tartrate 50 Tartrate mg mg 50 mg Lisinopril Lisinopril No 1{table QD Lisinopril 10 MG 10 MG t} 10 MG Aspirin 81 Aspirin 81 No 1{table QD Aspirin 81 81 MG 81 MG t} 81 MG Rosuvastati Rosuvastati No Rosuvastat n Calcium n Calcium in Calcium 40 mg 40 mg 40 mg Coreg 12.5 Coreg 12.5 No 1{table BID Coreg 12.5 MG MG t_with_ MG food} Clopidogrel Clopidogrel No Clopidogre Bisulfate Bisulfate l 75 mg 75 mg Bisulfate 75 mg Rosuvastati Rosuvastati No QD Rosuvastat n Calcium n Calcium in Calcium 20 MG 20 MG 20 MG Nitroglycer Nitroglycer No Nitroglyce in 0.4 MG in 0.4 MG rin 0.4 MG Metoprolol Metoprolol No 1{table BID Metoprolol Tartrate 50 Tartrate 50 t} Tartrate MG MG 50 MG Isosorbide Isosorbide No 1{table QD Isosorbide Mononitrate Mononitrate t_in_th Mononitrat ER 30 MG ER 30 MG e_morni e ER 30 MG ng} amLODIPine amLODIPine No 1{table QD amLODIPine Besylate 5 Besylate 5 t} Besylate 5 MG MG MG Multi Multi No Multi Vitamin Vitamin Vitamin metFORMIN metFORMIN No metFORMIN HCl 500 mg HCl 500 mg HCl 500 mg Clopidogrel Clopidogrel No 1{table QD Clopidogre Bisulfate Bisulfate t} l 75 MG 75 MG Bisulfate 75 MG amLODIPine amLODIPine No 1{table QD amLODIPine Besylate 10 Besylate 10 t} Besylate MG MG 10 MG metFORMIN metFORMIN No 1{table QD metFORMIN HCl 500 MG HCl 500 MG t_with_ HCl 500 MG meals} Metoprolol Metoprolol No Metoprolol Tartrate 50 Tartrate 50 Tartrate mg mg 50 mg Lisinopril Lisinopril No 1{table QD Lisinopril 10 MG 10 MG t} 10 MG Aspirin 81 Aspirin 81 No 1{table QD Aspirin 81 81 MG 81 MG t} 81 MG Rosuvastati Rosuvastati No Rosuvastat n Calcium n Calcium in Calcium 40 mg 40 mg 40 mg Aspirin 81 Aspirin 81 No 1{table QD Aspirin 81 81 MG 81 MG t} 81 MG Metoprolol Metoprolol No 1{table BID Metoprolol Tartrate 50 Tartrate 50 t} Tartrate MG MG 50 MG amLODIPine amLODIPine No 1{table QD amLODIPine Besylate 10 Besylate 10 t} Besylate MG MG 10 MG Rosuvastati Rosuvastati No QD Rosuvastat n Calcium n Calcium in Calcium 40 MG 40 MG 40 MG Isosorbide Isosorbide No 1{table QD Isosorbide Mononitrate Mononitrate t_in_th Mononitrat ER 30 MG ER 30 MG e_morni e ER 30 MG ng} Multi Multi No Multi Vitamin Vitamin Vitamin metFORMIN metFORMIN No 1{table BID metFORMIN HCl 500 MG HCl 500 MG t_with_ HCl 500 MG meals} Clopidogrel Clopidogrel No 1{table QD Clopidogre Bisulfate Bisulfate t} l 75 MG 75 MG Bisulfate 75 MG Nitroglycer Nitroglycer No Nitroglyce in 0.4 MG in 0.4 MG rin 0.4 MG Vital Signs Vital Name Observation Time Observation Value Comments Source Systolic blood 2022-06-21 19:33:00 173 mm[Hg] Univer sity [facility] Diastolic blood 2022-06-21 19:33:00 94 mm[Hg] Unive rsity [facility] Heart rate 2022-06-21 19:33:00 78 /min [facility] Body height 2022-06-21 19:33:00 162.6 cm [facility] Body weight 2022-06-21 19:33:00 81.194 kg [facility] BMI 2022-06-21 19:33:00 30.73 kg/m2 [facility] Oxygen saturation in 2022-06-21 19:33:00 98 /min [facility] Arterial blood by [facility] Pulse oximetry Branch height 2022-03-10 08:00:00 64.00 [in_i] Common S [facility] weight 2022-03-10 08:00:00 176 [lb_av] Common S [facility] temperature 2022-03-10 08:00:00 97.2 [degF] Common [facility] bmi 2022-03-10 08:00:00 30.21 kg/m2 [facility] oximetry 2022-03-10 08:00:00 96 % [facility] respiratory rate 2022-03-10 08:00:00 18 /min Comm on [facility] blood pressure 2022-03-10 08:00:00 138 mm[Hg] Common [facility] - systolic [facility] blood pressure 2022-03-10 08:00:00 82 mm[Hg] Common [facility] - diastolic [facility] height 2022-03-10 08:00:00 64.00 [in_i] Common [facility] weight 2022-03-10 08:00:00 176 [lb_av] [facility] temperature 2022-03-10 08:00:00 97.2 [degF] [facility] bmi 2022-03-10 08:00:00 30.21 kg/m2 [facility] oximetry 2022-03-10 08:00:00 96 % [facility] respiratory rate 2022-03-10 08:00:00 18 /min Comm on [facility] blood pressure 2022-03-10 08:00:00 138 mm[Hg] Common [facility] - systolic [facility] blood pressure 2022-03-10 08:00:00 82 mm[Hg] Common [facility] - diastolic [facility] height 2021-11-22 13:00:00 64.00 [in_i] [facility] weight 2021-11-22 13:00:00 177.1 [lb_av] [facility] temperature 2021-11-22 13:00:00 97.6 [degF] [facility] bmi 2021-11-22 13:00:00 30.4 kg/m2 [facility] oximetry 2021-11-22 13:00:00 96 % Common S [facility] respiratory rate 2021-11-22 13:00:00 17 /min Comm on [facility] blood pressure 2021-11-22 13:00:00 122 mm[Hg] Common [facility] - systolic [facility] blood pressure 2021-11-22 13:00:00 67 mm[Hg] Common [facility] - diastolic [facility] Systolic blood 2021-09-02 22:00:00 128 mm[Hg] Univer sity of [facility] Diastolic blood 2021-09-02 22:00:00 78 mm[Hg] Unive rsity [facility] Heart rate 2021-09-02 22:00:00 77 /min [facility] Respiratory rate 2021-09-02 22:00:00 18 /min [facility] Oxygen saturation in 2021-09-02 22:00:00 97 /min [facility] Arterial blood by [facility] Pulse oximetry Branch Body temperature 2021-09-02 20:49:00 37.83 Stephanie [facility] Body weight 2021-09-02 20:05:00 79.833 kg [facility] BMI 2021-09-02 20:05:00 30.21 kg/m2 [facility] height 2021-08-22 14:20:00 64.00 [in_i] [facility] weight 2021-08-22 14:20:00 176.3 [lb_av] Common [facility] temperature 2021-08-22 14:20:00 97.8 [degF] [facility] bmi 2021-08-22 14:20:00 30.26 kg/m2 [facility] oximetry 2021-08-22 14:20:00 96 % Common S [facility] respiratory rate 2021-08-22 14:20:00 17 /min Comm on [facility] blood pressure 2021-08-22 14:20:00 119 mm[Hg] Common [facility] - systolic [facility] blood pressure 2021-08-22 14:20:00 64 mm[Hg] Common [facility] - diastolic [facility] Systolic blood 2021-06-03 15:06:00 130 mm[Hg] Univer sity of [facility] Diastolic blood 2021-06-03 15:06:00 71 mm[Hg] Unive rsity of [facility] Heart rate 2021-06-03 15:06:00 66 /min Universi ty [facility] Respiratory rate 2021-06-03 15:06:00 20 /min [facility] 2021-06-03 15:06:00 162.6 cm Universi [facility] Body weight 2021-06-03 15:06:00 80.06 kg Universi [facility] BMI 2021-06-03 15:06:00 30.30 kg/m2 [facility] Oxygen saturation in 2021-06-03 15:06:00 95 /min [facility] Arterial blood by [facility] Pulse oximetry Branch height 2021-03-01 13:50:00 64.00 [in_i] [facility] weight 2021-03-01 13:50:00 174.2 [lb_av] Common [facility] temperature 2021-03-01 13:50:00 97.3 [degF] [facility] bmi 2021-03-01 13:50:00 29.9 kg/m2 [facility] S [facility] oximetry 2021-03-01 13:50:00 98 % Common S [facility] respiratory rate 2021-03-01 13:50:00 18 /min Comm on [facility] blood pressure 2021-03-01 13:50:00 135 mm[Hg] Common [facility] - systolic [facility] blood pressure 2021-03-01 13:50:00 73 mm[Hg] Common [facility] - diastolic [facility] height 2021-03-01 13:40:00 64.0 [in_i] Common S [facility] weight 2021-03-01 13:40:00 174.2 [lb_av] Common [facility] temperature 2021-03-01 13:40:00 97.3 [degF] [facility] bmi 2021-03-01 13:40:00 29.9 kg/m2 [facility] oximetry 2021-03-01 13:40:00 98 % [facility] respiratory rate 2021-03-01 13:40:00 18 /min Comm on [facility] blood pressure 2021-03-01 13:40:00 135 mm[Hg] Common [facility] - systolic [facility] blood pressure 2021-03-01 13:40:00 73 mm[Hg] [facility] diastolic [facility] height 2020-11-18 13:00:00 64.00 [in_i] [facility] weight 2020-11-18 13:00:00 172.4 [lb_av] [facility] temperature 2020-11-18 13:00:00 97.9 [degF] [facility] bmi 2020-11-18 13:00:00 29.59 kg/m2 [facility] oximetry 2020-11-18 13:00:00 98 % [facility] respiratory rate 2020-11-18 13:00:00 19 /min Comm on [facility] blood pressure 2020-11-18 13:00:00 132 mm[Hg] Common [facility] systolic [facility] blood pressure 2020-11-18 13:00:00 72 mm[Hg] Common [facility] diastolic [facility] Procedures Procedure Date / Time Performed Performing Clinician [facility] e PHYSICIAN ORDERS 2022-06-21 05:01:00 Doctor Unassigned, No Unive [facility] Name Medical Branch REFERRAL- 2022-03-13 06:01:00 Doctor Unassigned, No [facility] [place] REQUEST/RESPONSE Name Medical Alda LIPASE 2021-09-02 20:41:00 Eddie Devlin Ginger [facility] MAGNESIUM 2021-09-02 20:41:00 Eddie Devlin [facility] TROPONIN I 2021-09-02 20:41:00 Eddie Devlin [facility] COMP. METABOLIC PANEL 2021-09-02 20:41:00 Eddie Devlin [facility] ([id number]) Medical Branch CBC WITH DIFF 2021-09-02 20:41:00 Claus [facility] URINALYSIS 2021-09-02 20:41:00 Claus [facility] COVID-19 (ID NOW RAPID 2021-09-02 20:41:00 Eddie Devlin [facility] TESTING) Medical Branch CONSENT/REFUSAL FOR 2021-09-02 19:49:54 Doctor [facility], [facility] Name Medical Branch TREATMENT Plan of Care Planned Activity Planned Date Details Comments Source Future Scheduled 2022-11-30 COVID-19 VACCINE (#1) [facility] Test 15:56:08 [code = COVID-19 VACCINE (#1)] Future Scheduled 2022-11-30 SHINGLES VACCINES (1 Met [facility] Test 15:56:08 of 2) [code = SHINGLES VACCINES (1 of 2)] Future Scheduled 2022-11-30 RSV VACCINES > 60 YR [facility] Test 15:56:08 (1 - 1-dose 60+ series) [code = RSV VACCINES > 60 YR (1 - 1-dose 60+ series)] Future Scheduled 2022-11-30 65+ PNEUMOCOCCAL Methodi [facility] Test 15:56:08 VACCINE (1 - PCV) [code = 65+ PNEUMOCOCCAL VACCINE (1 - PCV)] Future Scheduled 2022-11-30 INFLUENZA VACCINE (#1) [facility] Test 15:56:08 [code = INFLUENZA VACCINE (#1)] Encounters Start End Encounter Admission Attending Care Care Encounter Source Date/Time Date/Time Type Type Clinicians Facility Department ID 2022-06-01 Outpatient Rodriguez, [facility] [id number] Common 16:12:00 [facility] 17658 [facility] 2021-08-22 Outpatient Rodriguez, STLMLC STLMLC [id number] Common 13:59:00 Jeremiah [facility] 2021-08-19 Outpatient Rodriguez, STLMLC STLMLC [id number] Common 13:55:01 Jeremiah [facility] 2021-03-09 Outpatient Rodriguez, STLMLC STLMLC [id number] Common 14:00:20 Jeremiah 40497 [facility] 2021-03-09 Outpatient Rodriguez, STLMLC STLMLC [id number] Common 13:24:18 Jeremiah 35954 [facility] 2021-03-09 Outpatient Rodriguez, STLMLC STLMLC [id number] Common 13:20:43 Jeremiah 69002 [facility] 2021-03-09 Outpatient Rodriguez, STLMLC STLMLC [id number] Common 13:06:46 Jeremiah 33873 [facility] 2021-03-09 Outpatient Rodriguez, STLMLC STLMLC [id number] Common 12:36:30 Jeremiah 11935 [facility] 2021-03-09 Outpatient Rodriguez, STLMLC STLMLC [id number] Common 12:30:56 Jeremiah 64357 [facility] 2021-03-09 Outpatient Rodriguez, STLMLC STLMLC [id number] Common 12:29:45 Jeremiah 98727 [facility] 2021-03-09 Outpatient STLMLC STLMLC [id number] Common 12:08:20 15746 [facility] 2021-03-09 Outpatient STLMLC STLMLC [id number] Common 12:07:52 41926 [facility] 2021-03-09 Outpatient Millender, STLMLC STLMLC [id number] 12:07:22 Felicita 77229 [facility] 2022-11-24 2022-11-24 Outpatient [id number] PRIV PRIV [id number] [facility] 00:00:00 00:00:00 diyala_S [id number] [facility] al 2022-08-23 2022-08-23 Refill [facility] [id number] Univers 00:00:00 00:00:00 Austenrandellbeka JUDI [id number] ity [place] [facility] [id number] [id number] [address] 2022-08-11 2022-08-11 Refill [facility] [id number] Univers 00:00:00 00:00:00 Uyen LAU [id number] it[id number] [id number] [address] 2022-07-18 2022-07-18 Outpatient R TROY, [facility] [id number] Univers 13:40:00 13:40:00 [place] ity of [facility] 2022-06-21 2022-06-21 Office [facility] [id number] Univers 14:20:00 14:40:00 Visit Uyen LAU [id number] [id number] [id number] [address] 2022-06-21 2022-06-21 Outpatient R [facility] [id number] Univers 14:20:00 14:20:00 UYEN ortega o [facility] 2022-06-21 2022-06-21 Orders Doctor MORGAN [id number] Univers 00:00:00 00:00:00 Only Unassigned, NEAL [id number] ity of [place] [facility] [id number] Gurdeep as [phone] [address] 2022-05-19 2022-05-19 Outpatient R [facility] [id number] Univers 10:00:00 10:00:00 UYEN ortega o f [facility] 2022-05-19 2022-05-19 Outpatient R [facility] [id number] Univers 10:00:00 10:00:00 UYEN ortega o [facility] 2022-05-19 2022-05-19 Outpatient R ALBERTO, [facility] [id number] Univers 10:00:00 10:00:00 UYEN cliney o f [facility] 2022-05-19 2022-05-19 Outpatient R ALBERTO, [facility] [id number] Univers 10:00:00 10:00:00 UYEN ortega o [facility] 2022-03-13 2022-03-13 [facility] [id number] Univers 00:00:00 00:00:00 Uyen LAU [id number] it[id number] [phone] Or dicGabrielle V[place] [id number] [facility] 2022-03-13 2022-03-13 Orders Doctor EDDIE [id number] Univers 00:00:00 00:00:00 Only Unassigned, NEAL [id number] ity of [place] [facility] [id number] Gurdeep as [phone] [facility] 009 Branch 2022-03-10 2022-03-[address] [facility] [facility] [id number] Co mmon 00:00:00 00:00:00 VISIT Spirit ESTAB PT - CHI LEVEL 4 [facility] 2022-03-10 2022-03-[address] [facility] [facility] [id number] Common 00:00:00 00:00:00 MCR Spirit WELLNESS - CHI VISIT [facility] 2022-03-08 2022-03-08 (TEL) [facility] [id number] Co mmon 00:00:00 00:00:00 Spirit - CHI [facility] 2021-11-22 2021-11-[address] [facility] [facility] [id number] Co mmon 00:00:00 00:00:00 VISIT Spirit ESTAB PT - CHI LEVEL 4 [facility] 2021-10-19 2021-10-[address] [facility] [id number] Univers 13:00:00 13:00:00 ity of [facility] 2021-09-02 2021-09-02 Emergency X CLAUS, Eddie [facility] ERT [id number] Univers 15:06:00 17:00:00 ity of [facility] 2021-09-02 2021-09-02 Emergency ClausEddie [facility] [id number] [id number] Univers 15:06:00 17:00:00 Ginger LAU [id number] i [id number] [id number] [facility] 084 Alda 2021-09-02 2021-09-02 Orders Doctor EDDIE [id number] Univers 00:00:00 00:00:00 Only Unassigned, NEAL [id number] ity of [place] [facility] [id number] Gurdeep as [phone] [facility] 009 Branch 2021-08-22 2021-08-22 OFFICE [facility] [id number] Co mmon 00:00:00 00:00:00 VISIT Spirit ESTAB PT - CHI LEVEL 4 [facility] 2021-07-26 2021-07-26 [facility]phone [facility] [id number] Univers 00:00:00 00:00:00 Uyen LAU [id number] [id number] [phone] Or isak NAL [address] [place] [address] 2021-06-29 2021-06-29 (TEL) [facility] [id number] Co mmon 00:00:00 00:00:00 Spirit - CHI [facility] 2021-06-28 2021-06-28 [facility]phone [facility] [id number] Univers 00:00:00 00:00:00 Uyen LAU [id number] ity of [id number] [phone] Or isak NAL [address] [place] [address] 2021-06-22 2021-06-[address] [facility] [id number] Univers 07:52:11 23:59:00 UYEN cliney o f [facility] 2021-06-22 2021-06-22 Outpatient R ALBERTO, [facility] [id number] Univers 08:00:00 08:00:00 UYEN ity o f [facility] 2021-06-16 2021-06-16 Outpatient R ALBERTO, [facility] [id number] Univers 09:00:00 09:00:00 UYEN ity o f [facility] 2021-06-16 2021-06-16 Outpatient R ALBERTO, [facility] [id number] Univers 09:00:00 09:00:00 UYEN cliney o [facility] 2021-06-15 2021-06-15 (TEL) STLMLC STLMLC [id number] Co mmon 00:00:00 00:00:00 [facility] 2021-06-03 2021-06-03 Office Christina Lawton [facility] [id number] Univers 09:45:00 10:00:00 Visit E HEALTH [id number] it y of [place] [id number] [facility] [place] [id number] [facility] 201 Branch 2021-06-03 2021-06-03 Outpatient R CHRISTINA LAWTON [facility] [id number] Univers 09:45:00 09:45:00 ity [facility] 2021-06-03 2021-06-03 [address] [facility] [id number] Univers 09:45:00 09:45:00 ity [facility] 2021-06-03 2021-06-03 Outpatient R CHRISTINA [facility] [id number] Univers 09:45:00 09:45:00 ity [facility] 2021-06-03 2021-06-03 (TEL) STLMLC STLMLC [id number] Co mmon 00:00:00 00:00:00 [facility] 2021-05-27 2021-05-27 (TEL) STLMLC STLMLC [id number] Co mmon 00:00:00 00:00:00 Spirit - [facility] 2021-05-24 2021-05-24 Outpatient R CHRISTINA [facility] [id number] Univers 13:50:49 23:59:00 ity of [facility] 2021-05-24 2021-05-24 [facility] Christina Lawton [facility] [id number] Univers 13:50:49 23:59:00 Encounter Brady LAU [id number] ity [facility] [id number] [facility] [id number] [facility] 806 Alda 2021-05-24 2021-05-24 Outpatient R CHRISTINA [facility] [id number] Univers 00:00:00 00:00:00 ity [facility] 2021-05-24 2021-05-24 Orders Doctor EDDIE [id number] [id number] Univers 00:00:00 00:00:00 Only Unassigned, NEAL [id number] ity [facility] [id number] [facility] [id number] [facility] 009 Branch 2021-05-20 2021-05-20 [facility] [id number] Univers 10:20:00 10:49:59 UYEN ortega o [facility] 2021-05-20 2021-05-20 [facility] 1.2.840.114 [id number] Univers 10:20:00 10:49:59 Visit Uyen LAU [id number] ity [facility] [id number] [facility] [id number] Or dical NAL 059 Branch BUILDING 2021-05-20 2021-05-[address] [facility] [id number] Univers 10:20:00 10:49:59 UYEN ortega o [facility] 2021-05-20 2021-05-20 [facility] [id number] Univers 10:20:00 10:20:00 UYEN mariano [facility] 2021-05-18 2021-05-18 Office Christina Lawton [facility] [id number] Univers 14:15:00 14:45:00 Visit E HEALTH [id number] it y of [place] [id number] [facility] - [id number] [facility] 201 Branch 2021-05-18 2021-05-18 Office Jered Christina [facility] [id number] Univers 14:15:00 14:45:00 Visit E HEALTH [id number] it y of [place] [id number] [facility] - [id number] [address] 2021-05-18 2021-05-18 Outpatient R CHRISTINA [facility]ON [facility] [id number] Univers 14:15:00 14:15:00 ity of [facility] 2021-05-18 2021-05-18 Outpatient R FARAZ [id number] Univers 14:15:00 14:15:00 ity of [facility] 2021-04-20 2021-04-20 Outpatient R CHRISTINA [facility] [id number] Univers 15:00:00 15:00:00 ity of [facility] 2021-04-13 2021-04-13 Outpatient R CHRISTINA [facility] [id number] Univers 10:15:19 23:59:00 ity of [facility] 2021-04-13 2021-04-13 [facility] Christina Lawton [facility] 1.2.840.114 [id number] Univers 10:15:19 23:59:00 Encounter E SPECIALTY 350.1.13.10 ity of CARE 4.2.7.2.[address] [facility] AT [phone] Or rodríguezmicah [facility] 2021-04-13 2021-04-13 Outpatient R CHRISTINA [facility] [id number] Univers 15:00:00 15:00:00 ity [facility] 2021-04-12 2021-04-12 Warren Christina Lawton [facility] 1.2.840.114 [id number] Univers 00:00:00 00:00:00 E HEALTH 350.1.13.10 [place] - [id number] [facility] [address] 2021-04-12 2021-04-12 Orders Doctor EDDIE 1.2.840.114 [id number] Univers 00:00:00 00:00:00 Only Unassigned, NEAL 350.1.13.10 ity of [place] [facility] 4.2.7.2.686 Gurdeep as [phone] [address] 2021-04-11 2021-04-11 [facility] 1.2.840.114 [id number] Univers 00:00:00 00:00:00 E HEALTH 350.1.13.10 [place] - [id number] [facility] [address] 2021-04-06 2021-04-06 Outpatient R CHRISTINA [facility] [id number] Univers 15:00:00 15:00:00 ity of [facility] 2021-03-22 2021-03-22 [facility] 1.2.840.114 [id number] Univers 00:00:00 00:00:00 E HEALTH 350.1.13.10 [place] [phone] [place] [address] [address] 2021-03-22 2021-03-22 Orders Doctor EDDIE 1.2.840.114 [id number] Univers 00:00:00 00:00:00 Only Unassigned, NEAL 350.1.13.10 ity of [place] [facility] 4.2.7.2.686 Gurdeep as [phone] [address] 2021-03-16 2021-03-16 Outpatient R CHRISTINA [facility] [id number] Univers 15:15:00 15:15:00 ity [facility] 2021-03-14 2021-03-14 [facility] 1.2.840.114 [id number] Univers 00:00:00 00:00:00 E HEALTH 350.1.13.10 [place] - [phone] Med ical [facility] [address] 2021-03-14 2021-03-14 Telephone Christina Lawton [facility] 1.2.840.114 [id number] Univers 00:00:00 00:00:00 E HEALTH 350.1.13.10 it y of CANCER 4.2.7.2.[address] [facility] - [id number] Med ical [facility] [address] 2021-03-11 2021-03-11 Telephone Christina Lawton [facility] 1.2.840.114 [id number] Univers 00:00:00 00:00:00 E HEALTH 350.1.13.10 it y of CANCER 4.2.7.2.686 [facility] - [id number] Med ical [facility] [address] 2021-03-10 2021-03-10 (TEL) STLC STLC [id number] Co mmon 00:00:00 00:00:00 Spirit - [facility] 2021-03-07 2021-03-07 Orders Doctor EDDIE 1.2.840.114 [id number] Univers 00:00:00 00:00:00 Only Unassigned, NEAL 350.1.13.10 ity of [place] [facility] 4.2.7.2.686 [facility] [phone] [place] [address] [address] 2021-03-01 2021-03-01 OFFICE STLMLC STLC [id number] Co mmon 00:00:00 00:00:00 VISIT Spirit ESTAB PT - CHI LEVEL 4 [facility] 2021-03-01 2021-03-01 SUB ANNUAL STLC STLC [id number] Common 00:00:00 00:00:00 MCR Spirit WELLNESS - CHI VISIT [facility] 2020-11-18 2020-11-18 OFFICE STLC STLMLC [id number] Co mmon 00:00:00 00:00:00 VISIT Spirit ESTAB PT - CHI LEVEL 4 [facility] 2020-09-02 2020-09-02 (TEL) STLC STLMLC [id number] Co mmon 00:00:00 00:00:00 [facility] - [facility] 2020-08-19 2020-08-19 Outpatient STLMLC STLMLC [id number] Common 00:00:00 00:00:00 [facility] 2020-08-18 2020-08-18 Outpatient STLMLC STLMLC [id number] Common 00:00:00 00:00:00 [facility] 2020-07-21 2020-07-21 Orders Doctor EDDIE 1.2.840.114 [id number] Univers 00:00:00 00:00:00 Only Unassigned, NEAL 350.1.13.10 ity of [place] [facility] 4.2.7.2.686 Gurdeep as [phone] [address] 2020-07-16 2020-07-16 Outpatient STLMLC STLMLC [id number] Common 00:00:00 00:00:00 [facility] 2020-07-16 2020-07-16 Outpatient STLMLC STLMLC [id number] Common 00:00:00 00:00:00 [facility] 2020-07-16 2020-07-16 Outpatient STLMLC STLMLC [id number] Common 00:00:00 00:00:00 [facility] 2020-05-21 2020-05-21 [facility] 1.2.840.114 [id number] Univers 10:45:53 11:32:46 Visit Uyen Lau 350.1.13.10 ity [facility] [place]7.2.[place] [phone] [place] [id number] [facility] 2020-05-21 2020-05-21 [facility] [id number] Univers 11:00:00 11:00:00 UYEN ortega o f [facility] 2020-05-21 2020-05-21 Orders Doctor MORGAN 1.2.840.114 [id number] Univers 00:00:00 00:00:00 Only Unassigned, NEAL 350.1.13.10 ity of [place] [facility] 4.2.7.2.686 Gurdeep as [phone] [address] 2020-04-29 2020-04-29 Outpatient STLMLC STLMLC [id number] Common 00:00:00 00:00:00 [facility] 2020-04-16 2020-04-16 Outpatient STLMLC STLMLC [id number] Common 00:00:00 00:00:00 [facility] 2020-04-16 2020-04-16 Outpatient STLMLC STLMLC [id number] Common 00:00:00 00:00:00 [facility] 2020-03-26 2020-03-26 Outpatient STLMLC STLMLC [id number] Common 00:00:00 00:00:00 [facility] 2020-01-06 2020-01-06 Outpatient STLMLC STLMLC [id number] Common 00:00:00 00:00:00 [facility] 2019-11-18 2019-11-18 Outpatient STLMLC STLMLC [id number] Common 00:00:00 00:00:00 [facility] 2019-05-29 2019-05-29 [facility] [id number] Common 13:45:00 13:45:00 [facility] 2019-05-01 2019-05-01 [facility] [id number] Common 14:00:00 14:00:00 [facility] 2019-03-26 2019-03-26 [facility] [id number] Common 13:38:00 13:38:00 t [facility] Bone and Spiri t and Joint [facility] - [facility] 2019-03-19 2019-03-19 [facility] [id number] Common 08:30:00 08:30:00 t [facility] Sp[facility] t and [facility] 2019-02-21 2019-02-21 [facility] [id number] Common 09:28:00 09:28:00 [facility] 2019-01-02 2019-01-02 Out[facility] [id number] Common 14:03:00 14:03:[address] [facility] 2018-12-19 2018-12-19 Out[facility] [id number] Common 08:20:00 08:20:[address] [facility] 2018-11-13 2018-11-13 Out[facility] [id number] Common 23:10:00 23:10:[address] [facility] 2018-11-13 2018-11-13 Out[facility] [id number] Common 16:20:00 16:20:[address] [facility] 2018-09-16 2018-09-16 Out[facility] [id number] Common 13:55:00 13:55:[address] [facility] 2018-09-16 2018-09-16 Out[facility] [id number] Common 08:20:00 08:20:[address] [facility] 2018-08-05 2018-08-05 Outpatient [facility] [id number] Common 09:08:00 09:08:[address] [facility] 2018-06-12 2018-06-12 Outpatient [facility] [id number] Common 11:49:00 11:49:00 t Bone Bone and Spiri t and Joint [facility] - [facility] 2018-06-12 2018-06-12 [facility] [id number] Common 08:30:00 08:30:00 t Bone Bone and Spiri t and Joint [facility] 2018-06-04 2018-06-04 [facility] [id number] Common 09:24:00 09:24:00 t Bone Bone and Spiri t and Joint [facility] 2018-05-31 2018-05-31 Outpatient Renae Macdonaldt [id number] Common 10:16:00 10:16:00 t Bone Bone and Spiri t and Joint [facility] - [facility] 2018-05-27 2018-05-27 [place]patient [facility] [place] [id number] Common 10:00:00 10:00:00 t Bone Bone and Spiri t and Joint [facility] 2018-05-21 2018-05-21 Outpatient Renae Lyon [id number] Common 15:00:00 15:00:00 [facility] 2018-04-08 2018-04-08 Outpatient Renae Macdonaldt [id number] Common 08:30:00 08:30:00 [facility] Results This patient has no known results.
[2022-11-30] MEDS ORDERED: KETOROLAC 30 MG/ML INJ ONE (16:54)
--- NOTE | 2022-11-30 17:00 | RAD REPORT ---
EXAM DESCRIPTION: RAD - Knee Right 3 View - 11/30/2022 4:40 pm CLINICAL HISTORY: pain; swelling COMPARISON: Knee Right 3 View dated 01/02/2017; Knee Right 2 View dated 10/26/2016 TECHNIQUE: Right knee, 3 views. FINDINGS: Stable fusion hardware along the lateral aspect of the proximal tibia. Comminuted fracture of the patella, with some superior displacement of the proximal fragment. Basn-hc-pedhqtja joint eff usion. Anterior soft tissue swelling. No soft tissue abnormality. IMPRESSION: Comminuted fracture of the patella with some superior displacement of the proximal fragm ent.
--- NOTE | 2022-11-30 17:15 | ER ---
Nurse's Notes [facility] Name: Kaylynn Galindo Age: 82 yrs Sex: Female : 1940 Arrival Date: 11/30/2022 Time: 15:53 Bed 15 Private MD: Diagnosis: Displaced comminuted fracture of right patella Presentation: 11/30 15:54 Chief complaint: EMS states: "toned out for right knee pain after falling in [place]. Pt mb9 denies LOC/hitting head. Pt does take Plavix.". Coronavirus screen: At this time, the client does not indicate any symptoms associated with coronavirus-19. Ebola Screen: No symptoms or risks identified at this time. Initial Sepsis Screen: Does the patient meet any 2 criteria? No. Patient's initial sepsis screen is negative. Does the patient have a suspected source of infection? No. Patient's initial sepsis screen is negative. Risk Assessment: Do you want to hurt yourself or someone else? Patient reports no desire to harm self or others. Onset of symptoms was November 30, 2022. 15:54 Method Of Arrival: EMS: [facility] mb9 15:54 Acuity: ALEXUS 4 mb9 Triage Assessment: 15:58 General: Appears in no apparent distress. Behavior is calm, cooperative. Pain: mb9 Complains of pain in right patella Pain radiates to right leg Quality of pain is described as throbbing, Pain began suddenly, Aggravated by increased activity, repositioning, weight bearing. EENT: No signs and/or symptoms were reported regarding the EENT system. Neuro: Wright Agitation-Sedation Scale (RASS): 0 - Alert and Calm Level of Consciousness is awake, alert, obeys commands, Oriented to person, place, time, situation, Appropriate for age. Cardiovascular: Patient's skin is warm and dry. Respiratory: Airway is patent Respiratory effort is even, unlabored, Respiratory pattern is regular, symmetrical. GI: No signs and/or symptoms were reported involving the gastrointestinal system. : No signs and/or symptoms were reported regarding the genitourinary system. Derm: Skin is pink, warm \\T\\ dry. Musculoskeletal: Range of motion: intact in all extremities, Swelling present in right patella. Historical: - Allergies: 15:56 Codeine; mb9 15:56 Sulfa (Sulfonamide Antibiotics); mb9 - Home Meds: 15:56 clopidogrel 75 mg Oral tab 1 tab once daily [Active]; metformin 500 mg Oral tr24 0.5 mb9 tab once daily for Type 2 Diabetes Mellitus [Active]; aspirin 81 mg Oral chew 1 tab once daily [Active]; 19:10 amlodipine 5 mg oral tablet [Active]; carvedilol 12.5 mg oral tablet once for mb9 hypertension [Active]; rosuvastatin 20 mg oral tablet 1 tab once [Active]; - PMHx: 15:56 breast cancer; Diabetes - NIDDM; Hypertension; Mild OK; mb9 - PSHx: 15:57 right knee; mb9 - Immunization history:: Adult Immunizations up to date. - Social history:: Smoking status: Patient denies any tobacco usage or history of. Screenin:59 [facility] ED Fall Risk Assessment (Adult) History of falling in the last 3 months, mb9 including since admission Yes- single mechanical fall (1 pt) Confusion or Disorientation No (0 pts) Intoxicated or Sedated No (0 pts) Impaired Gait Mobility Assist Device Used No (0 pt) Altered Elimination No (0 pt) Score/Fall Risk Level 0 - 2 = Low Risk Oriented to surroundings, Maintained a safe environment, Educated pt \\T\\ family on fall prevention, incl call for assistance when getting out of bed. Abuse screen: Denies threats or abuse. Nutritional screening: No deficits noted. Tuberculosis screening: No symptoms or risk factors identified. Assessment: 15:59 Reassessment: see triage assessment. mb9 16:45 Reassessment: No changes from previously documented assessment. Patient and/or family mb9 updated on plan of care and expected duration. Pain level reassessed. Patient is alert, oriented x 3, equal unlabored respirations, skin warm/dry/pink. 17:45 Reassessment: Patient and/or family updated on plan of care and expected duration. Pain mb9 level reassessed. Patient is alert/active/playful, equal unlabored respirations, skin warm/dry/pink. Patient states feeling better. Patient states symptoms have improved. 18:45 Reassessment: No changes from previously documented assessment. Patient and/or family mb9 updated on plan of care and expected duration. Pain level reassessed. Patient is alert, oriented x 3, equal unlabored respirations, skin warm/dry/pink. 19:45 Reassessment: No changes from previously documented assessment. Patient and/or family mb9 updated on plan of care and expected duration. Pain level reassessed. Patient is alert, oriented x 3, equal unlabored respirations, skin warm/dry/pink. Vital Signs: 15:54 BP 168 / 82; Pulse 72; Resp 16; Temp 97.7; Pulse Ox 98% on R/A; Weight 90.72 kg; Height mb9 5 ft. 7 in. ; 16:45 BP 151 / 90; Pulse 75; Resp 16; Pulse Ox 100% on R/A; mb9 17:44 BP 148 / 80; Pulse 74; Resp 18; Pulse Ox 100% on R/A; mb9 19:09 BP 188 / 90; Pulse 62; Resp 18; Pulse Ox 100% on R/A; mb9 20:26 BP 167 / 85; Pulse 61; Resp 18; Pulse Ox 100% on R/A; mb9 15:54 Body Mass Index 31.32 (90.72 kg, 170.18 cm) mb9 ED Course: 15:53 Patient arrived in ED. mb9 15:54 Arm band placed on. mb9 15:56 Triage completed. mb9 15:59 Placed in gown. Bed in low position. Call light in reach. Side rails up X 1. Client mb9 placed on continuous cardiac and pulse oximetry monitoring. NIBP monitoring applied. 15:59 No provider procedures requiring assistance completed. mb9 16:00 Tammy Ferrera, RN is Primary Nurse. mb9 16:01 [facility] jh7 16:01 Silvestre Solo MD is Attending Physician. jh7 16:42 Knee Right 3 View In Process Unspecified. EDMS 17:13 Octaviano Valentin MD is Referral Physician. jh7 17:45 IV discontinued, intact, bleeding controlled, No redness/swelling at site. Pressure mb9 dressing applied. 18:30 Alverto Holguin is Hospitalizing Provider. jh7 Administered Medications: 16:44 Drug: Ketorolac IM 30 mg IM once Route: IM; Site: right deltoid; mb9 17:13 Follow up: Response: No adverse reaction mb9 Medication: 15:59 VIS not applicable for this client. mb9 Outcome: 17:14 Discharge ordered by . jh7 18:30 Decision to Hospitalize by Provider. Merry 20:54 Admitted to Med/surg accompanied by tech, via stretcher, room 202, with chart, Report kun called to ARAM Escobedo 20:54 Condition: stable 20:54 Instructed on the need for admit, 21:01 Patient left the ED. kun Signatures: Dispatcher [employer] EDKatelynn Chua, INFORMATION CLERK BROKERAGE INFORMATION CLERK BROKERAGE Tammy Walker, RN RN [email or web address] Corrections: (The following items were deleted from the chart) 15:58 15:56 PSHx: right knee (Mild OK); kun tristan 19:09 17:45 Condition: stable kun tristan 19: 17:45 Discharged to home with family, kun tristan 19: 17:45 Discharge instructions given to patient, Instructed on discharge instructions, kun follow up and referral plans. Demonstrated understanding of instructions, follow-up care, medications, Prescriptions given X 1, kun 19:12 15:56 Home Meds: amlodipine 10 mg tab 1 tab once daily for Hypertension; kun tristan 19:12 17:45 Reassessment: Discharge pending ride home kun tristan
--- NOTE | 2022-11-30 17:15 | EDPHYS ---
Physician Documentation [facility] Name: Kaylynn Galindo Age: 82 yrs Sex: Female : 1940 Arrival Date: 11/30/2022 Time: 15:53 Bed 15 Private MD: ED Physician Silvestre Solo HPI: 11/30 15:50 This 82 yrs old Black Female presents to ER via EMS with complaints of R knee pain-post jh7 fall. 15:50 The patient presents with decreased range of motion, pain, that is acute, swelling, jh7 tenderness. The complaints affect the right knee. Context: The problem was sustained at a store, resulted from the patient falling, while walking, the patient is not able to bear weight, must have assistance, Problem is a result from a previous injury: Yes. Onset: The symptoms/episode began/occurred acutely. 82-year-old female presents to the ER status post fall. She states she was walking in [place] and tripped, falling on her right knee. Reports a history of surgery on that same knee in 2015. Limited range of motion secondary to pain.. Historical: - Allergies: 15:56 Codeine; mb9 15:56 Sulfa (Sulfonamide Antibiotics); mb9 - Home Meds: 15:56 clopidogrel 75 mg Oral tab 1 tab once daily [Active]; metformin 500 mg Oral tr24 0.5 mb9 tab once daily for Type 2 Diabetes Mellitus [Active]; aspirin 81 mg Oral chew 1 tab once daily [Active]; 19:10 amlodipine 5 mg oral tablet [Active]; carvedilol 12.5 mg oral tablet once for mb9 hypertension [Active]; rosuvastatin 20 mg oral tablet 1 tab once [Active]; - PMHx: 15:56 breast cancer; Diabetes - NIDDM; Hypertension; Mild AK; mb9 - PSHx: 15:57 right knee; mb9 - Immunization history:: Adult Immunizations up to date. - Social history:: Smoking status: Patient denies any tobacco usage or history of. ROS: 15:50 Constitutional: Negative for fever, chills, and weight loss, Eyes: Negative for injury, jh7 pain, redness, and discharge, Neck: Negative for injury, pain, and swelling, Respiratory: Negative for shortness of breath, cough, wheezing, and pleuritic chest pain, Abdomen/GI: Negative for abdominal pain, nausea, vomiting, diarrhea, and constipation, Back: Negative for injury and pain, Skin: Negative for injury, rash, and discoloration, Neuro: Negative for headache, weakness, numbness, tingling, and seizure, 15:50 MS/extremity: Positive for injury or acute deformity, pain, swelling, tenderness, of the right knee, 15:50 All other systems are negative, Exam: 15:50 Constitutional: This is a well developed, well nourished patient who is awake, alert, jh7 and in no acute distress. Head/Face: Normocephalic, atraumatic. Neck: Trachea midline, no thyromegaly or masses palpated, and no cervical lymphadenopathy. Supple, full range of motion without nuchal rigidity, or vertebral point tenderness. No Meningismus. Cardiovascular: Regular rate and rhythm with a normal S1 and S2. No gallops, murmurs, or rubs. Normal PMI, no JVD. No pulse deficits. Respiratory: Lungs have equal breath sounds bilaterally, clear to auscultation and percussion. No rales, rhonchi or wheezes noted. No increased work of breathing, no retractions or nasal flaring. Abdomen/GI: Soft, non-tender, with normal bowel sounds. No distension or tympany. No guarding or rebound. No evidence of tenderness throughout. Back: No spinal tenderness. No costovertebral tenderness. Full range of motion. Skin: Warm, dry with normal turgor. Normal color with no rashes, no lesions, and no evidence of cellulitis. Neuro: Awake and alert, GCS 15, oriented to person, place, time, and situation. 15:50 Musculoskeletal/extremity: Extremities: noted in the right knee: decreased ROM, pain, swelling, tenderness, ROM: limited active range of motion due to pain, in the right knee, Circulation is intact in all extremities. Perfusion: the extremity is normally perfused throughout, pink, warm, with brisk capillary refill, Sensation intact. Weight bearing: can bear weight with assistance only, Vital Signs: 15:54 BP 168 / 82; Pulse 72; Resp 16; Temp 97.7; Pulse Ox 98% on R/A; Weight 90.72 kg; Height mb9 5 ft. 7 in. ; 16:45 BP 151 / 90; Pulse 75; Resp 16; Pulse Ox 100% on R/A; mb9 17:44 BP 148 / 80; Pulse 74; Resp 18; Pulse Ox 100% on R/A; mb9 19:09 BP 188 / 90; Pulse 62; Resp 18; Pulse Ox 100% on R/A; mb9 20:26 BP 167 / 85; Pulse 61; Resp 18; Pulse Ox 100% on R/A; mb9 15:54 Body Mass Index 31.32 (90.72 kg, 170.18 cm) [facility] MDM: 16:01 Patient medically screened. 7 17:05 Differential diagnosis: dislocation, closed fracture, contusion. Data reviewed: vital [facility] signs, nurses notes, radiologic studies, plain films. I considered the following discharge prescriptions or medication management in the emergency department Medications were administered in the Emergency Department. See MAR. Care significantly affected by the following chronic conditions: Diabetes, Hypertension. Counseling: I had a detailed discussion with the patient and/or guardian regarding the historical points, exam findings, and any diagnostic results supporting the discharge/admit diagnosis, the need for outpatient follow up, a orthopedic surgeon, to return to the emergency department if symptoms worsen or persist or if there are any questions or concerns that arise at home. Special discussion: Based on the history and exam findings, there is no indication for further emergent testing or inpatient evaluation. I discussed with the patient/guardian the need to see the orthopedic surgeon for further evaluation of the symptoms. 18:20 Consideration of Admission/Observation Patient was admitted/placed on observation. [facility] Management of patient was discussed with the following: Hospitalist: ABENA Durand, who accepted the patient. ED course: Spoke to Farideh, the patient's daughter. She is the medical power of consumer attorney and was very upset at the patient being discharged. She stated that the patient lives alone and was unable to walk and would likely end up in the ER again due to another fall. She stated that although the patient's son was there to pick her up, he had medical issues of his own, and she was concerned that he would be unable to take care of her.. 11/30 16:24 Order name: Knee Right 3 View; Complete Time: 17:01 EDOH 11/30 17:03 Order name: Knee Immobilizer; Complete Time: 17:44 [facility] Administered Medications: 16:44 Drug: Ketorolac IM 30 mg IM once Route: IM; Site: right deltoid; mb9 17:13 Follow up: Response: No adverse reaction mb9 Disposition Summary: 11/30/22 18:30 Hospitalization Ordered Notes: Hospitalization Status: Inpatient Admission [facility] Provider: Alverto Holguin Location: Telemetry/MedSurg (Inpatient)(11/30/22 18:30) [facility] Condition: Fair(11/30/22 18:30) [facility] Problem: new(11/30/22 18:30) [facility] Symptoms: are unchanged(11/30/22 18:30) [facility] Bed/Room Type: Standard [facility] Room Assignment: 202(11/30/22 20:12) Diagnosis - Displaced comminuted fracture of right patella(11/30/22 18:30) [facility] Forms: - Medication Reconciliation Form [facility] - SBAR form [facility] - Leadership Thank You Letter [facility] Signatures: Dispatcher [employer] EDSherie Garcia RN RN Katelynn Christopher FNP VALIDATION ANALYST [facility] Tammy Ferrera RN RN mb9 Corrections: (The following items were deleted from the chart) 15:58 15:56 PSHx: right knee (Mild AK); mb9 mb9 16:40 16:30 Knee Right 3 View+RAD.RAD.BRZ ordered. EDOH EDMS 17:23 17:07 Misc. Order ordered. [facility] 18:29 17:14 [place] [id number] 18:29 17:14 [place] [id number] 18:29 17:14 are unchanged [place] [id number] 18:29 17:14 Stable [place] [id number] 18:29 17:14 Displaced comminuted fracture of right patella [place] [address] 19:12 15:56 Home Meds: amlodipine 10 mg tab 1 tab once daily for Hypertension; mb9 mb9 20:12 18:30 [facility] cg
[2022-11-30] MEDS: HYDRALAZINE HCL 10 MG TABLET PO PRN (19:10)
[2022-11-30] MEDS: HYDROCODONE/APAP 7.5/325 MG TAB PO PRN (19:10)
[2022-11-30] MEDS ORDERED: HYDRALAZINE HCL 25 MG TABLET ONE (19:16)
[2022-11-30] MEDS ORDERED: HYDROCODONE/APAP 7.5/325 MG TAB ONE (19:16)
--- NOTE | 2022-11-30 19:33 | P.HP ---
Certification for Inpatient Patient admitted to: Observation With expected LOS: <2 Midnights Patient will require the following post-hospital care: None Practitioner: I am a practitioner with admitting privileges, knowledge of patient current condition, hospital course, and medical plan of care. Services: Services provided to patient in accordance with Admission requirements found in Title 42 Section 412.3 of the Code of Federal Regulations Patient History Date of Service: 11/30/22 Reason for admission: fall, knee pain History of Present Illness: 82-year-old -[place] female with a past medical history of hypertension, hyperlipidemia, diabetes, [place], presents to the emergency room with pain swelling to the right lower extremity. She reports mechanical fall sustained at the grocery store. sustained Displaced comminuted fracture of right patella, she was placed in immobilizer in the emergency room told to follow-up with patient Ortho outpatient. She reports her right knee pain worse with ambulation, movement, she reports intractable pain 10 out of 10. She reports she lives alone unable to care for herself at home. She reports right surgical knee history same knee previously 2016. However patient says reports intractable pain, immobility at discharge from the emergency room. Plan to admit for intractable pain, - Displaced comminuted fracture of right patella fall, for discharge planning in the a.m. Allergies codeine [Codeine] Allergy (Verified 03/12/20 22:35) Unknown Sulfa (Sulfonamide Antibiotics) Allergy (Verified 03/12/20 22:35) Unknown Home Medications: Amlodipine Besylate 10 mg PO DAILY 05/22/15 Metformin HCl [Glucophage*] 500 mg PO DAILY 05/22/15 Aspirin [Aspirin EC 81 MG] 81 mg PO DAILY #30 tablet. 12/26/15 Rosuvastatin [Crestor*] 40 mg PO BEDTIME 03/22/16 Clopidogrel Bisulfate [Plavix*] 75 mg PO DAILY 03/13/20 Isosorbide Mononitrate [Isosorbide Mononitrate ER] 30 mg PO DAILY 03/13/20 Metoprolol Tartrate [Lopressor*] 50 mg PO BID 03/13/20 - Past Medical/Surgical History Diabetic: Yes -: History of TIA -: History of breast cancer -: Hypertension -: Diabetes mellitus type 2 -: Hyperlipidemia -: Coronary artery disease, history of [place] -: Benign brain tumor removed -: Hysterectomy -: Benign brain tumor removed -: Left lower extremity repair, L leg-gold and pins -: Left breast mastectomy -: Back surgery -: Bunion surgery Psychosocial/ Personal History: She is a , has 5 children. She lives by herself - Family History Father -: Stroke, Cancer Sister -: Other (see notes) Notes: special needs; - Social History Alcohol use: No CD- Drugs: No Caffeine use: Yes Review of Systems 10-point ROS is otherwise unremarkable Physical Examination - Physical Exam General: Alert, Oriented x3, Acute distress, Other (intactable pain) HEENT: Atraumatic, Normocephalic Neck: Supple, 2+ carotid pulse no bruit Respiratory: Clear to auscultation bilaterally, Normal air movement Cardiovascular: No edema, Normal pulses, Regular rate/rhythm Capillary refill: <2 Seconds Gastrointestinal: Normal bowel sounds, Soft and benign Musculoskeletal: Other (RLE knee immobilizer, ) Integumentary: No rashes, No breakdown Neurological: Normal speech, Normal tone, Sensation intact Assessment and Plan - Plan Assessment plan intractable pain Displaced comminuted fracture of right patella Mechanical fall hypertension hyperlipidemia diabetes History [place] Assessment plan intractable pain Displaced comminuted fracture of right patella Mechanical fall PT eval, as needed pain meds, Case management for discharge planning hypertension hyperlipidemia diabetes History [place] Resume appropriate home medications diet cardiac Full Code DVT SCD . Discharge Plan: Home Plan to discharge in: 24 Hours - Advance Directives Does patient have a Living Will: No Does patient have a Durable POA for Healthcare: No - Code Status/Comfort Care Code Status: Full Code Physician Review: Patient Assessed, Agree with Above Assessment and Plan Critical Care: No Time Spent Managing Pts Care (In Minutes): 50
[2022-11-30] MEDS ORDERED: GLUCAGON 1 MG/VIAL IM PRN (20:27)
[2022-11-30] MEDS ORDERED: ONDANSETRON 4 MG (ODT) TAB PO PRN (20:27)
[2022-11-30] MEDS ORDERED: D50W 25 GM/50 ML SYRINGE IV PRN (20:27)
[2022-11-30] MEDS ORDERED: D10W 125 ML IV PRN (20:33)
[2022-11-30] MEDS: INSULIN REGULAR (HUMAN) 100 UNIT/ML SQ SCH (21:00)
[2022-11-30] MEDS: ALPRAZOLAM 0.25 MG TABLET PO PRN (23:12)
[2022-12-01 00:46] VITALS: BMI 27.5
[2022-12-01] MEDS: HYDROCODONE/APAP 7.5/325 MG TAB PO PRN ×2 (05:48→12:09)
[2022-12-01] MEDS: INSULIN REGULAR (HUMAN) 100 UNIT/ML SQ SCH ×4 (07:30→21:00)
[2022-12-01] MEDS ORDERED: PNEUMOCOCCAL VACCINE 0.5 ML IMVAC ONE (08:00)
[2022-12-01] MEDS ORDERED: INFLUENZA VACCINE (for 6+ mo) 0.5 ML DOSE IMVAC ONE (08:00)
[2022-12-01] MEDS: carvediloL 12.5 MG TAB PO SCH ×2 (09:25→20:40)
[2022-12-01] MEDS: ASPIRIN EC 81 MG TAB PO SCH (09:26)
[2022-12-01] MEDS: HYDRALAZINE HCL 10 MG TABLET PO PRN (09:26)
[2022-12-01] MEDS: CLOPIDOGREL 75 MG TABLET PO SCH (09:26)
[2022-12-01] MEDS ORDERED: MORPHINE 2 MG/ML SYR IV PRN (13:51)
--- NOTE | 2022-12-01 14:50 | P.PN ---
Subjective Date of Service: 12/01/22 Chief Complaint: fall, knee pain Patient is complaining of uncontrolled pain in the right knee. She was not able to stand with therapy due to pain. Physical Examination - Vital Signs Temperature: 97.2 F Blood Pressure: 179/83 Pulse: 64 Respirations: 14 Pulse Ox (%): 98 Assessment And Plan - Plan Physical Exam General: Alert, Oriented x3, NAD. Neck: Supple, 2+ carotid pulse no bruit Respiratory: Clear to auscultation bilaterally, Normal air movement Cardiovascular: No edema, Normal pulses, Regular rate/rhythm Gastrointestinal: Normal bowel sounds, Soft and benign Musculoskeletal: RLE knee immobilizer. Integumentary: No rashes, No breakdown Neurological: Normal speech, Normal tone, Sensation intact Diagnosis intractable pain Displaced comminuted fracture of right patella Mechanical fall hypertension hyperlipidemia diabetes History PR Plan intractable pain Displaced comminuted fracture of right patella Mechanical fall Check labs-CMP and CBC. Case discussed with orthopedic on-call Dr. Joy who recommend CT of the right knee for more detailed evaluation Obtain CT of right knee with IV contrast pending CMP results. Pain management with oral [place] and IV morphine. Right knee is in immobilizer PT as tolerated Case management consulted for discharge planning hypertension hyperlipidemia diabetes History PR Continue home medications diet cardiac Full Code DVT SCD
[2022-12-01 15:45] LABS: Magnesium 2.6 mg/dL (1.6-2.4); Phosphorus 3.4 mg/dL (2.5-4.9)
[2022-12-01] MEDS: ALPRAZOLAM 0.25 MG TABLET PO PRN (20:40)
[2022-12-01] MEDS: ROSUVASTATIN 10 MG TAB PO SCH (20:40)
[2022-12-02 06:19] LABS: Absolute Lymphocytes (CBC) 2.5 K/uL (0.7-4.9); Hematocrit 37.8 % (36.0-45.0); Lymphocytes % 39.5 % (15.3-44.8); MCV 88.7 fL (80-100); Platelets 186 thou/uL (152-406); RBC Red Blood Cell Count 4.26 M/uL (3.86-4.86)
[2022-12-02 06:38] LABS: Bilirubin Total 0.4 mg/dL (0.2-1.0); Potassium 3.7 mEq/L (3.5-5.1); Protein, Total 6.7 g/dL (6.4-8.2)
[2022-12-02] MEDS: INSULIN REGULAR (HUMAN) 100 UNIT/ML SQ SCH ×4 (07:30→20:31)
[2022-12-02] MEDS: carvediloL 12.5 MG TAB PO SCH ×2 (08:35→20:31)
[2022-12-02] MEDS: CLOPIDOGREL 75 MG TABLET PO SCH (08:36)
[2022-12-02] MEDS: ASPIRIN EC 81 MG TAB PO SCH (08:36)
[2022-12-02] MEDS: HYDROCODONE/APAP 10/325 TAB PO PRN ×2 (09:55→22:24)
--- NOTE | 2022-12-02 10:25 | RAD REPORT ---
EXAM DESCRIPTION: CT - Knee Right Wo Cont - 12/02/2022 9:32 am CLINICAL HISTORY: Knee cap fracture COMPARISON: Knee Right Wo Cont dated 03/21/2016; Knee Right 3 View dated 11/30/2022 TECHNIQUE: Thin cut axial CT imaging of the right knee was performed without IV contrast. Multiplana r reformats were generated and reviewed. All CT scans are performed using dose optimization technique as appropriate and may include automated exposure control or mA/KV adjustment according to patient size. FINDINGS: Comminuted, displaced patellar fracture, with a degree of distraction across the major fra gments, not exceeding 1 cm between any 2 fragments. Limited soft tissue swelling in the vicinity of t he fracture fragments and probable small hemarthrosis. Plate and screw fixation along the proximal lateral tibial epiphyseal/metaphyseal cortex, in satisfac tory alignment. Up to moderate degenerative changes at the tibiotalar articulations with moderate medial joint space narrowing. No other suspicious osseous lesions. No soft tissue gas. IMPRESSION: Comminuted, displaced, patellar fracture. Probable small hemarthrosis. Other chronic findings as above.
--- NOTE | 2022-12-02 13:32 | P.PN ---
Subjective Date of Service: 12/02/22 Chief Complaint: fall, knee pain Patient states her right knee pain is better. Physical Examination - Vital Signs Temperature: 97.7 F Blood Pressure: 199/74 Pulse: 61 Respirations: 16 Pulse Ox (%): 96 Assessment And Plan - Plan Physical Exam General: Alert, Oriented x3, NAD. Respiratory: Clear to auscultation bilaterally, Normal air movement Cardiovascular: No edema, Normal pulses, Regular rate/rhythm Gastrointestinal: Normal bowel sounds, Soft and benign Musculoskeletal: RLE knee immobilizer. Integumentary: No rashes, No breakdown Neurological: Normal speech, Normal tone, Sensation intact Diagnosis Intractable pain Displaced comminuted fracture of right patella Mechanical fall hypertension hyperlipidemia diabetes History [place] Plan intractable pain Displaced comminuted fracture of right patella Mechanical fall CT of the right knee confirms comminuted fracture of the right patella. Dr. Joy is reviewing. Pain management with oral [place] and IV morphine. Right knee is in immobilizer PT as tolerated Case management consulted for discharge planning. Anticipating home with home health. hypertension hyperlipidemia diabetes History [place] Continue home medications diet cardiac Full Code DVT SCD
[2022-12-02] MEDS ORDERED: HYDRALAZINE HCL 20 MG/ML VIAL IV PRN (16:34)
[2022-12-02] MEDS: AMLODIPINE 5 MG TAB PO SCH (17:17)
[2022-12-02] MEDS: ALPRAZOLAM 0.25 MG TABLET PO PRN (20:31)
[2022-12-02] MEDS: ROSUVASTATIN 10 MG TAB PO SCH (20:31)
--- NOTE | 2022-12-03 07:20 | CON ---
Date of Consultation: 12/02/2022 Reason For Consultation: Right knee pain. History Of Present Illness: The patient is an 82-year-old female who was admitted from the ER after sustaining a fall onto her right knee with subsequent pain and inability to bear weight. The patient had x-rays that demonstrated a comminuted patella fracture with displacement. The patient is unable to ambulate safely at this time and lives on her own at home. She has history of right lower extrem ity tibial plateau fracture, had fixation multiple years ago, had no acute problems with that procedu re. She reports pain and weakness to her right lower extremity at this time. Review of Systems: As above, otherwise negative. Past Medical History: Includes hypertension, hyperlipidemia, diabetes, coronary artery disease. Past Surgical History: Right knee surgery, back surgery, bunion surgery, left breast mastectomy, lef t lower extremity surgery, hysterectomy. Medications: Amlodipine, metformin, aspirin, Crestor, Plavix, metoprolol. Allergies: TO CODEINE AND SULFA. Family History: Reviewed and noncontributory. Physical Examination: General: No apparent distress. HEENT: Normocephalic, atraumatic. Neck: Supple. Cardiovascular: Brisk cap refill to all digits. Chest: Nonlabored breathing. Abdomen: Nondistended. Psychiatric: Responsive to exam. Musculoskeletal: Bilateral upper extremities functional range of motion without pain, no gross defor mities. No obvious dislocations. Left lower extremity functional range of motion without pain, no g ross deformities, no obvious dislocations. Right lower extremity tenderness to palpation over the pa tella. Weakness of the quadriceps. No active straight leg raise at this time. Stable to varus and valgus stress. Moderate effusion. Diagnostics: X-rays and CAT scan demonstrate a comminuted right patella fracture approximately 5 mm in displacement. Assessment And Plan: The patient is an 82-year-old female with a right comminuted patellar fracture. I discussed with the patient at length risks and benefits associated with operative and non-operati ve treatment measures. We discussed a trial of nonoperative treatment including physical therapy and continue the knee immobilizer to minimize any further placement. The patient may be weightbearing a s tolerated in a knee immobilizer and will follow up, currently we are waiting placement into possibl e inpatient rehabilitation. We will continue to monitor the patient's examination. We discussed patrick t if she is unable to perform a straight leg raise, we would likely need to proceed with open reducti on internal fixation. The patient expressed understanding. Patient may follow up in my clinic later this week if she is discharged. CV/ASHLEY Voice ID: [id number] Report ID: [id number]
[2022-12-03] MEDS: INSULIN REGULAR (HUMAN) 100 UNIT/ML SQ SCH ×4 (07:25→20:43)
[2022-12-03] MEDS: CLOPIDOGREL 75 MG TABLET PO SCH (08:53)
[2022-12-03] MEDS: ASPIRIN EC 81 MG TAB PO SCH (08:53)
[2022-12-03] MEDS: carvediloL 12.5 MG TAB PO SCH ×2 (08:54→20:42)
[2022-12-03] MEDS: AMLODIPINE 5 MG TAB PO SCH (08:54)
[2022-12-03] MEDS: HYDROCODONE/APAP 10/325 TAB PO PRN (10:18)
--- NOTE | 2022-12-03 12:59 | P.PN ---
Subjective Date of Service: 12/03/22 Chief Complaint: fall, knee pain Patient states her right knee pain is better and was able to stand up, walk in the room with a walker during PT yesterday. Physical Examination - Vital Signs Temperature: 97.6 F Blood Pressure: 119/69 Pulse: 60 Respirations: 16 Pulse Ox (%): 96 Assessment And Plan - Plan Physical Exam General: Alert, Oriented x3, NAD. Respiratory: Clear to auscultation bilaterally, Normal air movement Cardiovascular: No edema, Normal pulses, Regular rate/rhythm Gastrointestinal: Normal bowel sounds, Soft and benign Musculoskeletal: RLE knee immobilizer. Integumentary: No rashes, No breakdown Neurological: Normal speech, Normal tone, Sensation intact Diagnosis Intractable pain Displaced comminuted fracture of right patella Mechanical fall hypertension hyperlipidemia diabetes History [place] Plan intractable pain Displaced comminuted fracture of right patella Mechanical fall CT of the right knee confirms comminuted fracture of the right patella. Dr. Joy is reviewing. Pain management with oral [place] and IV morphine. Right knee is in immobilizer PT as tolerated Case management consulted for discharge planning. Increase activity as tolerated. hypertension hyperlipidemia diabetes History [place] Continue home medications diet cardiac Full Code DVT SCD
[2022-12-03] MEDS: ROSUVASTATIN 10 MG TAB PO SCH (20:43)
[2022-12-04] MEDS: INSULIN REGULAR (HUMAN) 100 UNIT/ML SQ SCH ×4 (07:30→21:00)
[2022-12-04] MEDS: ASPIRIN EC 81 MG TAB PO SCH (09:54)
[2022-12-04] MEDS: CLOPIDOGREL 75 MG TABLET PO SCH (09:54)
[2022-12-04] MEDS: carvediloL 12.5 MG TAB PO SCH ×2 (09:54→22:00)
[2022-12-04] MEDS: AMLODIPINE 5 MG TAB PO SCH (09:55)
--- NOTE | 2022-12-04 13:24 | P.PN ---
Subjective Date of Service: 12/04/22 Chief Complaint: fall, knee pain Patient ambulated about 20 feet with PT today. She states her pain is better controlled. She is still needing a lot of assistance with transfer. Physical Examination - Vital Signs Temperature: 97.6 F Blood Pressure: 145/73 Pulse: 64 Respirations: 16 Pulse Ox (%): 99 Assessment And Plan - Plan Physical Exam General: Alert, NAD. Respiratory: Clear to auscultation bilaterally, Normal air movement Cardiovascular: No edema, Normal pulses, Regular rate/rhythm Gastrointestinal: Normal bowel sounds, Soft and benign Musculoskeletal: RLE knee immobilizer. Integumentary: No rashes, No breakdown Neurological: Normal speech, Normal tone, Sensation intact Diagnosis Intractable pain Displaced comminuted fracture of right patella Mechanical fall hypertension hyperlipidemia diabetes History [place] Plan intractable pain Displaced comminuted fracture of right patella Mechanical fall CT of the right knee confirms comminuted fracture of the right patella. Case discussed with Dr. Joy who would like to reevaluate patient within 2 days for need for surgery. Pain management with oral [place] and IV morphine. Right knee is in immobilizer PT as tolerated Case management consulted for discharge planning-she is being evaluated for inpatient rehab. Increase activity as tolerated. hypertension hyperlipidemia diabetes History [place] Continue home medications diet cardiac Full Code DVT SCD
[2022-12-04] MEDS: ROSUVASTATIN 10 MG TAB PO SCH (22:00)
[2022-12-05 03:41] LABS: Absolute Lymphocytes (CBC) 1.8 K/uL (0.7-4.9); Hematocrit 35.1 % (36.0-45.0); Lymphocytes % 22.1 % (15.3-44.8); MCV 87.2 fL (80-100); MPV 9.2 fL (7.6-11.3); Platelets 194 thou/uL (152-406); RBC Red Blood Cell Count 4.02 M/uL (3.86-4.86)
[2022-12-05 04:02] LABS: Potassium 3.6 mEq/L (3.5-5.1)
--- NOTE | 2022-12-05 06:55 | P.PN ---
Date of Service: 12/05/22 Subjective: working with PT; slowly improving but currently unsafe at home alone per PT note yesterday +fatigued after walking 10-20 ft with walker; needing breaks asking for smaller Knee immobilizer Knee pain is slowly improving no trouble urinating; no diarrhea no new / worsening problems ROS: 10 point ROS as noted above, otherwise negative Physical Exam: GEN: Alert, oriented, NAD HEENT: Normal conjunctiva, sclera anicteric CV: Regular rate and rhythm, no edema Pulm: Nonlabored respirations on room air, clear bilaterally ABD: Soft, nontender, nondistended MSK: RLE knee immobilizer in place Neuro: Normal speech, normal affect vitals reviewed Problem List: Intractable pain secondary to displaced comminuted fracture of right patella s/p Mechanical fall Hypertension Hyperlipidemia NIDDM2 History DC Intractable pain Displaced comminuted fracture of right patella s/p Mechanical fall CT R knee(12/02): comminuted fracture of the right patella. Ortho consulted - Dr. Joy trial of nonoperative management with PT/knee immobilizer activity/weightbearing as tolerated. [place] Joy will reevaluate within next 1-2 days PRN pain medication continue PT/OT ss/cm consulted for inpatient rehab. Hypertension Hyperlipidemia NIDDM2 History DC Continue home medications as appropriate VTE: SCD Code: Full Dispo: IPR - denied; pending [id number]; scheduled for tomorrow 3:30pm ss/cm consulted
[2022-12-05] MEDS: INSULIN REGULAR (HUMAN) 100 UNIT/ML SQ SCH ×4 (07:30→21:00)
[2022-12-05] MEDS: ASPIRIN EC 81 MG TAB PO SCH (09:04)
[2022-12-05] MEDS: AMLODIPINE 5 MG TAB PO SCH (09:04)
[2022-12-05] MEDS: CLOPIDOGREL 75 MG TABLET PO SCH (09:05)
[2022-12-05] MEDS: carvediloL 12.5 MG TAB PO SCH ×2 (09:05→20:40)
[2022-12-05] MEDS: HYDROCODONE/APAP 10/325 TAB PO PRN (11:34)
--- NOTE | 2022-12-05 16:28 | P.PN ---
Subjective Date of Service: 12/05/22 Chief Complaint: fall, knee pain Subjective: Improving, Working w/ PT Patient reports continued pain with the right knee. Patient still does not feel stable or safe to mobilize on her own at home. Physical Examination - Vital Signs Temperature: 97.1 F Blood Pressure: 153/80 Pulse: 67 Respirations: 16 Pulse Ox (%): 98 - Physical Exam General: Alert, In no apparent distress Musculoskeletal: Other (RLE: mild swelling over anterior knee; ttp over patella; + straight leg raise; extensor mechanism intact; mild extension lag; NVI distally) Assessment And Plan - Plan Kaylynn is an 82-year-old female with a right comminuted patella fracture -I discussed the patient at length her diagnosis as well as both operative and nonoperative treatment measures. Her extensor mechanism is intact and she is not a candidate for nonoperative treatment. She has a severely comminuted patella fracture with some displacement. I discussed the patient the risk of posttraumatic arthritis both with and without surgery and she expressed understanding. I discussed surgical treatment including open reduction internal fixation as well as partial patellectomy. I discussed the patient possible extensor lag with nonoperative management as well as weakness. The patient would like to discuss further with her family however at this point it she is leaning toward nonoperative management. She will continue with physical therapy at this time and remain in the knee immobilizer. Physician Review: Patient Assessed, Agree with Above Assessment and Plan
[2022-12-05] MEDS: ROSUVASTATIN 10 MG TAB PO SCH (20:40)
[2022-12-06] MEDS: INSULIN REGULAR (HUMAN) 100 UNIT/ML SQ SCH ×4 (07:30→20:56)
--- NOTE | 2022-12-06 09:30 | P.PN ---
Date of Service: 12/06/22 Subjective: Feeling a little better overall today no acute events overnight Knee pain improving working with PT, gait distance limited by easily fatigability per PT note yesterday IPR [id number] scheduled for this afternoon ROS: 10 point ROS as noted above, otherwise negative Physical Exam: GEN: Alert, oriented, NAD HEENT: Normal conjunctiva, sclera anicteric CV: Regular rate and rhythm, no edema Pulm: Nonlabored respirations on room air, clear bilaterally ABD: Soft, nontender, nondistended MSK: RLE knee immobilizer in place Neuro: Normal speech, normal affect vitals reviewed Problem List: Intractable pain secondary to displaced comminuted fracture of right patella s/p Mechanical fall Hypertension Hyperlipidemia NIDDM2 History [place] Intractable pain secondary to displaced comminuted fracture of right patella s/p Mechanical fall CT R knee(12/02): comminuted fracture of the right patella. Ortho consulted - Dr. Rufino Joy discussed surgical treatments options vs nonoperative management 12/05 Patient wishing to discuss further with family before decision; continue nonoperative management for now continue PT/knee immobilizer activity/weightbearing as tolerated. PRN pain medication continue PT/OT ss/cm consulted for inpatient rehab - denied [id number] scheduled for today 3:30pm Hypertension Hyperlipidemia NIDDM2 History [place] Continue home medications as appropriate VTE: SCD Code: Full Dispo: IPR - denied; pending [id number]; scheduled for today 3:30pm ss/cm consulted
[2022-12-06] MEDS: CLOPIDOGREL 75 MG TABLET PO SCH (11:53)
[2022-12-06] MEDS: HYDROCODONE/APAP 10/325 TAB PO PRN (11:54)
[2022-12-06] MEDS: carvediloL 12.5 MG TAB PO SCH ×2 (11:54→20:54)
[2022-12-06] MEDS: AMLODIPINE 5 MG TAB PO SCH (11:54)
[2022-12-06] MEDS: ASPIRIN EC 81 MG TAB PO SCH (11:54)
[2022-12-06] MEDS: ROSUVASTATIN 10 MG TAB PO SCH (20:45)
[2022-12-07] MEDS: HYDROCODONE/APAP 7.5/325 MG TAB PO PRN ×2 (00:59→21:57)
[2022-12-07 03:54] LABS: Hematocrit 35.9 % (36.0-45.0); MCV 86.5 fL (80-100); MPV 9.5 fL (7.6-11.3); Platelets 206 thou/uL (152-406); RBC Red Blood Cell Count 4.15 M/uL (3.86-4.86)
[2022-12-07 04:03] LABS: Potassium 3.8 mEq/L (3.5-5.1)
[2022-12-07] MEDS: INSULIN REGULAR (HUMAN) 100 UNIT/ML SQ SCH ×4 (07:30→21:00)
[2022-12-07] MEDS: DOCUSATE NA 100 MG CAP PO SCH ×2 (09:33→21:56)
[2022-12-07] MEDS: ASPIRIN EC 81 MG TAB PO SCH (09:33)
[2022-12-07] MEDS: carvediloL 12.5 MG TAB PO SCH ×2 (09:33→21:56)
[2022-12-07] MEDS: CLOPIDOGREL 75 MG TABLET PO SCH (09:33)
[2022-12-07] MEDS: AMLODIPINE 5 MG TAB PO SCH (09:33)
--- NOTE | 2022-12-07 11:44 | P.PN ---
Date of Service: 12/07/22 Subjective: no acute events overnight [id number] for IPR denied; appeal process started working with PT; slowly improving able to perform more ADLs yesterday with some increased independence per PT note feels constipated; no BM yet ROS: 10 point ROS as noted above, otherwise negative Physical Exam: GEN: Alert, oriented, NAD HEENT: Normal conjunctiva, sclera anicteric CV: Regular rate and rhythm, no edema Pulm: Nonlabored respirations on room air, clear bilaterally ABD: Soft, nontender, nondistended MSK: RLE knee immobilizer in place Neuro: Normal speech, normal affect vitals reviewed Problem List: Intractable pain secondary to displaced comminuted fracture of right patella s/p Mechanical fall Hypertension Hyperlipidemia NIDDM2 History [place] Constipation Intractable pain secondary to displaced comminuted fracture of right patella s/p Mechanical fall CT R knee(12/02): comminuted fracture of the right patella. Ortho consulted - Dr. Rufino Joy discussed surgical treatments options vs nonoperative management 12/05 Patient wishing to discuss further with family before decision; continue nonoperative management for now continue PT/knee immobilizer activity/weightbearing as tolerated. PRN pain medication continue PT/OT ss/cm consulted for inpatient rehab - denied [id number] denied 12/07; pending appeal Hypertension Hyperlipidemia NIDDM2 History [place] Continue home medications as appropriate Constipation HORACIO colace, PRN glycolax added 12/07 no BM yet VTE: SCD Code: Full Dispo: IPR [id number] denied 12/07; pending appeal ss/cm consulted
[2022-12-07] MEDS: POLYETHYL GLY 3350 17 GM/DOSE PO PRN (14:06)
[2022-12-07] MEDS: ROSUVASTATIN 10 MG TAB PO SCH (21:57)
[2022-12-08] MEDS: INSULIN REGULAR (HUMAN) 100 UNIT/ML SQ SCH ×4 (07:30→21:00)
[2022-12-08] MEDS: carvediloL 12.5 MG TAB PO SCH ×2 (09:26→21:11)
[2022-12-08] MEDS: AMLODIPINE 5 MG TAB PO SCH (09:26)
[2022-12-08] MEDS: ASPIRIN EC 81 MG TAB PO SCH (09:27)
[2022-12-08] MEDS: DOCUSATE NA 100 MG CAP PO SCH ×2 (09:27→21:00)
[2022-12-08] MEDS: CLOPIDOGREL 75 MG TABLET PO SCH (09:27)
--- NOTE | 2022-12-08 10:40 | P.PN ---
Date of Service: 12/08/22 Subjective: continues to work with PT; slowly improving with gait and mobility per PT note yesterday still very limited by pain; +needing breaks patient reports fall last night when taking a shower - no loss of consciousness - more of a slow drop frustrated with waiting on answers; wanting to go home pending IPR appeal ROS: 10 point ROS as noted above, otherwise negative Physical Exam: GEN: Alert, oriented, frustrated HEENT: Normal conjunctiva, sclera anicteric CV: Regular rate and rhythm, no edema Pulm: Nonlabored respirations on room air, clear bilaterally ABD: Soft, nontender, nondistended MSK: RLE knee immobilizer in place Neuro: Normal speech, normal affect vitals reviewed Problem List: Intractable pain secondary to displaced comminuted fracture of right patella s/p Mechanical fall Hypertension Hyperlipidemia NIDDM2 History [place] Constipation Intractable pain secondary to displaced comminuted fracture of right patella s/p Mechanical fall CT R knee(12/02): comminuted fracture of the right patella. Ortho consulted - Dr. Rufino Joy discussed surgical treatments options vs nonoperative management 12/05 Patient wishing to discuss further with family before decision; continue nonoperative management for now continue PT/knee immobilizer activity/weightbearing as tolerated. PRN pain medication continue PT/OT ss/cm consulted for inpatient rehab - denied [id number] denied 12/07; pending appeal Hypertension Hyperlipidemia NIDDM2 History [place] Continue home medications as appropriate Constipation HORACIO colace, PRN glycolax added 12/07 no BM yet VTE: SCD Code: Full Dispo: IPR [id number] denied 12/07; pending appeal ss/cm consulted
[2022-12-08] MEDS: ROSUVASTATIN 10 MG TAB PO SCH (21:11)
[2022-12-08] MEDS: HYDROCODONE/APAP 7.5/325 MG TAB PO PRN (23:06)
[2022-12-09] MEDS: INSULIN REGULAR (HUMAN) 100 UNIT/ML SQ SCH ×4 (07:30→20:44)
[2022-12-09] MEDS: carvediloL 12.5 MG TAB PO SCH ×2 (08:51→20:43)
[2022-12-09] MEDS: AMLODIPINE 5 MG TAB PO SCH (08:51)
[2022-12-09] MEDS: DOCUSATE NA 100 MG CAP PO SCH ×2 (08:52→20:43)
[2022-12-09] MEDS: ASPIRIN EC 81 MG TAB PO SCH (08:52)
[2022-12-09] MEDS: CLOPIDOGREL 75 MG TABLET PO SCH (08:52)
--- NOTE | 2022-12-09 10:32 | P.PN ---
Date of Service: 12/09/22 Subjective: reports new left flank pain; tenderness on light palpation; "feels like kidney pain" denies urinary symptoms; voiding without issues able to lift right leg up while in bed today knee/leg pain slowly improving afebrile ROS: 10 point ROS as noted above, otherwise negative Physical Exam: GEN: Alert, oriented, NAD HEENT: Normal conjunctiva, sclera anicteric CV: Regular rate and rhythm, no edema Pulm: Nonlabored respirations on room air, clear bilaterally ABD: Soft, Left flank tender on light palpation, nondistended; no suprapubic tenderness MSK: RLE knee immobilizer in place Neuro: Normal speech, normal affect vitals reviewed Problem List: Intractable pain secondary to displaced comminuted fracture of right patella s/p Mechanical fall Left flank Pain, new Hypertension Hyperlipidemia NIDDM2 History [place] Constipation Intractable pain secondary to displaced comminuted fracture of right patella s/p Mechanical fall CT R knee(12/02): comminuted fracture of the right patella. Ortho consulted - Dr. Rufino Joy discussed surgical treatments options vs nonoperative management 12/05 continue nonoperative management continue PT/knee immobilizer activity/weightbearing as tolerated. pain improving; ROM at hip improved PRN pain medication continue PT/OT ss/cm consulted for inpatient rehab - denied [id number] denied 12/07; pending appeal Left flank Pain, new new left flank pain with tenderness on light palpation of muscles possible spasm, not consistent with denies urinary symptoms; voiding without issues UA, urine cx ordered 12/09 no fever, no leukocytosis Hypertension Hyperlipidemia NIDDM2 History [place] Continue home medications as appropriate Constipation HORACIO colace, PRN glycolax added 12/07 no BM yet VTE: SCD Code: Full Dispo: IPR [id number] denied 12/07; pending appeal ss/cm consulted
[2022-12-09] MEDS: CYCLOBENZAPRINE 10 MG TAB PO PRN ×2 (10:48→20:42)
[2022-12-09 12:20] LABS: Absolute Lymphocytes (CBC) 1.4 K/uL (0.7-4.9); Hematocrit 36.4 % (36.0-45.0); Lymphocytes % 15.7 % (15.3-44.8); MCV 87.1 fL (80-100); Platelets 236 thou/uL (152-406); RBC Red Blood Cell Count 4.18 M/uL (3.86-4.86)
[2022-12-09 12:33] LABS: Potassium 3.8 mEq/L (3.5-5.1)
[2022-12-09] MEDS ORDERED: POTASSIUM 25 MEQ EFFERV TAB PO ONE (13:00)
[2022-12-09 13:01] LABS: Specific Gravity 1.012 (1.005-1.030); Urine Bacteria >50 /HPF (<20); Urine Bilirubin NEGATIVE (Negative); Urine Blood 1+ (Negative); Urine Clarity Extremely Turbid (Clear); Urine Color Light-Orange (Yellow); Urine Glucose NEGATIVE (Negative); Urine Mucus Slight /HPF (None Seen); Urine Protein 1+ (Negative); Urine Urobilinogen Normal (Normal); Urine WBC Clump Many /HPF (None Seen); Urine pH 7.5 (5.0-7.0)
[2022-12-09] MEDS: CEFTRIAXONE 1,000 MG in NA CHLORIDE 0.9% 50 ML IVPB SCH (14:43)
--- NOTE | 2022-12-09 20:26 | RAD REPORT ---
EXAM DESCRIPTION: US - Renal Ultrasound-Complete - 12/09/2022 8:04 pm CLINICAL HISTORY: Left flank pain, r/o obstruction / pyelo COMPARISON: Abdomen Pelvis Wo Contrast dated 03/12/2020 FINDINGS: The right kidney measures 8.4 cm. Right upper pole renal cyst. Moderate right-sided hydron ephrosis. The left kidney measures 7 cm. No hydronephrosis, focal mass or perinephric fluid. Suboptimal visuali zation due to overlying bowel gas. The urinary bladder is incompletely distended without gross abnormality seen. IMPRESSION: Moderate right-sided hydronephrosis of uncertain etiology. No left-sided hydronephrosis. Could consider CT to further evaluate.
[2022-12-09] MEDS: ROSUVASTATIN 10 MG TAB PO SCH (20:43)
--- NOTE | 2022-12-10 07:11 | P.PN ---
Date of Service: 12/10/22 Subjective: back/flank pain improving; minimal cloudy urine anival in color denies any new / worsening problems afebrile ROS: 10 point ROS as noted above, otherwise negative Physical Exam: GEN: Alert, oriented, NAD HEENT: Normal conjunctiva, sclera anicteric CV: Regular rate and rhythm, no edema Pulm: Nonlabored respirations on room air, clear bilaterally ABD: Soft, mild left flank tenderness, nondistended; no suprapubic tenderness MSK: RLE knee immobilizer in place Neuro: Normal speech, normal affect vitals reviewed Problem List: Intractable pain secondary to displaced comminuted fracture of right patella s/p Mechanical fall Left flank Pain, new Moderate right hydronephrosis, unknown etiology Suspected UTI Hypertension Hyperlipidemia NIDDM2 History [place] Constipation Intractable pain secondary to displaced comminuted fracture of right patella s/p Mechanical fall CT R knee(12/02): comminuted fracture of the right patella. Ortho consulted - Dr. Rufino Joy discussed surgical treatments options vs nonoperative management 12/05 continue nonoperative management continue PT/knee immobilizer activity/weightbearing as tolerated. pain improving; ROM at hip improved PRN pain medication continue PT/OT ss/cm consulted for inpatient rehab - denied [id number] denied 12/07; pending appeal Left flank Pain, new Moderate right hydronephrosis, unknown etiology Suspected UTI new left flank pain with tenderness on light palpation of muscles denies urinary symptoms; voiding without issues renal u/s(12/09): Moderate right-sided hydronephrosis UA (12/09): +LE, +RBC, +WBC, >50 Bacteria urine cx(12/09): pending no fever, no leukocytosis continue empiric rocephin (12/09-) unexpected R sided hydronephrosis. patient reports pain on left flank CT abdomen (12/10): ordered eval etiology of R hydro; stone / stricture, etc 12/10 reports past hospitalization ~20 years ago; story consistent with / sounds like passed stone had workup done including CT/MRI; possible cystoscopy flank/back pain improving; mild Hypertension Hyperlipidemia NIDDM2 History [place] Continue home medications as appropriate Constipation HORACIO colace, PRN glycolax added 12/07 no BM yet VTE: SCD Code: Full Dispo: IPR [id number] denied 12/07; pending appeal ss/cm consulted
[2022-12-10] MEDS: INSULIN REGULAR (HUMAN) 100 UNIT/ML SQ SCH ×4 (07:30→20:23)
[2022-12-10 07:38] LABS: Absolute Lymphocytes (CBC) 1.8 K/uL (0.7-4.9); Hematocrit 33.8 % (36.0-45.0); Lymphocytes % 21.6 % (15.3-44.8); MCV 86.6 fL (80-100); MPV 8.9 fL (7.6-11.3); Platelets 259 thou/uL (152-406); RBC Red Blood Cell Count 3.91 M/uL (3.86-4.86)
[2022-12-10 07:47] LABS: Magnesium 2.3 mg/dL (1.6-2.4); Potassium 3.5 mEq/L (3.5-5.1)
[2022-12-10] MEDS: CEFTRIAXONE 1,000 MG in NA CHLORIDE 0.9% 50 ML IVPB SCH (07:49)
[2022-12-10] MEDS: carvediloL 12.5 MG TAB PO SCH ×2 (07:50→20:21)
[2022-12-10] MEDS: ASPIRIN EC 81 MG TAB PO SCH (07:50)
[2022-12-10] MEDS: DOCUSATE NA 100 MG CAP PO SCH ×2 (07:50→20:21)
[2022-12-10] MEDS: CLOPIDOGREL 75 MG TABLET PO SCH (07:50)
[2022-12-10] MEDS: AMLODIPINE 5 MG TAB PO SCH (07:51)
--- NOTE | 2022-12-10 12:24 | RAD REPORT ---
EXAM DESCRIPTION: CT - Abdomen Pelvis W/Wo Contrast - 12/10/2022 11:36 am CLINICAL HISTORY: Abdominal pain. Right hydronephrosis COMPARISON: December 09, 2022 ultrasound TECHNIQUE: Computed axial tomography of the abdomen and pelvis was obtained. Unenhanced and enhanced images were taken. 100 cc Isovue [address] was [address] scans are performed using dose optimization technique as appropriate and may include automated exposure control or mA/KV adjustment according to patient size. FINDINGS: Moderate to marked right hydronephrosis. Delay concentration and excretion of contrast rig ht kidney. Right ureter dilated. 7 millimeter calculus mid to distal right ureter Liver, spleen, pancreas, adrenals left kidney are unremarkable Hysterectomy. No adnexal mass. Spondylosis lumbar spine resulting in spinal stenosis. Post surgical changes involve lumbar spine IMPRESSION: 7 millimeter calculus mid to distal right ureter resulting in moderate to marked right h ydronephrosis
[2022-12-10] MEDS: ROSUVASTATIN 10 MG TAB PO SCH (20:21)
[2022-12-10] MEDS: CYCLOBENZAPRINE 10 MG TAB PO PRN (20:22)
[2022-12-10] MEDS: POLYETHYL GLY 3350 17 GM/DOSE PO PRN (20:23)
[2022-12-11] MEDS: INSULIN REGULAR (HUMAN) 100 UNIT/ML SQ SCH ×4 (07:30→21:00)
[2022-12-11 07:48] LABS: Absolute Lymphocytes (CBC) 1.5 K/uL (0.7-4.9); Hematocrit 35.1 % (36.0-45.0); Lymphocytes % 20.3 % (15.3-44.8); MCV 87.3 fL (80-100); MPV 9.1 fL (7.6-11.3); Platelets 283 thou/uL (152-406); RBC Red Blood Cell Count 4.03 M/uL (3.86-4.86)
[2022-12-11 07:50] LABS: Protime INR 1.11
[2022-12-11 08:09] LABS: Magnesium 2.3 mg/dL (1.6-2.4); Potassium 3.9 mEq/L (3.5-5.1)
--- NOTE | 2022-12-11 08:19 | P.PN ---
Date of Service: 12/11/22 Subjective: Feeling better today Knee/back pain improving; hasn't been needing as frequent pain medication no new / worsening problems afebrile ROS: 10 point ROS as noted above, otherwise negative Physical Exam: GEN: Alert, oriented, NAD HEENT: Normal conjunctiva, sclera anicteric CV: Regular rate and rhythm, no edema Pulm: Nonlabored respirations on room air, clear bilaterally ABD: Soft, minimal left flank tenderness, nondistended; no suprapubic tenderness MSK: RLE knee immobilizer in place Neuro: Normal speech, normal affect vitals reviewed Problem List: Intractable pain secondary to displaced comminuted fracture of right patella s/p Mechanical fall Left flank Pain, new Moderate right hydronephrosis secondary to 7mm R renal calculus Suspected UTI Hypertension Hyperlipidemia NIDDM2 History [place] Constipation Intractable pain secondary to displaced comminuted fracture of right patella s/p Mechanical fall CT R knee(12/02): comminuted fracture of the right patella. Ortho consulted - Dr. Rufino Joy discussed surgical treatments options vs nonoperative management 12/05 continue nonoperative management continue PT/knee immobilizer activity/weightbearing as tolerated. pain improving; ROM at hip improved PRN pain medication continue PT/OT Left flank Pain, new Moderate right hydronephrosis secondary to 7mm R renal calculus Suspected UTI new left flank pain with tenderness on light palpation of muscles denies urinary symptoms; voiding without issues renal u/s(12/09): Moderate right-sided hydronephrosis UA (12/09): +LE, +RBC, +WBC, >50 Bacteria urine cx(12/09): pending no fever, no leukocytosis continue empiric rocephin (12/09-) unexpected R sided hydronephrosis. patient reports pain on left flank 12/10 reports past hospitalization ~20 years ago; story consistent with / sounds like passed stone had workup done including CT/MRI; possible cystoscopy in past CT abdomen (12/10): 7 mm calculus mid to distal right ureter resulting in moderate to marked right hydronephrosis strain urine for stone if possible Urology consulted 12/11 Hypertension Hyperlipidemia NIDDM2 History [place] Continue home medications as appropriate Constipation HORACIO colace, PRN glycolax added 12/07 no BM yet VTE: SCD Code: Full Dispo: SNF vs home IPR appeal denied; pending SNF auth ss/cm consulted
[2022-12-11] MEDS: ASPIRIN EC 81 MG TAB PO SCH (09:00)
[2022-12-11] MEDS: DOCUSATE NA 100 MG CAP PO SCH ×2 (09:00→20:58)
[2022-12-11] MEDS: AMLODIPINE 5 MG TAB PO SCH (09:10)
[2022-12-11] MEDS: CLOPIDOGREL 75 MG TABLET PO SCH (09:10)
[2022-12-11] MEDS: carvediloL 12.5 MG TAB PO SCH ×2 (09:10→20:57)
[2022-12-11] MEDS: CEFTRIAXONE 1,000 MG in NA CHLORIDE 0.9% 50 ML IVPB SCH (09:11)
[2022-12-11] MEDS ORDERED: NA CHLORIDE 0.9% 100 ML ONE (09:30)
[2022-12-11] MEDS: CYCLOBENZAPRINE 10 MG TAB PO PRN (11:46)
[2022-12-11] MEDS: HYDROCODONE/APAP 7.5/325 MG TAB PO PRN ×2 (14:03→21:05)
--- NOTE | 2022-12-11 14:48 | RAD REPORT ---
EXAM DESCRIPTION: RAD - Knee Right 2 View - 12/11/2022 2:21 pm CLINICAL HISTORY: pain COMPARISON: Knee Right 3 View dated 11/30/2022; Knee Right 3 View dated 01/02/2017 TECHNIQUE: Right knee, 3 views. FINDINGS: Comminuted, displaced patellar fractures are stable in alignment. Sequelae of proximal tib ial hardware fusion, unchanged. .Moderate joint effusion seen. No joint space narrowing. Improving pr epatellar soft tissue swelling. IMPRESSION: No change in alignment of comminuted displaced patellar fractures. Moderate joint effusion.
[2022-12-11] MEDS: ROSUVASTATIN 10 MG TAB PO SCH (20:58)
[2022-12-11] MEDS: POLYETHYL GLY 3350 17 GM/DOSE PO PRN (21:02)
[2022-12-12] MEDS: INSULIN REGULAR (HUMAN) 100 UNIT/ML SQ SCH ×4 (07:30→21:00)
[2022-12-12 07:51] LABS: Absolute Lymphocytes (CBC) 1.9 K/uL (0.7-4.9); Hematocrit 35.3 % (36.0-45.0); Lymphocytes % 28.9 % (15.3-44.8); MCV 87.5 fL (80-100); MPV 8.9 fL (7.6-11.3); Platelets 285 thou/uL (152-406); RBC Red Blood Cell Count 4.03 M/uL (3.86-4.86)
[2022-12-12 08:04] LABS: Magnesium 2.4 mg/dL (1.6-2.4); Potassium 3.5 mEq/L (3.5-5.1)
[2022-12-12] MEDS: ASPIRIN EC 81 MG TAB PO SCH (09:01)
[2022-12-12] MEDS: DOCUSATE NA 100 MG CAP PO SCH ×2 (09:01→21:48)
[2022-12-12] MEDS: CEFTRIAXONE 1,000 MG in NA CHLORIDE 0.9% 50 ML IVPB SCH (09:01)
[2022-12-12] MEDS: CLOPIDOGREL 75 MG TABLET PO SCH (09:02)
[2022-12-12] MEDS: carvediloL 12.5 MG TAB PO SCH ×2 (09:02→21:48)
--- NOTE | 2022-12-12 13:49 | P.PN ---
Subjective Date of Service: 12/12/22 Chief Complaint: fall, knee pain Patient ambulated about 20 feet with PT today. She states her pain is better controlled. She is still needing a lot of assistance with transfer. Physical Examination - Vital Signs Temperature: 97.5 F Blood Pressure: 136/86 Pulse: 64 Respirations: 16 Pulse Ox (%): 95 Assessment And Plan - Plan Physical Exam General: Alert, NAD. Respiratory: Clear to auscultation bilaterally, Normal air movement Cardiovascular: No edema, Normal pulses, Regular rate/rhythm Gastrointestinal: Normal bowel sounds, Soft and benign Musculoskeletal: RLE knee immobilizer. Integumentary: No rashes, No breakdown Neurological: Normal speech, no focal motor deficit. vitals reviewed Problem List: Intractable pain secondary to displaced comminuted fracture of right patella s/p Mechanical fall Left flank Pain, new Moderate right hydronephrosis secondary to 7mm R renal calculus Suspected UTI Hypertension Hyperlipidemia NIDDM2 History [place] Constipation Intractable pain secondary to displaced comminuted fracture of right patella s/p Mechanical fall CT R knee(12/02): comminuted fracture of the right patella. Ortho consulted - Dr. Rufino Joy discussed surgical treatments options vs nonoperative management 12/05 Nonoperative management per Ortho. continue PT/knee immobilizer activity/weightbearing as tolerated. pain improving; ROM at hip improved continue PT/OT Left flank Pain, new Moderate to marked right hydronephrosis secondary to 7mm R renal calculus UTI No urinary symptoms; voiding without issues renal u/s(12/09): Moderate right-sided hydronephrosis UA (12/09): +LE, +RBC, +WBC, >50 Bacteria urine cx(12/09): Mixed growth no fever, no leukocytosis continue empiric rocephin (12/09-) CT abdomen (12/10): 7 mm calculus mid to distal right ureter resulting in moderate to marked right hydronephrosis strain urine for stone if possible Urology consulted 12/11, patient seen by Dr. Levine and planned for urologic procedure today. Hypertension Hyperlipidemia NIDDM2 History [place] Continue home medications as appropriate Constipation Colace, PRN glycolax added 12/07 VTE: SCD Code: Full IPR appeal denied; pending SNF auth ss/cm following. diet cardiac Full Code DVT SCD
[2022-12-12] MEDS ORDERED: NA CHLORIDE 0.9% 1,000 ML ONE (15:38)
--- NOTE | 2022-12-12 15:49 | P.CNS ---
Date of Consult: 12/12/22 Reason for Consult: right hydronephrosis Requesting Physician: Gordo Black Chief Complaint: fall, knee pain History of Present Illness: 82-year-old woman with hypertension, hyperlipidemia, DM 2, history of AMI post PCI with 2 stents placed around 2018 on aspirin and Plavix, and h/o TIA presents after having been admitted via the emergency room with a fall resulting in displaced comminuted fracture of her right patella. Since her admission on 11/30/2022, she has been awaiting rehabilitation disposition, but the last , she developed left flank pain. This prompted a CT scan which revealed suspicion for right-sided hydronephrosis as below secondary to a ureteral calculus according to the radiologist's evaluation. The patient denies any fever or chills, and she also denies any nausea or vomiting. In fact, the pain is not at all on the right side and has been in the left flank. Because of her significant medical comorbidities, I recommended intervention with stent placement to prevent decompensation and AMI or CVA. Past medical history: As above Past surgical history: Hysterectomy, benign brain tumor removed, left mastectomy, back surgeries, lower extremity surgeries Family history: Denies urologic malignancy Allergies codeine and sulfa Examination: Patient well-appearing and in no acute distress Alert, awake, oriented x3 No dyspnea or sign of respiratory distress No cervical/supraclavicular adenopathy or thyromegaly Abdomen soft, nontender, nondistended Lying in hospital bed with right knee immobilizer in place 12/11/2022 WBC 7.3, hemoglobin 11.9, platelets 283, INR 1.11, creatinine 0.96 with EGFR 60 which is her baseline I reviewed the images of the CT scan performed 12/10/2022 with my interpretation as follows: Right pelviectasis with tortuous ureter and ureteral nephrosis dilated into the distal ureter. No renal calculi noted bilaterally. 12/10/2022 CT abdomen and pelvis with and without contrast radiologist impression: 7 mm calculus mid to distal right ureter resulting in moderate to marked right hydronephrosis. Delayed concentration and excretion of contrast right kidney. Right ureter dilated. 7 mm calculus mid to distal right ureter. Assessment and recommendation: 82-year-old woman with hypertension, hyperlipidemia, DM 2, history of AMI post PCI with 2 stents placed around 2018 on aspirin and Plavix, and h/o TIA admitted with displaced comminuted fracture of the right patella now with right hydroureteronephrosis suspected secondary to a 7 mm mid to distal right ureteral calculus but in the setting of left flank pain. -I counseled the patient again that given her history of AMI and TIA, to prevent potential complication of that relative to the pain associated with potential stone passage, I recommended operative intervention with cystoscopy, bilateral retrogrades, and right-sided possible left-sided ureteral stents placed. I explained the role for the left retrograde to evaluate for obstruction to explain the flank pain, while no sign of obstruction on CT scan was noted. -Risks of the procedure were discussed to include infection and urethral stricture. Side effects of irritative LUTS and stent pain were also discussed. -Consent was obtained accordingly, and patient was arranged to be clear liquids since 8:00 this morning and n.p.o. since 10 AM. Allergies codeine [Codeine] Allergy (Verified 11/30/22 23:03) Unknown Sulfa (Sulfonamide Antibiotics) Allergy (Verified 11/30/22 23:03) Unknown Home medications list reviewed: Yes Home Medications: Metformin HCl [Glucophage*] 500 mg PO DAILY 05/22/15 Aspirin [Aspirin EC 81 MG] 81 mg PO DAILY #30 tablet. 12/26/15 Rosuvastatin [Crestor*] 40 mg PO BEDTIME 03/22/16 Clopidogrel Bisulfate [Plavix*] 75 mg PO DAILY 03/13/20 Carvedilol [Coreg] 12.5 mg PO BID 11/30/22 - Past Medical/Surgical History Diabetic: Yes -: History of TIA -: History of breast cancer -: Hypertension -: Diabetes mellitus type 2 -: Hyperlipidemia -: Coronary artery disease, history of [place] -: Benign brain tumor removed -: Hysterectomy -: Benign brain tumor removed -: Left lower extremity repair, L leg-gold and pins -: Left breast mastectomy -: Back surgery -: Bunion surgery Psychosocial/ Personal History: She is a , has 5 children. She lives by herself - Family History Father Medical History: Stroke, Cancer Sister Medical History: Other (see notes) Notes: special needs; - Social History Smoking Status: Never smoker Alcohol use: No CD- Drugs: No Caffeine use: Yes Place of Residence: Home Physical Examination Temp Pulse Resp BP Pulse Ox 97.5 F 64 16 136/86 95 12/12/22 13:49 12/12/22 13:49 12/12/22 13:49 12/12/22 13:49 12/12/22 13:49 Conclusions/Impression: See assessment and plan in HPI Critical Care: No Time Spent Managing Pts care (In Minutes): 45
[2022-12-12] MEDS ORDERED: LIDOCAINE 1% MPF 5 ML VIAL ONE (17:05)
[2022-12-12] MEDS ORDERED: MIDAZOLAM HCL 2 MG/2 ML INJ ONE (17:05)
[2022-12-12] MEDS ORDERED: FENTANYL CITR 100 MCG/2 ML ONE (17:05)
[2022-12-12] MEDS ORDERED: ONDANSETRON 4 MG/2 ML VIAL ONE (17:05)
[2022-12-12] MEDS ORDERED: propofoL 200 MG/20 ML VIAL IV ONE (17:05)
[2022-12-12] MEDS ORDERED: Phenylephrine HCl 10 MG/ML 1 ML VIAL ONE (17:46)
--- NOTE | 2022-12-12 18:16 | P.OP ---
Date of Service: 12/12/22 Preoperative diagnoses: Right hydroureteronephrosis Right ureterolithiasis Left flank pain p right traumatic patellar fracture with knee requiring immobilization Postoperative diagnoses: Right hydroureteronephrosis Right ureterolithiasis Left flank pain p right traumatic patellar fracture with knee requiring immobilization Principal procedures: Cystoscopy Bladder irrigation Bilateral retrograde pyelographies Right 6 x 24 Haitian ureteral stent placement Additional efforts made at positioning with patient awake of the right lower extremity due to knee requiring immobilization Findings: 1. 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 Significant tortuosity of the right ureter with massive pelvocaliectasis associated with a transition point of obstruction in the mid distal ureter at the pelvic inlet, distal one third of the sacrum. 3. Normal right collecting system without pelvic caliectasis or ureteronephrosis 4. Cystocele grade 1-2 Indication for procedure: 82-year-old woman with hypertension, hyperlipidemia, DM 2, history of AMI post PCI with 2 stents placed around 2018 on aspirin and Plavix, and h/o TIA admitted with displaced comminuted fracture of the right patella now with right hydroureteronephrosis suspected secondary to a 7 mm mid to distal right ureteral calculus but in the setting of left flank pain. Procedure note: The patient was consented in the preoperative holding area before being transferred to the operative suite where general anesthesia was induced. She was given ceftriaxone as an inpatient. Pneumoboots were provided for DVT prophylaxis. Prior to the initiation of general anesthesia, while she was awake and able to assist and notify of the presence of any pain or discomfort, I a ssisted the patient to place her left foot in a yellowfin stirrup with out any flexion in the knee. Additional padding was provided in order to keep the knee from hyperextension. Her left lower extremity was placed in traditional fashion with the knee flexed and its yellowfin stirrups. Her genitalia was prepped with Hibiclens, and she was draped in standard fashion. The case was begun using a 22 Haitian rigid cystoscope to traverse the urethra and into the bladder with ease. The bladder was then decompressed of very cloudy appearing urine. I then had to irrigate the bladder a few different times in order to remove sufficient cloudiness and heme such that the mucosa was visualizable. I then surveyed the bladder in its entirety, and I noted the presence of significant cystitis with cystitis cystica at glandularis noted extensively throughout the trigone extending into the posterior wall of the bladder. Of note, the patient also had a grade 1-2 cystocele that resulted in incomplete bladder emptying and may have contributed to her development of a urinary tract infection. I then cannulated the right ureteral orifice using a sensor wire and the tip of a 5 Haitian ureteral access catheter to perform a retrograde pyelography study. Right retrograde pyelography: Using a 70: 30 mixture of Omnipaque and saline, contrast was injected via the lumen of the 5 Haitian ureteral access catheter and did propagate into the distal ureter where a point of obstruction was identified with a ureteral transition from narrow to massively dilated just above the pelvic inlet at about the bottom third of the sacral junction with the iliac bone. As a result, contrast would only fill the middle third of the ureter without definitively entering the renal pelvis and calyces. So I had to advance the 5 Haitian ureteral access catheter up to the point of obstruction in the distal one third of the ureter and again inject contrast. This time, contrast did emanate into the proximal ureter demonstrating significant tortuosity before entering what was potentially the renal pelvis and lower pole calyx versus additional ureteral tortuosity. As a result, I injected an additional bolus of contrast until the mid and upper pole calyces did not delineate, confirming the pelvicalyceal system and target for stent placement. I then placed a sensor wire via the 5 Haitian ureteral access catheter and navigated it into the proximal ureter. Additional effort was required to get the wire all the way into the renal pelvis and calyces because of the tortuosity in the proximal ureter; so I advanced the 5 Haitian ureteral access catheter over the wire into the proximal ureter, and I was then able to navigate the wire confidently into the renal pelvis and lower pole calyces. I then remove the 5 Haitian ureteral access catheter leaving the wire in place and noted significant eflux of hematuria coming from the right collecting system. I then passed a 6 Haitian by 24 cm double-J ureteral stent over the wire and coiled within the renal pelvis as observed fluoroscopically. An additional coil was formed and confirmed cystoscopically within the bladder. I then turned my attention to the patient's left ureteral orifice which I also cannulated using the tip of the 5 Haitian ureteral access catheter. Left retrograde pyelography: Using a 70: 30 mixture of Omnipaque and saline, contrast was injected via the lumen of the 5 Haitian ureteral access catheter and did propagate up the distal into the mid and proximal ureter before entering a bifid renal pelvis with sharp calyces and without significant pelvocaliectasis. No filling defects were noted within the renal pelvis, calyces, or the ureter. As a result, with no sign of obstruction on the left side, no stent was placed. I then decompressed her bladder of fluid and urine, elevating the cystocele vaginally in order to ensure complete decompression. She was then carefully taken out of her modified lithotomy position, with care taken to avoid bending the right knee at all, and once she was awakened from general anesthesia, for persons were used to assist transferring her from the operative table to her hospital bed, with 1 person holding each lower extremity to avoid any trauma or traction or movement of the right knee joint. She was then transferred to the recovery room in good condition. Complications: None Discharge disposition: She will require follow-up as an outpatient in the urology clinic to discuss definitive management of the presumptive obstructing calculus causing the severe right-sided hydroureteronephrosis. This will have to be done once she has had her orthopedic knee issues on the right managed and has had sufficient time for recovery, but must take place within 6 months maximum, ideally. Recommend also awaiting results of urine culture taken preoperatively before ceftriaxone started to see if any adjustments in antimicrobial therapy required. An assessment of any potential voiding dysfunction and incomplete bladder emptying contributing to her UTI will also be made as an outpatient. Findings and Operative Technique
[2022-12-12] MEDS ORDERED: BISACODYL 10 MG RECTAL SUPP PR ONE (18:23)
--- NOTE | 2022-12-12 18:25 | RAD REPORT ---
EXAM DESCRIPTION: RAD - Urethrocystogrphy Retrograde - 12/12/2022 5:50 pm CLINICAL HISTORY: STENT W RETRO COMPARISON: None available. FINDINGS: Fifteen Images were sent to PACS, documenting hardware positions during bilateral retrogra de ureteroscopy , and right stent placement. No radiologist was available for the procedure, nor will any image interpretation he provided. Please refer to the procedural report for additional details. Fluoroscopy time: 0.28 Minutes. IMPRESSION: Documentation of fluoroscopy utilization as above.
[2022-12-12] MEDS ORDERED: MAGNESIUM CITRATE 300 ML BOT PO SCH (19:00)
[2022-12-12] MEDS: ROSUVASTATIN 10 MG TAB PO SCH (21:48)
[2022-12-13] MEDS: INSULIN REGULAR (HUMAN) 100 UNIT/ML SQ SCH ×2 (07:30→11:30)
[2022-12-13] MEDS: CEFTRIAXONE 1,000 MG in NA CHLORIDE 0.9% 50 ML IVPB SCH ×2 (09:00→09:28)
[2022-12-13] MEDS: DOCUSATE NA 100 MG CAP PO SCH (09:28)
[2022-12-13] MEDS: ASPIRIN EC 81 MG TAB PO SCH (09:28)
[2022-12-13] MEDS: AMLODIPINE 5 MG TAB PO SCH (09:29)
[2022-12-13] MEDS: CLOPIDOGREL 75 MG TABLET PO SCH (09:29)
[2022-12-13] MEDS: carvediloL 12.5 MG TAB PO SCH (09:29)
[2022-12-13] MEDS ORDERED: FLEET ENEMA ADULT PR ONE (11:15)
[2022-12-13 11:30] VITALS: O2SAT 96
[2022-12-13 13:45] VITALS: BP 126/70; TEMP 97.2
--- NOTE | 2022-12-13 15:55 | P.DS ---
Admission Date: 12/02/22 Discharge Date: 12/13/22 Disposition: [facility]HOME HEALTH CARE Discharge Condition: FAIR Reason for Admission: fall, knee pain Brief History of Present Illness: 82-year-old -Dominican female with a past medical history of hypertension, hyperlipidemia, NC, presented to the emergency room with pain swelling to the right lower extremity. She reported mechanical fall sustained at the grocery store. sustained Displaced comminuted fracture of right patella. She was placed in immobilizer in the emergency room. She reports her right knee pain worse with ambulation, movement, she reports intractable pain 10 out of 10 and could not ambulate. She reported she lives alone unable to care for herself at home. She reported prior right knee surgery in 2016. Patient was admitted for further management. Hospital Course: Diagnosis Intractable pain secondary to displaced comminuted fracture of right patella s/p Mechanical fall Moderate right hydronephrosis secondary to 7mm R renal calculus UTI Hypertension Hyperlipidemia NIDDM2 History NC Constipation Intractable pain secondary to displaced comminuted fracture of right patella s/p Mechanical fall CT R knee(12/02): comminuted fracture of the right patella. Ortho consulted - Dr. Rufino Joy discussed surgical treatments options vs nonoperative management 12/05 Nonoperative management per Ortho. Knee was placed in an immobilizer. activity/weightbearing as tolerated. pain improving and functional status improved with PT. Patient is now able to ambulate with a walker but slow pace. She was denied inpatient rehab and wanted a single room at [facility] who could not be provided. Patient opted for home with home health. She is clinically stable for discharge. Left flank Pain, new Moderate to marked right hydronephrosis secondary to 7mm R renal calculus UTI No urinary symptoms; she was voiding without issues renal u/s(12/09): Moderate right-sided hydronephrosis UA (12/09): +LE, +RBC, +WBC, >50 Bacteria urine cx(12/09): Mixed growth no fever, no leukocytosis CT abdomen (12/10): 7 mm calculus mid to distal right ureter resulting in moderate to marked right hydronephrosis Patient treated briefly with IV Rocephin She was evaluated by urology Dr. Levine placed a ureteral stent. Left flank pain resolved. Patient is deemed stable for discharge. She is discharged with oral Cipro to complete treatment for UTI. Hypertension Hyperlipidemia NIDDM2 History NC Continued home medications as appropriate Constipation Managed with colace, prn miralax and magnesium citrate. Patient had good bm. Vital Signs/Physical Exam: Temp Pulse Resp BP Pulse Ox 97.2 F 74 14 126/70 95 12/13/22 12:00 12/13/22 12:00 12/13/22 12:00 12/13/22 12:00 12/13/22 12:00 General: Alert, In no apparent distress, Oriented x3 HEENT: Mucous membr. moist/pink Neck: Supple, JVD not distended Respiratory: Clear to auscultation bilaterally, Normal air movement Cardiovascular: No edema, Regular rate/rhythm, Normal S1 S2 Capillary refill: <2 Seconds Gastrointestinal: Normal bowel sounds, Soft and benign, Non-distended Musculoskeletal: No swelling Integumentary: No rashes, No cyanosis Neurological: Normal strength at 5/5 x4 extr Laboratory Data at Discharge: WBC 6.70 thou/uL (4.3-10.9) 12/12/22 07:11 Hgb 11.8 g/dL (12.0-15.0) L 12/12/22 07:11 Hct 35.3 % (36.0-45.0) L 12/12/22 07:11 Plt Count 285 thou/uL (152-406) 12/12/22 07:11 PT 12.2 SECONDS (9.5-12.5) 12/11/22 07:30 INR 1.11 12/11/22 07:30 Sodium 140 mEq/L (136-145) 12/12/22 07:11 Potassium 3.5 mEq/L (3.5-5.1) 12/12/22 07:11 BUN 21 mg/dL (7-18) H 12/12/22 07:11 Creatinine 0.96 mg/dL (0.55-1.02) 12/12/22 07:11 Glucose 123 mg/dL (74-106) H 12/12/22 07:11 Phosphorus 3.4 mg/dL (2.5-4.9) 12/01/22 15:05 Magnesium 2.4 mg/dL (1.6-2.4) 12/12/22 07:11 Total Bilirubin 0.4 mg/dL (0.2-1.0) 12/02/22 05:50 AST 16 U/L (15-37) 12/02/22 05:50 ALT 16 U/L (13-56) 12/02/22 05:50 Alkaline Phosphatase 81 U/L (45-117) 12/02/22 05:50 Home Medications: Metformin HCl [Glucophage*] 500 mg PO DAILY 05/22/15 Aspirin [Aspirin EC 81 MG] 81 mg PO DAILY #30 tablet. 12/26/15 Rosuvastatin [Crestor*] 40 mg PO BEDTIME 03/22/16 Clopidogrel Bisulfate [Plavix*] 75 mg PO DAILY 03/13/20 Carvedilol [Coreg] 12.5 mg PO BID 11/30/22 Amlodipine [Norvasc*] 5 mg PO DAILY #30 tab 12/13/22 Ciprofloxacin HCl [Cipro] 500 mg PO BID #14 tab 12/13/22 Polyethyl Gly 3350 [Glycolax*] 17 gm PO DAILY PRN #30 udbot 12/13/22 Senosides [Senokot] 2 tab PO BID #120 tab 12/13/22 New Medications: Ciprofloxacin HCl [Cipro] 500 mg PO BID #14 tab Polyethyl Gly 3350 [Glycolax*] 17 gm PO DAILY PRN #30 udbot PRN Reason: Constipation Amlodipine [Norvasc*] 5 mg PO DAILY #30 tab Senosides [Senokot] 2 tab PO BID #120 tab Diet: AHA Activity: Fall precautions Followup: NONE,NONE [Primary Care Provider] - 1-2 Weeks Brendan Levine [ACTIVE - CAN ADMIT] - (Within 1 to 2 months.) Time spent managing pt's care (in minutes): 38
== END 2022-12-13 17:53 | disposition home health service (06) | DRG 988 ==
LOC: ER 15:53 → ERHOLD 19:34 → 2ND 20:51 → OBSVTOIN 12-02 17:18
PROVIDERS: ADMIT Internal Medicine; ATTEND Internal Medicine
PROC: 30233N1 Transfusion of Nonautologous Red Blood Cells into Peripheral Vein, Percutaneous Approach (ICD-10-PCS; 2022-11-30)
PROC: BT141ZZ Fluoroscopy of Kidneys, Ureters and Bladder using Low Osmolar Contrast (ICD-10-PCS; 2022-12-12)
PROC: 3E1K88Z Irrigation of Genitourinary Tract using Irrigating Substance, Via Natural or Artificial Opening Endoscopic (ICD-10-PCS; 2022-12-12)
PROC: 0T768DZ Dilation of Right Ureter with Intraluminal Device, Via Natural or Artificial Opening Endoscopic (ICD-10-PCS; principal; 2022-12-12 14:00)
DX: S82.041A Displaced comminuted fracture of right patella, initial encounter for closed fracture (principal); N13.6 Pyonephrosis; E78.5 Hyperlipidemia, unspecified; I10 Essential (primary) hypertension; E11.9 Type 2 diabetes mellitus without complications; K59.00 Constipation, unspecified; I25.10 Atherosclerotic heart disease of native coronary artery without angina pectoris; I25.2 Old myocardial infarction; Z88.5 Allergy status to narcotic agent; Z60.2 Problems related to living alone; Z88.2 Allergy status to sulfonamides; Z95.5 Presence of coronary angioplasty implant and graft; Z85.3 Personal history of malignant neoplasm of breast; Z79.02 Long term (current) use of antithrombotics/antiplatelets; Z86.73 Personal history of transient ischemic attack (TIA), and cerebral infarction without residual deficits; Z90.12 Acquired absence of left breast and nipple; Z79.84 Long term (current) use of oral hypoglycemic drugs; Z79.82 Long term (current) use of aspirin; Z90.710 Acquired absence of both cervix and uterus; Z79.899 Other long term (current) drug therapy; W01.0XXA Fall on same level from slipping, tripping and stumbling without subsequent striking against object, initial encounter; Y99.9 Unspecified external cause status; Y93.01 Activity, walking, marching and hiking; Y92.512 Supermarket, store or market as the place of occurrence of the external cause
CPT/HCPCS: 36415; 51610; 73700; 74178; 74450; 76770; 80048; 80053; 81001; 82947; 83735; 84100; 85025; 85027; 85610; 87086; 87088; 96372; 97110; 97116; 97161; 97165; 97530; 97760; 99285; G0378; J0696; J2001; J2250; J2270; J2371; J2405; J2704; J3010; J7030; Q9967

== ENCOUNTER 2023-02-06 06:52 | Day surgery (SDC) | payer OTHER ==
[2023-01-22 10:28] LABS: Absolute Lymphocytes (CBC) 3.2 K/uL (0.7-4.9); Hematocrit 42.8 % (36.0-45.0); Lymphocytes % 30.7 % (15.3-44.8); MPV 9.1 fL (7.6-11.3); Platelets 283 thou/uL (152-406); RBC Red Blood Cell Count 4.82 M/uL (3.86-4.86)
[2023-01-22 10:39] LABS: Potassium 3.5 mEq/L (3.5-5.1)
[2023-01-22 10:57] LABS: Protime INR 1.07
--- NOTE | 2023-01-22 11:12 | RAD REPORT ---
EXAM DESCRIPTION: RAD - Chest Pa And Lat (2 Views) - 01/22/2023 10:13 am CLINICAL HISTORY: pdre op for surgery. Hypertension COMPARISON: Chest Single View dated 03/26/2016; Chest Single View dated 12/24/2015; Chest Single View dated 12/23/2015; Chest Single View dated 12/23/2015 TECHNIQUE: PA and lateral views of the chest were obtained. FINDINGS: The lungs are clear. Heart size is normal and central vasculature is within normal limits. No pleural effusion or pneumothorax seen. No acute bony finding noted. Left breast soft tissues resu lt in some under penetration of the left hemithorax. Surgical clips present in the left axilla. IMPRESSION: No acute cardiopulmonary process.
[2023-01-22 12:16] LABS: Blood Morphology Comment NOT SEEN (NOT SEEN); Platelet Estimate ADEQ; White Blood Cell Scan OK (OK)
--- NOTE | 2023-01-23 13:45 | EKG ---
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: VELMA MEASUREMENT RESULTS: Intervals: Rate: 65 MI: 164 QRSD: 92 QT: 386 QTc: 401 Chase: P: 61 MI: 164 QRS: -54 T: -26 INTERPRETIVE STATEMENTS: Normal sinus rhythm Left anterior fascicular block Minimal voltage criteria for LVH, may be normal variant Cannot rule out Inferior infarct (masked by fascicular block?), age undetermined Possible Anterior infarct, age undetermined T wave abnormality, consider lateral ischemia Abnormal ECG Compared to ECG 05/23/2017 16:46:18 T-wave abnormality now present Possible ischemia now present Myocardial infarct finding still present Electronically Signed On 01-23-23 13:40:41 [employer] by Juan Jose Dorado
[2023-02-06] MEDS ORDERED: NA CHLORIDE 0.9% 1,000 ML ONE (07:19)
[2023-02-06] MEDS ORDERED: ROCURONIUM 50 MG/5 ML VIAL IV ONE (08:12)
[2023-02-06] MEDS ORDERED: dexAMETHasone 10 MG/ML VIAL ONE (08:12)
[2023-02-06] MEDS ORDERED: LIDOCAINE 1% MPF 5 ML VIAL ONE (08:12)
[2023-02-06] MEDS ORDERED: FENTANYL CITR 100 MCG/2 ML ONE (08:12)
[2023-02-06] MEDS ORDERED: propofoL 200 MG/20 ML VIAL IV ONE (08:12)
[2023-02-06] MEDS ORDERED: ONDANSETRON 4 MG/2 ML VIAL ONE (08:12)
[2023-02-06] MEDS: CEFAZOLIN SODIUM 2 GM/VIAL ONE ×2 (08:24→08:32)
[2023-02-06] MEDS ORDERED: SUGAMMADEX SODIUM 200 MG/2 ML VIAL IV ONE (09:04)
[2023-02-06] MEDS ORDERED: CODEINE 30MG/APAP 300MG TAB PO PRN (09:52)
[2023-02-06] MEDS ORDERED: PHENAZOPYRIDINE 100MG TAB PO ONE ×2 (09:52→10:17)
[2023-02-06] MEDS ORDERED: TRAMADOL 37.5mg/APAP 325mg PER TAB PO ONE (09:54)
[2023-02-06 11:34] VITALS: BP 144/73; TEMP 97.6; O2SAT 97
--- NOTE | 2023-02-06 12:54 | RAD REPORT ---
EXAM DESCRIPTION: RAD - Urethrocystogrphy Retrograde - 02/06/2023 9:33 am CLINICAL HISTORY: RIGHT STENT COMPARISON: None available. FINDINGS: 17 images were sent to PACS, documenting right ureteral stent placement procedure. No radi ologist was available for the procedure, nor will any image interpretation he provided. Please refer to the procedural report for additional details. Fluoroscopy time: 31 seconds. IMPRESSION: Documentation of fluoroscopy utilization as above.
--- NOTE | 2023-02-06 19:47 | OP ---
Surgeon: GRIFFIN RAMIREZ Preoperative Diagnoses: 1.Right hydronephrosis. 2.Right obstructive ureterolithiasis. Postoperative Diagnoses: 1.Right hydronephrosis. 2.Right obstructive ureterolithiasis. 3.Right ureteral stricture disease. 4.Distal right ureteral stricture. Principal Procedures: 1.Cystoscopy. 2.Right retrograde pyelography. 3.Right ureteroscopy with stone basketing. 4.Right ureteral stent exchange. Indication For Procedure: Ms. Galindo was seen as an inpatient with massive hydronephrosis, although she was having pain contralaterally. There was an obstructing ureteral calculus that was observed wi th massive hydronephrosis indicative of chronic obstruction with ureteral tortuosity. She underwent stent placement and presents today for definitive management of the stone. Procedure In Detail: The patient was consented in the preoperative holding area before being transfe rred to the operative suite where general anesthesia was induced. She was given Ancef 2 g IV antimic robial prophylaxis, and pneumo boots were provided for DVT prophylaxis. She was placed in the lithot yanely position, padded and secured to the table appropriately. Her genitalia were prepped with Hibicle ns and draped in standard fashion. The case was begun using the 22-Bulgarian rigid cystoscope to attemp t to traverse the urethra and into the bladder, but there was some stenosis within the proximal ureth ra. As a result, I utilized the blunt obturator for the cystoscope and was able to dilate and naviga te beyond this point of obstruction into her bladder. I then decompressed her bladder of fluid and u rine and surveyed it. While there was some fibrinous debris around the stent, there were no papillar y mucosal lesions or foreign bodies noted within the bladder. The stent was emanating from the right ureteral orifice; so, I grasped the tip of the stent and delivered it to the meatus leaving the prox imal coil within the proximal ureter/renal pelvis. I passed a Sensor wire via the stent coiling it i n the putative collecting system and removed the stent over the wire leaving the wire in place. I th en passed a dual-lumen catheter over the wire into the mid ureter and backed it into the distal urete r where I performed a retrograde pyelogram via the second lumen of the dual-lumen catheter. Right retrograde pyelography: Using a 70:30 mixture of Omnipaque and saline, contrast was injected v ia the second lumen of the dual-lumen catheter and did propagate up the mid into the proximal ureter where there was evidence of some ureteral filling defect almost a bead like appearance, before enteri ng the renal pelvis where there was still significant caliectasis. The lower pole calyces did feel, did fill, and eventually the renal pelvis. I thus removed the dual-lumen catheter and performed dire ct vision semi-rigid ureteroscopy using pressurized saline as the irrigant. I was able to pass the u reteroscope via the urethra into her ureteral orifice and up the distal into the mid and proximal ure ter before I encountered the ureteral calculus. It was somewhat flat in appearance, likely approxima tely 3 to 4 mm in thickness, but the diameter was nearly a cm. I was able to grasp the calculus usin g a 0-tipped 1.9-Bulgarian Nitinol basket and deliver it along with the stone intact. This was sent for chemical analysis. I then replaced the ureteroscope into the distal and advanced it into the mid an d proximal ureter and even into the renal pelvis just beyond the UPJ to ensure no additional calculi were seen. I surveyed the ureter on the way out and there was evidence of slight ureteral stricture disease/narrowing at the pelvic inlet. As a result, I back-loaded the cystoscope over the safety wir e and passed a 6-Bulgarian by 24 cm double-J ureteral stent with a coil observed fluoroscopically in the upper pole of the kidney. An additional coil cystoscopically was formed in the bladder. Of note, b efore I passed the stent into her collecting system, I did pass the dual-lumen catheter over the safe ty wire this time all the way into the collecting system and I aspirated the collecting system of a s mall amount of debris and decompressed the hydronephrosis a bit. I took care to avoid complete decom pression of the kidney in an effort to minimize the risk of subcapsular hematoma formation. As a res ult, after decompressing essentially the pelvis, there was still caliectasis noted on fluoroscopic im aging. Once this was done, I then back-loaded the cystoscope over the safety wire and placed the patience nt as previously described. In the end, I decompressed her bladder of fluid and urine and removed th e cystoscope. I then took her out of the lithotomy position before she was awakened from general ane sthesia. She was then transferred to a stretcher and then transferred to the recovery room in good c ondition. Complications: None. Discharge Disposition: Follow up should be established in 2 to 4 weeks' time for cystoscopy and righ t ureteral stent extraction. Subsequent followup will be required, approximately 6 weeks to 3 months after that with a repeat preclinic ultrasound to assess for recurrence or persistence of hydronephro sis, potentially indicative of worsening of the distal ureteral stricture disease. CELINE/ASHLEY Voice ID: [id number] Report ID: [id number]
== END 2023-02-06 11:20 | disposition home or self-care (01) ==
LOC: OR 06:52
PROVIDERS: ATTEND Urology
PROC: 0T768DZ Dilation of Right Ureter with Intraluminal Device, Via Natural or Artificial Opening Endoscopic (ICD-10-PCS; 2023-02-06)
PROC: 0TC68ZZ Extirpation of Matter from Right Ureter, Via Natural or Artificial Opening Endoscopic (ICD-10-PCS; principal; 2023-02-06 08:15)
DX: N13.2 Hydronephrosis with renal and ureteral calculous obstruction (principal); I10 Essential (primary) hypertension; E78.5 Hyperlipidemia, unspecified; E11.9 Type 2 diabetes mellitus without complications
CPT/HCPCS: 93005; 87088; 85025; 87086; 80048; 36415; 85610; 82947 ×2; 88300; 82360; 71046; 74450; 51610; 52352; 52332; J2704; J2001; J3010; J2405; J7030; J1100